=== PATIENT | male | born 1935 | race Caucasian/White ===

== ENCOUNTER 2016-12-08 20:59 | Inpatient (IN) | payer OTHER, MEDICARE ==
[~2016-12-08] VITALS: Ht 185.4 cm; Wt 71.5 kg
[~2016-12-08 20:59] MED LIST: ASPI325T PO; ATOR40TA PO; CARV12.5 PO; DONE5TAB14 PO; FERR324T4 PO; FLUT50I NASAL; FURO20 PO; GABA300C3 PO; HYDRA25 PO; IPRAAER INH; LEVO500T3 PO; LORA10 PO; LORTA5 PO; MEDR4PAK3 PO; PROT40TA PO; QUET25 PO; RISP.25 PO; SERT100 PO; [UNRECOGNIZED DRUG - CODE] PO
[2016-12-08] MEDS ORDERED: methylPREDNISolone SOD SUCC 125 MG/2 ML VIAL IV ONE (21:15)
[2016-12-08] MEDS ORDERED: SODIUM CHLORIDE 0.9% FLUSH 10 ML FLUSH IVF PRN (21:15)
[2016-12-08] MEDS ORDERED: cefTRIAXone INJ 1,000 MG in SODIUM CHLORIDE 0.9% INJ 100 ML IV ONE (21:15)
[2016-12-08] MEDS ORDERED: AZITHROMYCIN 250 MG TAB PO ONE (21:15)
[2016-12-08 21:23] VITALS: BP 142/60; PULSE 60; RESP 20; TEMP 99.6; O2SAT 97
[2016-12-08 21:27] VITALS: BP 114/57; PULSE 70; RESP 20; TEMP 99.6; O2SAT 97
[2016-12-08] MEDS: RESP: ALBUTEROL 2.5 MG/IPRATROPIUM 0.5 MG NEB (SCH) INH (21:27)
[2016-12-08 21:43] LABS: BLOOD GAS CARBOXYHEMOGLOBIN 1.7 % (0-4); BLOOD GAS HCO3 33 mmol/L (22-26); BLOOD GAS METHEMOGLOBIN 0.4 % (0-2); BLOOD GAS O2 HGB SATURATION 96 % (90-100); BLOOD GAS OXYGEN CONTENT 14.1 Vol % (12.0-20.0); BLOOD GAS PCO2 61 mmHg (38-42); BLOOD GAS PO2 105 mmHG (61-120); BLOOD GAS TOTAL HGB 10.3 G/DL (12.0-16.0); TEMP CORR TO 98.6
[2016-12-08 21:44] LABS: CRITICAL VALUE YES; DRAW SITE LT RADIAL; LITER FLOW 4 L/M; NUMBER OF ARTERIAL PUNCTURES 1; OXYGEN DEVICE NASAL CANNULA; STAT YES; ULNAR PULSE PRESENT
[2016-12-08] MEDS ORDERED: GABA300C5 PO (21:50)
[2016-12-08] MEDS ORDERED: PROT40TA PO (21:50)
[2016-12-08] MEDS ORDERED: HYDR10TA23 PO (21:50)
[2016-12-08] MEDS ORDERED: NORC5TAB PO (21:50)
[2016-12-08] MEDS ORDERED: CARV25TA PO (21:50)
[2016-12-08] MEDS ORDERED: LORA10TA PO (21:50)
[2016-12-08] MEDS ORDERED: COUM4TAB PO (21:50)
[2016-12-08] MEDS ORDERED: ASPI325T PO (21:50)
[2016-12-08] MEDS ORDERED: SERT-129 PO (21:50)
[2016-12-08] MEDS ORDERED: LIPI10TA PO (21:50)
[2016-12-08] MEDS ORDERED: OXYB5TAB10 PO (21:50)
[2016-12-08] MEDS ORDERED: FURO40TA PO (21:50)
[2016-12-08] MEDS ORDERED: FERR325T PO (21:50)
[2016-12-08] MEDS ORDERED: METH5TAB PO (21:50)
[2016-12-08 21:59] VITALS: BP 127/61; PULSE 60; RESP 20; TEMP 99.6; O2SAT 95
--- NOTE | 2016-12-08 22:04 | PD ---
HPI Chief Complaint: Respiratory Distress Time Seen by Provider: 21:12 Travel History International Travel<30 days: No Contact w/Intl Traveler<30days: No Traveled to known affect area: No History of Present Illness HPI 81-year-old male arrives by EMS from [facility]. He was short of breath there. He's known to have COPD. Paramedics note he was not on oxygen at the time and his O2 sat was 85%. 4 L nasal cannula was applied and the O2 sat increased to 97%. Evidently the patient was "declining" her the nurse on scene. He was observed to have a productive cough or rhonchi bilaterally. In the ER the patient moans now and then and coughs. He states he has no pain and no fever. Patient has history of dementia limiting history in this scenario. PFSH Past Medical History Depression: Yes Heart Rhythm Problems: Yes (a fib) Cancer: Yes (PROSTATE) Cardiac Catheterization: Yes Cardiovascular Problems: Yes (PACEMAKER, valves replaced , CABG) High Cholesterol: Yes Chest Pain: No Congestive Heart Failure: No COPD: Yes Coronary Artery Disease: No Dementia: Yes Diabetes: No Diminished Hearing: No Endocrine: No Gastrointestinal Disorders: No Glaucoma: No Genitourinary: Yes (IMPLANT TO L ARM TO DECREASE TESTOSTERONE LEVELS S/P PROSTATE CA) Headaches: No Hepatitis: No Hiatal Hernia: No Hypertension: Yes Musculoskeletal: No Neurologic: Yes (NEUROPATHY) Psychiatric: Yes Reproductive: No Respiratory: Yes (COPD) Integumentary: No Immunizations Current: Yes Seizures: No Thyroid Disease: No Tetanus Vaccination: < 5 Years Influenza Vaccination: Yes Past Surgical History Body Medical Devices: PACEMAKER Cardiac Surgery: Yes (VALVE REPLACED 2005, STENTS, PACEMAKER) Coronary Artery Bypass Graft: Yes Pacemaker: Yes (left pacemaker ) Other Surgery: Yes (Pacemaker, valves replaced , CABG) Social History Alcohol Use: No Tobacco Use: No Substance Use: No Allergies-Medications (Allergen,Severity, Reaction): Coded Allergies: No Known Allergies (Unverified , 12/08/16) Reported Meds & Prescriptions Reported Meds & Active Scripts Active Reported [place] (Hydrocodone-Acetaminophen) 5-325 mg Tab 1 Tab PO Q6H PRN Coumadin (Warfarin) 4 Mg Tab 4 Mg PO DAILY Methadone (Methadone HCl) 5 Mg Tab 5 Mg PO HS Lipitor (Atorvastatin Calcium) 10 Mg Tab 10 Mg PO HS Hydralazine (Hydralazine HCl) 10 Mg Tab 10 Mg PO TID Take with a meal Gabapentin 300 Mg Cap 300 Mg PO TID Ditropan (Oxybutynin Chloride) 5 Mg Tab 5 Mg PO Q12HR Carvedilol 25 Mg Tab 25 Mg PO BID Sertraline (Sertraline HCl) 100 Mg Tab 100 Mg PO DAILY Loratadine 10 Mg Tab 10 Mg PO DAILY Furosemide 40 Mg Tab 40 Mg PO DAILY Ferrous Sulfate 325 Mg Tab 325 Mg PO DAILY Aspirin 325 Mg Tab 325 Mg PO DAILY Protonix (Pantoprazole Sodium) 40 Mg Tab 40 Mg PO DAILY Review of Systems ROS Limitations: Poor Historian Physical Exam Narrative GENERAL: 81-year-old male mild distress occasional cough groan's yes and no to some questions oblivious to others SKIN: Focused skin assessment warm/dry. HEAD: Atraumatic. Normocephalic. EYES: Pupils equal and round. No scleral icterus. No injection or drainage. ENT: No nasal bleeding or discharge. Mucous membranes pink and moist. NECK: Trachea midline. No JVD. CARDIOVASCULAR: Regular rate and rhythm. No murmur appreciated. RESPIRATORY: Occasional cough. Rhonchi bilaterally. No dyspnea. GASTROINTESTINAL: Abdomen soft, non-tender, nondistended. Hepatic and splenic margins not palpable. MUSCULOSKELETAL: No obvious deformities. No clubbing. No cyanosis. No edema. NEUROLOGICAL: Awake and alert. No obvious cranial nerve deficits. Groans yes and no occasionally. PSYCHIATRIC: Appropriate mood and affect; insight and judgment normal. Data Data Last Documented VS Vital Signs Date Time Temp Pulse Resp B/P Pulse Ox O2 Delivery O2 Flow Rate FiO2 12/08/16 22:37 60 20 109/66 97 BiPAP 6 12/08/16 22:10 50 12/08/16 21:59 99.6 VS reivewed Orders Electrocardiogram (12/08/16 21:12) Basic Metabolic Panel (Bmp) (12/08/16 21:12) Complete Blood Count With Diff (12/08/16 21:12) Chest, Single Ap (12/08/16 21:12) Arterial Blood Gas (Abg) (12/08/16 21:12) Ecg Monitoring (12/08/16 21:12) Iv Access Insert/Monitor (12/08/16 21:12) Sodium Chloride 0.9% Flush (Ns Flush) (12/08/16 21:15) Ceftriaxone Inj (Rocephin Inj) (12/08/16 21:15) Azithromycin (Zithromax) (12/08/16 21:15) Albuterol-Ipratropium Neb (Duoneb Neb) (12/08/16 21:15) Methylprednisolone So Succ Inj (Solumedr (12/08/16 21:15) Resp Bipap / Cpap Non Invas Vt (12/08/16 ) Arterial Blood Gas (Abg) (12/08/16 ) Admit Order (Ed Use Only) (12/08/16 23:06) Labs Laboratory Tests Test 12/08/16 12/08/16 12/08/16 19:35 21:25 22:55 White Blood Count 15.0 TH/MM3 Red Blood Count 3.88 MIL/MM3 Hemoglobin 10.2 GM/DL Hematocrit 31.3 % Mean Corpuscular Volume 80.8 FL Mean Corpuscular Hemoglobin 26.2 PG Mean Corpuscular Hemoglobin 32.4 % Concent Red Cell Distribution Width 16.3 % Platelet Count 140 TH/MM3 Mean Platelet Volume 8.4 FL Neutrophils (%) (Auto) 82.5 % Lymphocytes (%) (Auto) 4.7 % Monocytes (%) (Auto) 12.7 % Eosinophils (%) (Auto) 0.0 % Basophils (%) (Auto) 0.1 % Neutrophils # (Auto) 12.4 TH/MM3 Lymphocytes # (Auto) 0.7 TH/MM3 Monocytes # (Auto) 1.9 TH/MM3 Eosinophils # (Auto) 0.0 TH/MM3 Basophils # (Auto) 0.0 TH/MM3 CBC Comment DIFF FINAL Differential Comment Sodium Level 141 MEQ/L Potassium Level 4.0 MEQ/L Chloride Level 101 MEQ/L Carbon Dioxide Level 34.0 MEQ/L Anion Gap 6 MEQ/L Blood Urea Nitrogen 50 MG/DL Creatinine 1.62 MG/DL Estimat Glomerular Filtration 41 ML/MIN Rate Random Glucose 128 MG/DL Calcium Level 8.6 MG/DL Blood Gas Puncture Site LT RADIAL RT RADIAL Blood Gas Patient Temperature 98.6 98.6 Blood Gas HCO3 33 mmol/L 32 mmol/L Blood Gas Base Excess 7.0 mmol/L 6.3 mmol/L Blood Gas Oxygen Saturation 96 % 95 % Arterial Blood pH 7.35 7.35 Arterial Blood Partial 61 mmHg 59 mmHg Pressure CO2 Arterial Blood Partial 105 mmHG 86 mmHG Pressure O2 Arterial Blood Oxygen Content 14.1 Vol % 13.3 Vol % Arterial Blood 1.7 % 1.7 % Carboxyhemoglobin Arterial Blood Methemoglobin 0.4 % 0.5 % Blood Gas Hemoglobin 10.3 G/DL 9.9 G/DL Oxygen Delivery Device NASAL CANNULA BIPAP Blood Gas Liter Flow 4 L/M Blood Gas Ventilator Setting IPAP=12 EPAP=6 Blood Gas Inspired Oxygen 45 % MDM Medical Decision Making Medical Screen Exam Complete: Yes Emergency Medical Condition: Yes Medical Record Reviewed: Yes Differential Diagnosis PNA, COPD, renal failure, electrolyte imbalance, anemia, polypharmacy Narrative Course CBC & BMP Diagram 12/08/16 19:35 ABG 7.35/61/33 ABG O2 105 on 4 L nasal cannula ABG 7.35/59/32 ABG O2 86 on BiPAP 45% FiO2 Last 24 hours Impressions Chest X-Ray 12/08/16 2112 Signed Impressions: Service Date/Time: Thursday, December 08, 2016 21:42 - CONCLUSION: Patchy non-consolidative infiltrates throughout the right lung. Possible small right pleural effusion. Delvis Cage MD EKG shows an electronic ventricular paced rhythm at a rate of 60 The patient has pneumonia. Blood cultures drawn and antibiotics started. An element of COPD is likely present as well and he was treated for the same. Case discussed with Dr. Zimmerman. Diagnosis Primary Impression: Pneumonia Qualified Code: J18.9 - Pneumonia of both lungs due to infectious organism, unspecified part of lung Admitting Information Admitting Physician Requests: Admit Vern Gambino MD Dec 08, 2016 22:04
[2016-12-08 22:10] VITALS: O2SAT 96
[2016-12-08 22:11] LABS: AUTOMATED NEUTROPHIL # 12.4 TH/MM3 (1.8-7.7); BASOPHIL % 0.1 % (0.0-2.0); HEMATOCRIT 31.3 % (39.0-51.0); HEMO FLAGS DIFF FINAL; LYMPH % 4.7 % (9.0-44.0); LYMPHOCYTE # 0.7 TH/MM3 (1.0-4.8); MEAN CELL VOLUME 80.8 FL (80.0-100.0); MEAN CORPUSCULAR HEMOGLOBIN 26.2 PG (27.0-34.0); MEAN CORPUSCULAR HGB CONC 32.4 % (32.0-36.0); MONO % 12.7 % (0.0-8.0); NEUT % 82.5 % (16.0-70.0); PLATELET COUNT 140 TH/MM3 (150-450); RED BLOOD COUNT 3.88 MIL/MM3 (4.50-5.90); RED CELL DISTRIBUTION WIDTH 16.3 % (11.6-17.2)
--- NOTE | 2016-12-08 22:34 | RADRPT ---
EXAM DATE/TIME: 12/08/2016 21:42 [place] COMPARISON: CHEST SINGLE AP, May 09, 2016, 18:22. INDICATIONS : Cough. Congestion. MEDICAL HISTORY : Cardiovascular disease. SURGICAL HISTORY : Pacemaker. CABG. ENCOUNTER: Initial ACUITY: 1 day PAIN SCORE: 7/10 LOCATION: Bilateral chest FINDINGS: Patchy areas of infiltrate are seen throughout the right lung. There is blunting of the costophrenic angle suggesting coexistent right pleural effusion. The heart is normal size. Moderate tortuosity descending thoracic aorta. Evidence of prior median sternotomy and valve replacement. Cardiac pacer leads intact. Left lung is clear. CONCLUSION: Patchy non-consolidative infiltrates throughout the right lung. Possible small right pleural effusio n. Delvis Cage MD on December 08, 2016 at 22:31 Board Certified Radiologist. This report was verified electronically.
[2016-12-08 22:37] VITALS: BP 109/66; PULSE 60; RESP 20; O2SAT 97
[2016-12-08 23:21] LABS: BLOOD GAS BASE EXCESS 6.3 mmol/L (-2-2); BLOOD GAS CARBOXYHEMOGLOBIN 1.7 % (0-4); BLOOD GAS HCO3 32 mmol/L (22-26); BLOOD GAS METHEMOGLOBIN 0.5 % (0-2); BLOOD GAS O2 HGB SATURATION 95 % (90-100); BLOOD GAS OXYGEN CONTENT 13.3 Vol % (12.0-20.0); BLOOD GAS PCO2 59 mmHg (38-42); BLOOD GAS PO2 86 mmHG (61-120); BLOOD GAS TOTAL HGB 9.9 G/DL (12.0-16.0); CRITICAL VALUE YES; TEMP CORR TO 98.6
[2016-12-08 23:22] LABS: DRAW SITE RT RADIAL; FIO2 45 %; NUMBER OF ARTERIAL PUNCTURES 1; OXYGEN DEVICE BIPAP; STAT YES; ULNAR PULSE PRESENT; VENT SETTINGS IPAP=12 EPAP=6
--- NOTE | 2016-12-08 23:26 | HHI.HP ---
HPI Service [facility] Primary Care Physician [facility] Admission Diagnosis PNA, AMS Diagnoses: (1) COPD (chronic obstructive pulmonary disease) Diagnosis: Principal (2) PNA (pneumonia) Diagnosis: Principal (3) Hypoxia Diagnosis: Principal (4) SANYA (acute kidney injury) Diagnosis: Principal (5) Dementia Diagnosis: Principal (6) DNR (do not resuscitate) Diagnosis: Principal Travel History International Travel<30 Days: No Contact w/Intl Traveler <30 Da: No Traveled to Known Affected Are: No History of Present Illness This is an 81-year-old DNR male with a PMH of COPD, Dementia, HTN, Prostate CA, CAD s/p CABG and A-fib who was sent to the ER from SNF secondary to SOB and hypoxia, O2 sat per EMS 85% on RA. Placed on 4L NC w/ O2 sat 97%. Pt unable to provide history. On arrival, BP 114/57, HR 70, O2 sat 97% on 4L seek, Temp 99.6. While in the ER, patient with increased work of breathing and recurrent hypoxia, placed on BiPAP w/ O2 sat 97% on 50% FIO2. ABG w/ pH 7.35, PCO2 61, PO2 105 on 4L NC, repeat ABG with pH 7.35, PCO2 59, PO2 86 on BiPAP. WBC 15. Creatinine 1.62, previously 1.17 05/12/16. CXR with patchy infiltrate throughout right lung, possible small right pleural effusion. S/p Rocephin/Zithro in ER. Review of Systems Except as stated in HPI: all other systems reviewed are Neg ROS: 14 point review of systems otherwise negative. Past Family Social History Past Medical History PMH: COPD, Dementia, HTN, Prostate CA, CAD s/p CABG and A-fib Past Surgical History PAST SURGICAL HISTORY: Pacemaker, Valve Replacement, Cardiac Stent, CABG Allergies: Coded Allergies: No Known Allergies (Unverified , 12/08/16) Family History PAST FAMILY HISTORY: Reviewed. No h/o DM or CAD Social History PAST SOCIAL HISTORY: Negative for alcohol, tobacco or drugs. Physical Exam Vital Signs Vital Signs Date Time Temp Pulse Resp B/P Pulse Ox O2 Delivery O2 Flow Rate FiO2 12/08/16 22:37 60 20 109/66 97 BiPAP 6 12/08/16 22:10 96 50 12/08/16 21:59 99.6 60 20 127/61 95 Nasal Cannula 3 12/08/16 21:27 99.6 70 20 114/57 97 Nasal Cannula 4 12/08/16 21:23 99.6 60 20 142/60 97 Physical Exam PE: GENERAL: Elderly white male in no acute distress. Currently on BiPAP, intermittent moaning. HEENT: PERRLA, EOMI. No scleral icterus or conjunctival pallor. No lid lag or facial droop. CARDIOVASCULAR: Regular rate and rhythm. No obvious murmurs to auscultation. No chest tenderness to palpation. RESPIRATORY: Coarse breath sounds bilaterally, occasional wheezing. GASTROINTESTINAL: Abdomen soft, non-tender, nondistended. BS normal. MUSCULOSKELETAL: Extremities without clubbing, cyanosis, or edema. No obvious deformities. NEUROLOGICAL: Awake, alert, not following commands. No focal neurologic deficits. Moving both upper and lower extremities spontaneously. Laboratory Laboratory Tests Test 12/08/16 12/08/16 12/08/16 19:35 21:25 22:55 White Blood Count 15.0 Red Blood Count 3.88 Hemoglobin 10.2 Hematocrit 31.3 Mean Corpuscular Volume 80.8 Mean Corpuscular Hemoglobin 26.2 Mean Corpuscular Hemoglobin 32.4 Concent Red Cell Distribution Width 16.3 Platelet Count 140 Mean Platelet Volume 8.4 Neutrophils (%) (Auto) 82.5 Lymphocytes (%) (Auto) 4.7 Monocytes (%) (Auto) 12.7 Eosinophils (%) (Auto) 0.0 Basophils (%) (Auto) 0.1 Neutrophils # (Auto) 12.4 Lymphocytes # (Auto) 0.7 Monocytes # (Auto) 1.9 Eosinophils # (Auto) 0.0 Basophils # (Auto) 0.0 CBC Comment DIFF FINAL Differential Comment Sodium Level 141 Potassium Level 4.0 Chloride Level 101 Carbon Dioxide Level 34.0 Anion Gap 6 Blood Urea Nitrogen 50 Creatinine 1.62 Estimat Glomerular Filtration 41 Rate Random Glucose 128 Calcium Level 8.6 Blood Gas Puncture Site LT RADIAL RT RADIAL Blood Gas Patient Temperature 98.6 98.6 Blood Gas HCO3 33 32 Blood Gas Base Excess 7.0 6.3 Blood Gas Oxygen Saturation 96 95 Arterial Blood pH 7.35 7.35 Arterial Blood Partial 61 59 Pressure CO2 Arterial Blood Partial 105 86 Pressure O2 Arterial Blood Oxygen Content 14.1 13.3 Arterial Blood 1.7 1.7 Carboxyhemoglobin Arterial Blood Methemoglobin 0.4 0.5 Blood Gas Hemoglobin 10.3 9.9 Oxygen Delivery Device NASAL CANNULA BIPAP Blood Gas Liter Flow 4 Blood Gas Ventilator Setting IPAP=12 EPAP=6 Blood Gas Inspired Oxygen 45 Result Diagram: 12/08/16193412/08/161934 Assessment and Plan Problem List: (1) COPD (chronic obstructive pulmonary disease) ICD Code: J44.9 Status: Acute (2) PNA (pneumonia) ICD Code: J18.9 Status: Acute (3) Hypoxia ICD Code: R09.02 Status: Acute (4) SANYA (acute kidney injury) ICD Code: N17.9 Status: Acute (5) Dementia ICD Code: F03.90 Status: Acute (6) DNR (do not resuscitate) ICD Code: Z66 Status: Acute Assessment and Plan A/P: 1. COPD: Chronic Respiratory Failure w/ Acute Exacerbation, initially on 4L NC w/ O2 sat 97% however increased work of breathing and persistent hypoxia, currently on BIPAP. Wean as tolerated. Solu-Medrol, DuoNeb, Symbicort. 2. PNA: CXR w/ patchy infiltrates through right lung, possible small right pleural effusion, images reviewed by me. S/p Rocephin/Zithro in ER, will continue w/ broad spectrum antibiotics as pt from SNF, start IV Vanc/Cefepime. DuoNeb prn. 3. Hypoxia: O2 sat 85% per EMS, currently 97% on BIPAP, will wean as tolerated. 4. SANYA: Creatinine 1.62, previously 1.17 on 05/12/16, check U/a, IVF for hydration, repeat labs in am. 5. Dementia: awake/alert, however not answering questions or following commands, appears to be baseline. 6. DNR: Code Status confirmed, paperwork in chart. 7. DVT Prophylaxis: SCD/Teds. 8. Social work for d/c planning as needed. 9. Case discussed w/ ER physician at length. Physician Certification 2 Midnight Certification Type: Admission for Inpatient Services Order for Inpatient Services The services are ordered in accordance with Medicare regulations or non- Medicare payer requirements, as applicable. In the case of services not specified as inpatient-only, they are appropriately provided as inpatient services in accordance with the 2-midnight benchmark. Estimated LOS (days): 2 days is the estimated time the patient will need to remain in the hospital, assuming treatment plan goals are met and no additional complications. Post-Hospital Plan: Not yet determined Trish Zimmerman MD Dec 08, 2016 23:26
[2016-12-08] MEDS ORDERED: BISACODYL 10 MG SUPP RECTAL PRN (23:30)
[2016-12-08] MEDS ORDERED: ONDANSETRON HCL 4 MG/2 ML VIAL IVP PRN (23:30)
[2016-12-08] MEDS ORDERED: ACETAMINOPHEN 325 MG TAB PO PRN (23:30)
[2016-12-08] MEDS ORDERED: RESP: ALBUTEROL 2.5 MG/IPRATROPIUM 0.5 MG NEB (PRN) NEB (23:30)
[2016-12-08] MEDS ORDERED: MORPHINE SULFATE 4 MG/ML INJ IV PRN (23:30)
[2016-12-08] MEDS ORDERED: SODIUM CHLORIDE 0.9% FLUSH 10 ML FLUSH IV FLUSH PRN (23:30)
[2016-12-09] VITALS (29 sets, daily range): BP systolic 110–168; BP diastolic 59–107; PULSE 60–82; RESP 16–22; TEMP 98.3–99; O2SAT 93–97
[2016-12-09] MEDS: methylPREDNISolone SOD SUCC 40 MG/1 ML VIAL IV PUSH SCH ×3 (03:27→16:25)
[2016-12-09 07:09] LABS: ALT (GPT) 18 U/L (12-78); ANION GAP 6 MEQ/L (5-15); AST (GOT) 18 U/L (15-37); BICARBONATE 31.6 MEQ/L (21.0-32.0); BLOOD UREA NITROGEN 49 MG/DL (7-18); CHLORIDE 104 MEQ/L (98-107); GLOMERULAR FILTRATION RATE 47 ML/MIN (>89); SODIUM (NA) 142 MEQ/L (136-145)
[2016-12-09 07:11] LABS: ALKALINE PHOSPHATASE 74 U/L (45-117); TOTAL BILIRUBIN ADULT 0.4 MG/DL (0.2-1.0)
[2016-12-09 07:13] LABS: AUTOMATED NEUTROPHIL # 11.5 TH/MM3 (1.8-7.7); BASOPHIL % 0.1 % (0.0-2.0); HEMATOCRIT 31.6 % (39.0-51.0); HEMO FLAGS DIFF FINAL; LYMPH % 3.4 % (9.0-44.0); LYMPHOCYTE # 0.4 TH/MM3 (1.0-4.8); MEAN CELL VOLUME 81.4 FL (80.0-100.0); MEAN CORPUSCULAR HEMOGLOBIN 26.8 PG (27.0-34.0); MONO % 1.9 % (0.0-8.0); NEUT % 94.6 % (16.0-70.0); PLATELET COUNT 139 TH/MM3 (150-450); RED BLOOD COUNT 3.89 MIL/MM3 (4.50-5.90); RED CELL DISTRIBUTION WIDTH 16.1 % (11.6-17.2); WHITE BLOOD COUNT 12.2 TH/MM3 (4.0-11.0)
[2016-12-09] MEDS: RESP: ALBUTEROL 2.5 MG/IPRATROPIUM 0.5 MG NEB (SCH) NEB ×4 (07:45→20:54)
[2016-12-09] MEDS: SODIUM CHLORIDE 0.9% FLUSH 10 ML FLUSH IV FLUSH SCH ×2 (09:05→20:02)
[2016-12-09] MEDS: CEFEPIME INJ 1,000 MG in SODIUM CHLORIDE 0.9% INJ 100 ML IV SCH ×2 (09:08→20:07)
[2016-12-09] MEDS: BUDESONIDE-FORMOTEROL 160/4.5 MCG INHALER INH SCH ×2 (10:24→20:01)
--- NOTE | 2016-12-09 13:24 | HHI.PR ---
Subjective Remarks Follow-up for pneumonia and COPD Patient thinks that his breathing is better, still confused, no fever or chills. On 2 L of oxygen. Objective Vitals Vital Signs Date Time Temp Pulse Resp B/P Pulse Ox O2 Delivery O2 Flow Rate FiO2 12/09/16 13:00 77 12/09/16 12:00 77 12/09/16 11:00 66 12/09/16 11:00 98.3 70 17 155/89 97 12/09/16 11:00 97 Nasal Cannula 2.00 12/09/16 10:00 64 12/09/16 09:00 70 12/09/16 08:00 66 12/09/16 07:47 97 Nasal Cannula 2.00 12/09/16 07:00 97 Nasal Cannula 2.00 12/09/16 07:00 64 12/09/16 07:00 98.3 73 18 130/73 97 12/09/16 06:00 70 12/09/16 05:00 66 12/09/16 04:00 70 12/09/16 03:32 97 Nasal Cannula 2.00 12/09/16 03:29 69 16 136/78 97 12/09/16 03:00 74 12/09/16 02:31 97 Nasal Cannula 2.00 12/09/16 02:13 61 12/09/16 01:49 99.0 62 20 130/80 95 12/09/16 01:30 96 4.00 12/09/16 01:17 97 45 12/09/16 00:26 60 20 110/59 97 BiPAP 6 12/08/16 22:37 60 20 109/66 97 BiPAP 6 12/08/16 22:10 96 50 12/08/16 21:59 99.6 60 20 127/61 95 Nasal Cannula 3 12/08/16 21:27 99.6 70 20 114/57 97 Nasal Cannula 4 12/08/16 21:23 99.6 60 20 142/60 97 I/O 12/08/16 12/08/16 12/08/16 12/09/16 12/09/16 12/09/16 07:00 15:00 23:00 07:00 15:00 23:00 Intake Total 50 ml Output Total 350 ml Balance -300 ml Intake Oral 50 ml Output Urine Total 350 ml Result Diagram: 12/09/16 0549 12/09/16 0549 Objective Remarks GENERAL: Elderly white male in no acute distress. On 2 L nasal cannula. HEENT: PERRLA, EOMI. No scleral icterus or conjunctival pallor. CARDIOVASCULAR: Regular rate and rhythm. No obvious murmurs to auscultation. No chest tenderness to palpation. RESPIRATORY: Occasional wheezing and rhonchi on the right. GASTROINTESTINAL: Abdomen soft, non-tender, nondistended. BS normal. MUSCULOSKELETAL: Extremities without clubbing, cyanosis, or edema. No obvious deformities. NEUROLOGICAL: Awake, alert, oriented to self and place but not to time. Moves extremities spontaneously. A/P Problem List: (1) COPD (chronic obstructive pulmonary disease) ICD Code: J44.9 Status: Acute (2) PNA (pneumonia) ICD Code: J18.9 Status: Acute (3) Hypoxia ICD Code: R09.02 Status: Acute (4) SANYA (acute kidney injury) ICD Code: N17.9 Status: Acute (5) Dementia ICD Code: F03.90 Status: Acute (6) DNR (do not resuscitate) ICD Code: Z66 Status: Acute Assessment and Plan This is an 81-year-old male with history of COPD, dementia, hypertension, coronary artery disease admitted for hypoxia from SNF. Acute hypoxic respiratory failure secondary to COPD exacerbation and pneumonia- previously on BiPAP, currently on 2 L of nasal cannula, continue oxygen support , Solu-Medrol, DuoNeb's, Symbicort. CXR w/ patchy infiltrates through right lung, possible small right pleural effusion, continue Vanc/Cefepime. Leukocytosis improved. Lasix on hold. Coronary artery disease-restart Coreg, hold hydralazine for now, restart statin SANYA: Creatinine 1.62, previously 1.17 on 05/12/16, urinalysis pending, continue IVF. Decreased rate, recheck BMP tomorrow. Dementia: awake/alert, however not answering questions or following commands, appears to be baseline. DO NOT RESUSCITATE DVT Prophylaxis: SCD/Teds. On Coumadin, restart. Discharge Planning Discharge back to SNF in 1-2 days. Walter Edge MD Dec 09, 2016 13:24
[2016-12-09] MEDS: SODIUM CHLOR 0.9% 1000 ML INJ 1,000 ML IV SCH (13:51)
[2016-12-09] MEDS: ASPIRIN 325 MG TAB PO SCH (13:51)
[2016-12-09] MEDS: FERROUS SULFATE 325 MG (65 MG ELEMENTAL IRON) TAB PO SCH (13:51)
[2016-12-09] MEDS: LORATADINE 10 MG TAB PO SCH (13:51)
[2016-12-09] MEDS ORDERED: CARVEDILOL 12.5 MG TAB PO ONE (16:00)
[2016-12-09] MEDS ORDERED: SERTRALINE HCL 100 MG TAB PO ONE (16:00)
[2016-12-09] MEDS: LORazepam 2 MG/ML VIAL IV PRN (16:25)
[2016-12-09 16:40] LABS: INTERNATIONAL NORMALIZED RATIO 3.2 RATIO; PROTHROMBIN TIME - PATIENT 37.4 SEC (9.8-11.6)
[2016-12-09] MEDS: GABAPENTIN 300 MG CAP PO SCH (18:45)
[2016-12-09] MEDS ORDERED: HALOPERIDOL LACTATE 5 MG/ML AMP IM ONE (19:45)
[2016-12-09] MEDS: ATORVASTATIN 10 MG TAB PO SCH (20:02)
[2016-12-09] MEDS: OXYBUTYNIN CHLORIDE 5 MG TAB PO SCH (20:04)
[2016-12-09] MEDS: CARVEDILOL 12.5 MG TAB PO SCH (20:04)
[2016-12-09] MEDS: METHADONE HCL 10 MG TAB PO SCH (20:05)
--- NOTE | 2016-12-09 21:05 | EKG ---
Date Performed: 12/08/2016 Time Performed: 21:48:35 PTAGE: 81 years EKG: ELECTRONIC VENTRICULAR PACEMAKER ABNORMAL RHYTHM ECG NO PREVIOUS TRACING DOCTOR: Cristina Jarrell Interpretating Date/Time 12/09/2016 21:03:26
[2016-12-10] VITALS (25 sets, daily range): BP systolic 131–182; BP diastolic 89–106; PULSE 62–88; RESP 18–22; TEMP 97.7–98.6; O2SAT 92–97
[2016-12-10] MEDS: SODIUM CHLOR 0.9% 1000 ML INJ 1,000 ML IV SCH (00:44)
[2016-12-10] MEDS: methylPREDNISolone SOD SUCC 40 MG/1 ML VIAL IV PUSH SCH ×2 (00:44→08:19)
[2016-12-10 01:10] LABS: BLOOD, URINE MOD (NEG); GLUCOSE,URINE NEG (NEG); HYALINE CAST, URINE 1 /lpf (RARE); KETONE, URINE NEG (NEG); MUCUS URINE FEW /lpf (OCC); NITRITE,URINE NEG (NEG); URINE COLOR YELLOW (YELLW/STRAW)
[2016-12-10 01:12] LABS: COMMENT (UR) CULT NOT INDICATED; CULTURE IF INDICATED CULT NOT INDICATED
[2016-12-10 06:41] LABS: INTERNATIONAL NORMALIZED RATIO 2.5 RATIO; PROTHROMBIN TIME - PATIENT 28.7 SEC (9.8-11.6)
[2016-12-10 06:45] LABS: POTASSIUM 3.5 MEQ/L (3.5-5.1)
[2016-12-10] MEDS ORDERED: ENALAPRILAT 1.25 MG/ML VIAL IV PRN (07:45)
[2016-12-10] MEDS ORDERED: cloNIDine HCL 0.1 MG TAB PO PRN (07:45)
[2016-12-10] MEDS: RESP: ALBUTEROL 2.5 MG/IPRATROPIUM 0.5 MG NEB (SCH) NEB ×3 (07:51→19:33)
[2016-12-10] MEDS: LORazepam 2 MG/ML VIAL IV PRN ×2 (08:17→17:01)
[2016-12-10] MEDS: ACETAMINOPHEN/HYDROcodone 325 MG/5 MG TAB PO PRN (08:17)
[2016-12-10] MEDS: PANTOPRAZOLE SOD 40 MG DELAYED RELEASE TAB PO SCH (08:18)
[2016-12-10] MEDS: CARVEDILOL 12.5 MG TAB PO SCH ×2 (08:18→23:07)
[2016-12-10] MEDS: ASPIRIN 325 MG TAB PO SCH (08:18)
[2016-12-10] MEDS: FERROUS SULFATE 325 MG (65 MG ELEMENTAL IRON) TAB PO SCH (08:18)
[2016-12-10] MEDS: GABAPENTIN 300 MG CAP PO SCH ×3 (08:18→17:00)
[2016-12-10] MEDS: SERTRALINE HCL 100 MG TAB PO SCH (08:18)
[2016-12-10] MEDS: LORATADINE 10 MG TAB PO SCH (08:18)
[2016-12-10] MEDS: OXYBUTYNIN CHLORIDE 5 MG TAB PO SCH ×2 (08:18→23:07)
[2016-12-10] MEDS: CEFEPIME INJ 1,000 MG in SODIUM CHLORIDE 0.9% INJ 100 ML IV SCH ×2 (08:19→21:00)
[2016-12-10] MEDS: SODIUM CHLORIDE 0.9% FLUSH 10 ML FLUSH IV FLUSH SCH ×2 (08:20→21:00)
[2016-12-10] MEDS: BUDESONIDE-FORMOTEROL 160/4.5 MCG INHALER INH SCH ×2 (09:00→21:00)
[2016-12-10] MEDS ORDERED: WARFARIN SOD 4 MG TAB PO SCH (09:00)
[2016-12-10] MEDS: hydrALAZINE HCL 10 MG TAB PO SCH ×3 (09:18→17:00)
--- NOTE | 2016-12-10 10:05 | HHI.PR ---
Subjective Remarks Follow-up pneumonia. Events noted required restraints and Haldol last night. Today he is calm but confused. Restraints discontinued. Discussed with RN Objective Vitals Vital Signs Date Time Temp Pulse Resp B/P Pulse Ox O2 Delivery O2 Flow Rate FiO2 12/10/16 09:19 18 12/10/16 09:00 82 12/10/16 08:00 93 Nasal Cannula 2.00 12/10/16 08:00 79 12/10/16 08:00 97.7 82 20 182/106 93 12/10/16 07:52 96 Nasal Cannula 2.00 12/10/16 06:00 88 12/10/16 05:00 84 12/10/16 04:00 Nasal Cannula 2.00 12/10/16 04:00 81 12/10/16 04:00 98.6 81 22 151/92 96 12/10/16 03:00 79 12/10/16 02:00 72 12/10/16 01:00 75 12/10/16 00:00 Nasal Cannula 2.00 12/10/16 00:00 98.1 77 18 149/89 97 12/10/16 00:00 77 12/09/16 23:00 75 12/09/16 22:00 Nasal Cannula 2.00 12/09/16 22:00 75 12/09/16 22:00 75 20 144/95 96 12/09/16 21:00 79 12/09/16 20:54 95 Nasal Cannula 2.00 12/09/16 20:00 77 12/09/16 20:00 Nasal Cannula 2.00 12/09/16 20:00 98.4 77 22 148/92 95 12/09/16 18:00 82 12/09/16 17:00 76 12/09/16 16:00 74 12/09/16 16:00 97 Nasal Cannula 2.00 12/09/16 15:00 98.8 75 17 168/107 93 12/09/16 15:00 94 Nasal Cannula 2.00 12/09/16 15:00 82 12/09/16 14:00 73 12/09/16 13:00 77 12/09/16 12:00 77 12/09/16 11:00 66 12/09/16 11:00 98.3 70 17 155/89 97 12/09/16 11:00 97 Nasal Cannula 2.00 I/O 12/09/16 12/09/16 12/09/16 12/10/16 12/10/16 12/10/16 07:00 15:00 23:00 07:00 15:00 23:00 Intake Total 50 ml 700 ml 1320 ml Output Total 350 ml 700 ml Balance -300 ml 700 ml 620 ml Intake Oral 50 ml 700 ml 480 ml IV Total 840 ml Output Urine Total 350 ml 700 ml # Voids 5 # Bowel Movements 0 1 Result Diagram: 12/09/16 0549 12/10/16 0540 Imaging Last Impressions Chest X-Ray 12/08/162111 Signed Impressions: Service Date/Time: Thursday, December 08, 2016 21:42 - CONCLUSION: Patchy non-consolidative infiltrates throughout the right lung. Possible small right pleural effusion. Delvis Cage MD Objective Remarks GENERAL: Elderly white male in no acute distress. On 2 L nasal cannula. HEENT: PERRLA, EOMI. No scleral icterus or conjunctival pallor. CARDIOVASCULAR: Regular rate and rhythm. No obvious murmurs to auscultation. No chest tenderness to palpation. RESPIRATORY: Slightly decreased on the right. GASTROINTESTINAL: Abdomen soft, non-tender, nondistended. BS normal. MUSCULOSKELETAL: Extremities without clubbing, cyanosis, or edema. No obvious deformities. NEUROLOGICAL: Awake but confused. Moves extremities spontaneously. Procedures none A/P Problem List: (1) COPD (chronic obstructive pulmonary disease) ICD Code: J44.9 Status: Acute (2) PNA (pneumonia) ICD Code: J18.9 Status: Acute (3) Hypoxia ICD Code: R09.02 Status: Acute (4) SANYA (acute kidney injury) ICD Code: N17.9 Status: Acute (5) Dementia ICD Code: F03.90 Status: Chronic (6) DNR (do not resuscitate) ICD Code: Z66 Status: Chronic Assessment and Plan This is an 81-year-old male with history of COPD, dementia, hypertension, coronary artery disease admitted for hypoxia from SNF. Acute hypoxic respiratory failure secondary to COPD exacerbation and pneumonia- previously on BiPAP, currently on 2 L of nasal cannula, continue oxygen support , Solu-Medrol, DuoNeb's, Symbicort. CXR w/ patchy infiltrates through right lung, possible small right pleural effusion, continue Vanc/Cefepime. Leukocytosis improved. Lasix on hold. Switch to by mouth prednisone Coronary artery stable continue Coreg and statin SANYA: Creatinine 1.62, previously 1.17 on 05/12/16, urinalysis without cast. Improved discontinue IVF. Microscopic hematuria. Outpatient follow-up Dementia: appears to be baseline. Discontinue restraints. Ativan and Geodon as needed Hypertension. Restart hydralazine DO NOT RESUSCITATE DVT Prophylaxis: SCD/Teds. On Coumadin, restart. Discharge Planning Not ready for discharge Hilario Ray MD Dec 10, 2016 10:05
[2016-12-10] MEDS ORDERED: DOLO10TA PO (10:06)
[2016-12-10] MEDS ORDERED: HYDR-3516 PO (10:06)
[2016-12-10] MEDS: predniSONE 20 MG TAB PO SCH (10:15)
[2016-12-10] MEDS ORDERED: COUM3TAB PO (14:21)
[2016-12-10] MEDS ORDERED: PRED20 PO (14:21)
--- NOTE | 2016-12-10 14:22 | HHI.DCPOC ---
Discharge Care Plan Diagnosis: (1) Pneumonia Your Health Problems Are: Difficulty with ADL Exercise Tolerance Goals to Promote Your Health * To prevent worsening of your condition and complications * To maintain your health at the optimal level Directions to Meet Your Goals Take your medications as prescribed Follow your dietary instruction Follow activity as directed Keep your appointments as scheduled Take your immunizations and boosters as scheduled If your symptoms worsen call your PCP, if no PCP go to Urgent Care Center or Emergency Room Smoking is Dangerous to Your Health. Avoid second hand smoke Call the 24-hour hour crisis hotline for domestic abuse at Hilario Ray MD Dec 10, 2016 14:22
[2016-12-10] MEDS ORDERED: WARFARIN SOD 3 MG TAB PO SCH (16:00)
[2016-12-10] MEDS: ATORVASTATIN 10 MG TAB PO SCH (23:08)
[2016-12-10] MEDS: METHADONE HCL 10 MG TAB PO SCH (23:08)
[2016-12-11] VITALS (18 sets, daily range): BP systolic 140–168; BP diastolic 87–121; PULSE 66–85; RESP 18; TEMP 97.2–98.3; O2SAT 93–94
[2016-12-11 06:28] LABS: INTERNATIONAL NORMALIZED RATIO 5.2 RATIO; PROTHROMBIN TIME - PATIENT 61.7 SEC (9.8-11.6)
[2016-12-11] MEDS: RESP: ALBUTEROL 2.5 MG/IPRATROPIUM 0.5 MG NEB (SCH) NEB ×2 (07:46→14:00)
[2016-12-11] MEDS: FERROUS SULFATE 325 MG (65 MG ELEMENTAL IRON) TAB PO SCH (08:10)
[2016-12-11] MEDS: PANTOPRAZOLE SOD 40 MG DELAYED RELEASE TAB PO SCH (08:10)
[2016-12-11] MEDS: CARVEDILOL 12.5 MG TAB PO SCH (08:10)
[2016-12-11] MEDS: SERTRALINE HCL 100 MG TAB PO SCH (08:10)
[2016-12-11] MEDS: OXYBUTYNIN CHLORIDE 5 MG TAB PO SCH (08:10)
[2016-12-11] MEDS: LORATADINE 10 MG TAB PO SCH (08:10)
[2016-12-11] MEDS: predniSONE 20 MG TAB PO SCH (08:10)
[2016-12-11] MEDS: hydrALAZINE HCL 10 MG TAB PO SCH ×2 (08:11→13:00)
[2016-12-11] MEDS: ASPIRIN 325 MG TAB PO SCH (08:11)
[2016-12-11] MEDS: GABAPENTIN 300 MG CAP PO SCH ×2 (08:11→13:00)
[2016-12-11] MEDS: CEFEPIME INJ 1,000 MG in SODIUM CHLORIDE 0.9% INJ 100 ML IV SCH (08:11)
[2016-12-11] MEDS: SODIUM CHLORIDE 0.9% FLUSH 10 ML FLUSH IV FLUSH SCH (08:12)
[2016-12-11] MEDS: BUDESONIDE-FORMOTEROL 160/4.5 MCG INHALER INH SCH (09:00)
--- NOTE | 2016-12-11 09:51 | HHI.PR ---
Subjective Remarks Follow-up pneumonia. States he is all right oriented to person and place. Did not require restraints since yesterday morning. Also did not use BiPAP overnight. Discussed with RN Objective Vitals Vital Signs Date Time Temp Pulse Resp B/P Pulse Ox O2 Delivery O2 Flow Rate FiO2 12/11/16 07:48 94 Nasal Cannula 2.00 12/11/16 06:00 78 12/11/16 05:00 76 12/11/16 04:05 Nasal Cannula 2.00 12/11/16 04:00 66 12/11/16 04:00 98.3 85 18 148/104 94 12/11/16 03:00 82 12/11/16 02:00 76 12/11/16 01:00 76 12/11/16 00:05 Nasal Cannula 2.00 12/11/16 00:00 78 12/11/16 00:00 98.2 79 18 157/107 93 12/10/16 23:00 76 12/10/16 22:00 76 12/10/16 21:00 74 12/10/16 20:00 74 12/10/16 20:00 98.3 84 18 131/95 94 12/10/16 19:50 Nasal Cannula 2.00 12/10/16 19:33 95 Nasal Cannula 2.00 12/10/16 19:00 72 12/10/16 18:01 78 12/10/16 17:11 62 12/10/16 16:01 66 12/10/16 15:11 92 Nasal Cannula 2.00 12/10/16 15:11 98.2 79 20 145/92 92 12/10/16 15:11 78 12/10/16 14:40 77 12/10/16 13:23 83 12/10/16 12:00 68 12/10/16 11:13 76 12/10/16 11:13 98.0 82 20 162/95 94 12/10/16 11:13 94 Nasal Cannula 2.00 12/10/16 10:03 80 I/O 12/10/16 12/10/16 12/10/16 12/11/16 12/11/16 12/11/16 07:00 15:00 23:00 07:00 15:00 23:00 Intake Total 1320 ml 510 ml 120 ml Output Total 700 ml 800 ml 1100 ml Balance 620 ml -290 ml -980 ml Intake Oral 480 ml 360 ml 120 ml IV Total 840 ml 150 ml Output Urine Total 700 ml 800 ml 1100 ml # Bowel Movements 1 0 Result Diagram: 12/09/16 0549 12/10/16 0540 Imaging Last Impressions Chest X-Ray 12/08/162111 Signed Impressions: Service Date/Time: Thursday, December 08, 2016 21:42 - CONCLUSION: Patchy non-consolidative infiltrates throughout the right lung. Possible small right pleural effusion. Delvis Cage MD Objective Remarks GENERAL: Elderly white male in no acute distress. On 2 L nasal cannula. HEENT: PERRLA, EOMI. No scleral icterus or conjunctival pallor. CARDIOVASCULAR: Regular rate and rhythm. No obvious murmurs to auscultation. No chest tenderness to palpation. RESPIRATORY: Slightly decreased on the right. GASTROINTESTINAL: Abdomen soft, non-tender, nondistended. BS normal. MUSCULOSKELETAL: Extremities without clubbing, cyanosis, or edema. No obvious deformities. NEUROLOGICAL: Awake but confused. Moves extremities spontaneously. Procedures none A/P Problem List: (1) COPD (chronic obstructive pulmonary disease) ICD Code: J44.9 Status: Acute (2) PNA (pneumonia) ICD Code: J18.9 Status: Acute (3) Hypoxia ICD Code: R09.02 Status: Acute (4) SANYA (acute kidney injury) ICD Code: N17.9 Status: Acute (5) Dementia ICD Code: F03.90 Status: Chronic (6) DNR (do not resuscitate) ICD Code: Z66 Status: Chronic Assessment and Plan This is an 81-year-old male with history of COPD, dementia, hypertension, coronary artery disease admitted for hypoxia from SNF. Acute hypoxic respiratory failure secondary to COPD exacerbation and pneumonia- previously on BiPAP, currently on 2 L of nasal cannula, continue oxygen support , Solu-Medrol, DuoNeb's, Symbicort. CXR w/ patchy infiltrates through right lung, possible small right pleural effusion, continue Cefepime. Leukocytosis improved. Lasix on hold. Switch to by mouth prednisone Coronary artery stable continue Coreg and statin SANYA: Creatinine 1.62, previously 1.17 on 05/12/16, urinalysis without cast. Improved discontinue IVF. Microscopic hematuria. Outpatient follow-up Dementia: appears to be baseline. Discontinue restraints. Ativan and Geodon as needed Hypertension. Uncontrolled increase hydralazine DO NOT RESUSCITATE Coagulopathy. No gross bleeding. Hold Coumadin for now. Repeat PT/INR in the morning DVT Prophylaxis: SCD/Teds. Coagulopathic Discharge Planning Stable for discharge to [facility] Hilario Ray MD Dec 11, 2016 09:51
[2016-12-11] MEDS ORDERED: LEVA750T PO (09:55)
--- NOTE | 2016-12-11 09:56 | HHI.DS ---
Discharge Summary Admission Date Dec 08, 2016 at 23:08 Discharge Date: Dec 11, 2016 Admitting Diagnosis PNA, AMS (1) COPD (chronic obstructive pulmonary disease) ICD Code: J44.9 Diagnosis: Principal (2) PNA (pneumonia) ICD Code: J18.9 Diagnosis: Principal (3) Hypoxia ICD Code: R09.02 Diagnosis: Principal (4) SANYA (acute kidney injury) ICD Code: N17.9 Diagnosis: Principal (5) Dementia ICD Code: F03.90 Diagnosis: Secondary (6) DNR (do not resuscitate) ICD Code: Z66 Diagnosis: Secondary Procedures none Brief History - From Admission This is an 81-year-old DNR male with a PMH of COPD, Dementia, HTN, Prostate CA, CAD s/p CABG and A-fib who was sent to the ER from SNF secondary to SOB and hypoxia, O2 sat per EMS 85% on RA. Placed on 4L NC w/ O2 sat 97%. Pt unable to provide history. On arrival, BP 114/57, HR 70, O2 sat 97% on 4L seek, Temp 99.6. While in the ER, patient with increased work of breathing and recurrent hypoxia, placed on BiPAP w/ O2 sat 97% on 50% FIO2. ABG w/ pH 7.35, PCO2 61, PO2 105 on 4L NC, repeat ABG with pH 7.35, PCO2 59, PO2 86 on BiPAP. WBC 15. Creatinine 1.62, previously 1.17 05/12/16. CXR with patchy infiltrate throughout right lung, possible small right pleural effusion. S/p Rocephin/Zithro in ER. CBC/BMP: 12/09/16 0549 12/10/16 0540 Significant Findings Laboratory Tests Test 12/08/16 12/08/16 12/08/16 12/09/16 19:35 21:25 22:55 05:49 White Blood Count 15.0 TH/MM3 12.2 TH/MM3 (4.0-11.0) (4.0-11.0) Red Blood Count 3.88 MIL/MM3 3.89 MIL/MM3 (4.50-5.90) (4.50-5.90) Hemoglobin 10.2 GM/DL 10.4 GM/DL (13.0-17.0) (13.0-17.0) Hematocrit 31.3 % 31.6 % (39.0-51.0) (39.0-51.0) Mean Corpuscular Hemoglobin 26.2 PG 26.8 PG (27.0-34.0) (27.0-34.0) Platelet Count 140 TH/MM3 139 TH/MM3 (150-450) (150-450) Neutrophils (%) (Auto) 82.5 % 94.6 % (16.0-70.0) (16.0-70.0) Lymphocytes (%) (Auto) 4.7 % 3.4 % (9.0-44.0) (9.0-44.0) Monocytes (%) (Auto) 12.7 % (0.0-8.0) Neutrophils # (Auto) 12.4 TH/MM3 11.5 TH/MM3 (1.8-7.7) (1.8-7.7) Lymphocytes # (Auto) 0.7 TH/MM3 0.4 TH/MM3 (1.0-4.8) (1.0-4.8) Monocytes # (Auto) 1.9 TH/MM3 (0-0.9) Carbon Dioxide Level 34.0 MEQ/L (21.0-32.0) Blood Urea Nitrogen 50 MG/DL (7-18) 49 MG/DL (7-18) Creatinine 1.62 MG/DL 1.45 MG/DL (0.60-1.30) (0.60-1.30) Estimat Glomerular Filtration 41 ML/MIN (>89) 47 ML/MIN (>89) Rate Random Glucose 128 MG/DL 150 MG/DL (74-106) (74-106) Blood Gas HCO3 33 mmol/L 32 mmol/L (22-26) (22-26) Blood Gas Base Excess 7.0 mmol/L 6.3 mmol/L (-2-2) (-2-2) Arterial Blood pH 7.35 7.35 (7.380-7.420) (7.380-7.420) Arterial Blood Partial 61 mmHg (38-42) 59 mmHg (38-42) Pressure CO2 Blood Gas Hemoglobin 10.3 G/DL 9.9 G/DL (12.0-16.0) (12.0-16.0) Albumin 2.9 GM/DL (3.4-5.0) Test 12/09/16 12/10/16 12/10/16 12/11/16 15:47 00:46 05:40 05:45 Prothrombin Time 37.4 SEC 28.7 SEC 61.7 SEC (9.8-11.6) (9.8-11.6) (9.8-11.6) Urine Occult Blood MOD (NEG) Urine RBC 17 /hpf (0-3) Urine Mucus FEW /lpf (OCC) Blood Urea Nitrogen 47 MG/DL (7-18) Estimat Glomerular Filtration 59 ML/MIN (>89) Rate Random Glucose 165 MG/DL (74-106) Imaging Last Impressions Chest X-Ray 12/08/162111 Signed Impressions: Service Date/Time: Thursday, December 08, 2016 21:42 - CONCLUSION: Patchy non-consolidative infiltrates throughout the right lung. Possible small right pleural effusion. Delvis Cage MD PE at Discharge GENERAL: Elderly white male in no acute distress. On 2 L nasal cannula. HEENT: PERRLA, EOMI. No scleral icterus or conjunctival pallor. CARDIOVASCULAR: Regular rate and rhythm. No obvious murmurs to auscultation. No chest tenderness to palpation. RESPIRATORY: Slightly decreased on the right. GASTROINTESTINAL: Abdomen soft, non-tender, nondistended. BS normal. MUSCULOSKELETAL: Extremities without clubbing, cyanosis, or edema. No obvious deformities. NEUROLOGICAL: Awake but confused. Moves extremities spontaneously. Hospital Course This is an 81-year-old male with history of COPD, dementia, hypertension, coronary artery disease admitted for hypoxia from SNF. Acute hypoxic respiratory failure secondary to COPD exacerbation and pneumonia- previously on BiPAP, currently on 2 L of nasal cannula, continue oxygen support , Solu-Medrol, DuoNeb's, Symbicort. CXR w/ patchy infiltrates through right lung, possible small right pleural effusion, continue Cefepime. Leukocytosis improved. Lasix on hold. Switch to by mouth prednisone Coronary artery stable continue Coreg and statin SANYA: Creatinine 1.62, previously 1.17 on 05/12/16, urinalysis without cast. Improved discontinue IVF. Microscopic hematuria. Outpatient follow-up Dementia: appears to be baseline. Discontinue restraints. Ativan and Geodon as needed Hypertension. Uncontrolled increase hydralazine DO NOT RESUSCITATE Coagulopathy. No gross bleeding. Hold Coumadin for now. Repeat PT/INR in the morning DVT Prophylaxis: SCD/Teds. Coagulopathic Left message with his son Elder Pt Condition on Discharge: Stable Discharge Disposition: Discharge to SNF Discharge Time: > 30 minutes Discharge Instructions DIET: Follow Instructions for: Heart Healthy Diet Activities you can perform: Regular-No Restrictions Activities to Avoid: Driving Follow up Referrals: PCP Follow-up - 1 Week New Orders: PROTHROMBIN TIME (PT) - Next Day PT/INR X-RAY CHEST PA & LAT - 6 Weeks New Medications: Levofloxacin (Levaquin) 750 Mg Tab 750 MG PO DAILY Infection #7 Ref 0 TAB Hydrocodone-Acetaminophen (Hydrocodone-Acetaminophen) 5-325 mg Tab 1 TAB PO Q6HR PRN PAIN SCALE 3 TO 10 #12 TAB Methadone (Dolophine) 10 Mg Tab 5 MG PO HS Pain Management #3 TAB Prednisone (Prednisone) 20 Mg Tab 40 MG PO DAILY Control Inflammation #4 TAB Continued Medications: Aspirin (Aspirin) 325 Mg Tab 325 MG PO DAILY #30 Ref 0 TAB Atorvastatin (Lipitor) 10 Mg Tab 10 MG PO HS Cholesterol Management #30 Ref 0 TAB Carvedilol (Carvedilol) 25 Mg Tab 25 MG PO BID #60 Ref 0 TAB Ferrous Sulfate (Ferrous Sulfate) 325 Mg Tab 325 MG PO DAILY Nutritional Supplement #30 Ref 0 TAB Gabapentin (Gabapentin) 300 Mg Cap 300 MG PO TID #90 Ref 0 CAP Hydralazine (Hydralazine) 10 Mg Tab 10 MG PO TID Take with a meal Blood Pressure Management Ref 0 TAB Loratadine (Loratadine) 10 Mg Tab 10 MG PO DAILY Allergy Management Ref 0 TAB Oxybutynin (Ditropan) 5 Mg Tab 5 MG PO Q12HR Urinary Symptom Managemen #60 Ref 0 TAB Pantoprazole (Protonix) 40 Mg Tab 40 MG PO DAILY Reflux #30 Ref 0 TAB Sertraline (Sertraline) 100 Mg Tab 100 MG PO DAILY #30 Ref 0 TAB Discontinued Medications: Methadone (Methadone) 5 Mg Tab 5 MG PO HS TAB Warfarin (Coumadin) 4 Mg Tab 4 MG PO DAILY Prevent Blood Clot #30 Ref 0 TAB Hilario Ray MD Dec 11, 2016 09:56
[2016-12-11] MEDS ORDERED: LEVOFLOXACIN 750 MG TAB PO SCH (10:00)
[2016-12-11] MEDS: ACETAMINOPHEN/HYDROcodone 325 MG/5 MG TAB PO PRN (15:55)
== END 2016-12-11 18:15 | DRG 190 ==
LOC: NEPC 20:59 → NEDA 23:08 → HCIS 12-09 01:30
PROVIDERS: ADMIT Internal Medicine; ATTEND Internal Medicine
PROC: 5A09357 Assistance with Respiratory Ventilation, Less than 24 Consecutive Hours, Continuous Positive Airway Pressure (ICD-10-PCS; principal; 2016-12-08)
DX: J44.0 Chronic obstructive pulmonary disease with (acute) lower respiratory infection (principal); J18.9 Pneumonia, unspecified organism; J96.01 Acute respiratory failure with hypoxia; N17.9 Acute kidney failure, unspecified; D68.9 Coagulation defect, unspecified; F03.90 Unspecified dementia, unspecified severity, without behavioral disturbance, psychotic disturbance, mood disturbance, and anxiety; I48.91 Unspecified atrial fibrillation; R31.29 Other microscopic hematuria; J44.1 Chronic obstructive pulmonary disease with (acute) exacerbation; I25.10 Atherosclerotic heart disease of native coronary artery without angina pectoris; Z95.1 Presence of aortocoronary bypass graft; Z95.5 Presence of coronary angioplasty implant and graft; Z95.2 Presence of prosthetic heart valve; Z66 Do not resuscitate; Z79.82 Long term (current) use of aspirin; Z79.01 Long term (current) use of anticoagulants; I10 Essential (primary) hypertension; E78.00 Pure hypercholesterolemia, unspecified; Z78.1 Physical restraint status; Z85.46 Personal history of malignant neoplasm of prostate
CPT/HCPCS: 36600; 71010; 80048; 80053; 81001; 82805; 85025; 85610; 93005; 94002; 94640; 94664; 96365; 96375; J0692; J0696; J1630; J2060; J2920; J2930; J7030; J7512

== ENCOUNTER 2017-06-08 07:56 | Inpatient (IN) | payer OTHER, MEDICARE ==
[~2017-06-08] VITALS: Ht 185.4 cm; Wt 76.4 kg
[~2017-06-08 07:56] MED LIST changes: -ATOR40TA PO; -CARV12.5 PO; +CARV25TA PO; +DOLO10TA PO; -DONE5TAB14 PO; -FERR324T4 PO; +FERR325T PO; -FLUT50I NASAL; -FURO20 PO; +FURO40TA PO; -GABA300C3 PO; +GABA300C5 PO; +HYDR-3516 PO; +HYDR10TA23 PO; -HYDRA25 PO; -IPRAAER INH; +LEVA750T PO; -LEVO500T3 PO; +LIPI10TA PO; -LORA10 PO; +LORA10TA PO; -LORTA5 PO; -MEDR4PAK3 PO; +NORC5TAB PO; +OXYB5TAB10 PO; +PRED20 PO; -QUET25 PO; -RISP.25 PO; +SERT-129 PO; -SERT100 PO; -[UNRECOGNIZED DRUG - CODE] PO
[2017-06-08 08:10] VITALS: BP 133/86; PULSE 60; RESP 15; TEMP 97.8; O2SAT 92
[2017-06-08] MEDS ORDERED: AMIT10TA6 PO (08:18)
[2017-06-08] MEDS ORDERED: HYDR-3801 PO (08:18)
[2017-06-08] MEDS ORDERED: DULO1CAP PO (08:18)
--- NOTE | 2017-06-08 08:24 | PD ---
Physical Exam Date Seen by Provider: Jun 08, 2017 Narrative This is a demented, elderly patient who suffered a trip and fall this morning. Data Data Last Documented VS Vital Signs Date Time Temp Pulse Resp B/P (MAP) Pulse Ox O2 Delivery O2 Flow Rate FiO2 06/08/17 08:10 97.8 60 15 133/86 (102) 92 MDM Supervised Visit with YULIANA: Yes Narrative Course I, Dr. Andres, have reviewed the advance practice practitioner's documentation and am in agreement, met with the patient face to face, made the diagnosis, and the medical decision making was done by me. *My assessment and Findings: Elderly, demented patient who had a trip and fall this morning. He has a scalp laceration. He is complaining with hip pain but there is no shortening or malrotation. He allows logrolling of the hips with no apparent pain. Condition: Stable Radha Andres MD Jun 08, 2017 08:24
[2017-06-08] MEDS ORDERED: SODIUM CHLORIDE 0.9% FLUSH 10 ML FLUSH IVF PRN (08:30)
[2017-06-08 08:50] VITALS: BP 129/80; PULSE 60; RESP 15; O2SAT 96
[2017-06-08 09:03] LABS: AUTOMATED NEUTROPHIL # 4.2 TH/MM3 (1.8-7.7); BASOPHIL % 0.4 % (0.0-2.0); EOSINOPHIL # 0.4 TH/MM3 (0-0.4); EOSINOPHIL % 6.6 % (0.0-4.0); HEMATOCRIT 31.6 % (39.0-51.0); HEMO FLAGS DIFF FINAL; LYMPH % 15.6 % (9.0-44.0); LYMPHOCYTE # 0.9 TH/MM3 (1.0-4.8); MEAN CELL VOLUME 82.8 FL (80.0-100.0); MEAN CORPUSCULAR HEMOGLOBIN 27.3 PG (27.0-34.0); MONO % 7.8 % (0.0-8.0); NEUT % 69.6 % (16.0-70.0); PLATELET COUNT 144 TH/MM3 (150-450); RED BLOOD COUNT 3.81 MIL/MM3 (4.50-5.90); RED CELL DISTRIBUTION WIDTH 15.5 % (11.6-17.2); WHITE BLOOD COUNT 6.1 TH/MM3 (4.0-11.0)
[2017-06-08 09:13] LABS: APTT (PATIENT) 29.6 SEC (24.3-30.1); INTERNATIONAL NORMALIZED RATIO 1.1 RATIO; PROTHROMBIN TIME - PATIENT 12.1 SEC (9.8-11.6)
--- NOTE | 2017-06-08 09:17 | RADRPT ---
EXAM DATE/TIME: 06/08/2017 09:07 [facility] COMPARISON: CT BRAIN W/O CONTRAST, December 07, 2015, 10:10. INDICATIONS : Trauma; fall, left scalp laceration. RADIATION DOSE: 36.53 CTDIvol (mGy) MEDICAL HISTORY : Dementia. Cardiovascular disease SURGICAL HISTORY : None. ENCOUNTER: Initial ACUITY: 1 day PAIN SCALE: 7/10 LOCATION: Left parietal TECHNIQUE: Multiple contiguous axial images were obtained of the head. Using automated exposure control and adj ustment of the mA and/or kV according to patient size, radiation dose was kept as low as reasonably a chievable to obtain optimal diagnostic quality images. DICOM format image data is available electro nically for review and comparison. FINDINGS: CEREBRUM: The ventricles are normal for age. No evidence of midline shift, mass lesion, hemorrhage or acute in farction. No extra-axial fluid collections are seen. Stable diffuse white matter atrophic changes. POSTERIOR FOSSA: The cerebellum and brainstem are intact. The 4th ventricle is midline. The cerebellopontine angle i s unremarkable. EXTRACRANIAL: The visualized portion of the orbits is intact. SKULL: The calvaria is intact. No evidence of skull fracture. There is mild soft tissue prominence overlyin g the left frontal bone which may represent an area of contusion. CONCLUSION: Stable diffuse white matter atrophic changes without evidence of acute abnormality. Focal soft tissue prominence overlying the left frontal bone which may represent an area of contusion. No evidence of fracture.. Tamar Rubin MD on June 08, 2017 at 9:14 Board Certified Radiologist. This report was verified electronically.
[2017-06-08 09:19] LABS: ALT (GPT) 11 U/L (12-78)
[2017-06-08 09:21] LABS: ALKALINE PHOSPHATASE 74 U/L (45-117); TOTAL BILIRUBIN ADULT 0.4 MG/DL (0.2-1.0)
[2017-06-08 09:22] LABS: ANION GAP 6 MEQ/L (5-15); AST (GOT) 17 U/L (15-37); BICARBONATE 28.3 MEQ/L (21.0-32.0); BLOOD UREA NITROGEN 21 MG/DL (7-18); CHLORIDE 107 MEQ/L (98-107); GLOMERULAR FILTRATION RATE 64 ML/MIN (>89); POTASSIUM 4.3 MEQ/L (3.5-5.1); SODIUM (NA) 141 MEQ/L (136-145)
--- NOTE | 2017-06-08 09:31 | RADRPT ---
EXAM DATE/TIME: 06/08/2017 09:07 [facility] COMPARISON: No previous studies available for comparison. INDICATIONS : Trauma; fall, head trauma. RADIATION DOSE: 14.94 CTDIvol (mGy) MEDICAL HISTORY : Cardiovascular disease. Dementia. SURGICAL HISTORY : None. ENCOUNTER: Initial ACUITY: 1 day PAIN SCALE: 4/10 LOCATION: neck TECHNIQUE: Volumetric scanning of the cervical spine was performed. Multiplanar reconstructions in the sagittal, coronal and oblique axial planes were performed. Using automated exposure control and adjustment o f the mA and/or kV according to patient size, radiation dose was kept as low as reasonably achievable to obtain optimal diagnostic quality images. DICOM format image data is available electronically f or review and comparison. FINDINGS: VERTEBRAE: Normal vertebral body height. No evidence of fracture. ALIGNMENT: No evidence of subluxation. C2-C3: The bony spinal canal is normal in size. No evidence of disc bulge or herniation. The neural forami na are bilaterally patent. C3-C4: Disc desiccation and disc space narrowing with uncovertebral joint hypertrophy. Severe left-sided di roforaminal narrowing. C4-C5: Disc desiccation and disc space narrowing with a lateral uncovertebral joint hypertrophy and facet de generative changes. Severe bilateral neural foraminal narrowing and moderate central canal narrowing. C5-C6: Severe disc desiccation and disc space narrowing and uncovertebral joint hypertrophy with moderate t o severe bilateral neuroforaminal narrowing. C6-C7: Degenerative disc changes with uncovertebral joint hypertrophy and mild bilateral neuroforaminal narr owing. C7-T1: The bony spinal canal is normal in size. No evidence of disc bulge or herniation. The neural forami na are bilaterally patent. CONCLUSION: Multilevel degenerative disc changes and uncovertebral joint hypertrophy contributing to multilevel n eural foraminal narrowing. No evidence of fracture, dislocation or soft tissue abnormality.. Tamar Rubin MD on June 08, 2017 at 9:23 Board Certified Radiologist. This report was verified electronically.
--- NOTE | 2017-06-08 09:40 | PD ---
HPI Chief Complaint: Fall Time Seen by Provider: 08:19 Travel History International Travel<30 days: No Contact w/Intl Traveler<30days: No Traveled to known affect area: No History of Present Illness HPI 81-year-old white male presents to the emergency department via EMS for a trip and fall at [facility]. He has a history of Alzheimer's dementia, hypertension, COPD, has a pacemaker, on aspirin daily. However, patient denied having any medical history. Patient says that he was walking with his in the facility tripped over a broken portion of the floor went to turn and fell. He hit his head but denies LOC. He complains of left upper leg and hip pain with movement. He denies dizziness, blurred vision, chest pain, shortness of breath, abdominal pain, numbness tingling in extremities. PFSH Past Medical History Alzheimer's Disease: Yes Arthritis: Yes Depression: Yes Heart Rhythm Problems: Yes (AFIB) Cancer: Yes (PROSTATE) Cardiac Catheterization: Yes Cardiovascular Problems: Yes (PACEMAKER, valves replaced , CABG, Aortic aneurysms ) High Cholesterol: Yes COPD: Yes Dementia: Yes Diminished Hearing: No Genitourinary: Yes (IMPLANT TO L ARM TO DECREASE TESTOSTERONE LEVELS S/P PROSTATE CA) Hypertension: Yes Kidney Stones: Yes Psychiatric: Yes Respiratory: Yes (COPD) Immunizations Current: Yes Radiation Therapy: Yes (Seed implants ) Past Surgical History Body Medical Devices: PACEMAKER Cardiac Surgery: Yes (VALVE REPLACED 2005, STENTS, PACEMAKER) Coronary Artery Bypass Graft: Yes Genitourinary Surgery: Yes (Radioactive Tx on prostate ) Pacemaker: Yes (left pacemaker ) Other Surgery: Yes (Pacemaker, valves replaced , CABG) Social History Alcohol Use: No Tobacco Use: No Substance Use: Yes (History of oxycodone abuse, last used 2013) Allergies-Medications (Allergen,Severity, Reaction): Coded Allergies: No Known Allergies (Unverified , 06/08/17) Reported Meds & Prescriptions Reported Meds & Active Scripts Active Dolophine (Methadone HCl) 10 Mg Tab 5 Mg PO HS Reported Amitriptyline (Amitriptyline HCl) 10 Mg Tab 10 Mg PO HS Hydralazine (Hydralazine HCl) 100 Mg Tab 100 Mg PO BID Take with meals Duloxetine DR (Duloxetine HCl) 20 Mg Capdr 20 Mg PO DAILY [place] (Hydrocodone-Acetaminophen) 5-325 mg Tab 1 Tab PO Q6H PRN Gabapentin 300 Mg Cap 300 Mg PO TID Ditropan (Oxybutynin Chloride) 5 Mg Tab 5 Mg PO Q12HR Carvedilol 25 Mg Tab 25 Mg PO BID Sertraline (Sertraline HCl) 100 Mg Tab 100 Mg PO DAILY Aspirin 325 Mg Tab 325 Mg PO DAILY Protonix (Pantoprazole Sodium) 40 Mg Tab 40 Mg PO DAILY Review of Systems Except as stated in HPI: all other systems reviewed are Neg Physical Exam Narrative 81-year-old white male well-developed well-nourished in no acute distress. Patient in c-collar upon arrival with bandages on scalp. GENERAL: Well-nourished, well-developed patient. SKIN: Focused skin assessment warm/dry. Left forearm with skin tears. Scalp: 3cm laceration with oozing of blood HEAD: Normocephalic. EYES: No scleral icterus. No injection or drainage. NECK: Supple, trachea midline. No JVD or lymphadenopathy. CARDIOVASCULAR: Regular rate and rhythm without murmurs, gallops, or rubs. RESPIRATORY: Breath sounds equal bilaterally. No accessory muscle use. GASTROINTESTINAL: Abdomen soft, non-tender, nondistended. MUSCULOSKELETAL: No cyanosis, or edema. TTP to left trochanteric region, no crepitus noted. Pt able to lift leg but with pain. Pelvis stable with movement without crepitus. BACK: Nontender without obvious deformity. No CVA tenderness. Data Data Last Documented VS Vital Signs Date Time Temp Pulse Resp B/P (MAP) Pulse Ox O2 Delivery O2 Flow Rate FiO2 06/08/17 12:30 76 16 140/90 (107) 92 Nasal Cannula 2.00 06/08/17 08:10 97.8 Orders Orders Electrocardiogram (06/08/17 08:20) Complete Blood Count With Diff (06/08/17 08:20) Comprehensive Metabolic Panel (06/08/17 08:20) Urinalysis - C+S If Indicated (06/08/17 08:20) Ct Brain W/O Iv Contrast(Rout) (06/08/17 08:20) Blood Glucose (06/08/17 08:20) Ecg Monitoring (06/08/17 08:20) Iv Access Insert/Monitor (06/08/17 08:20) Oximetry (06/08/17 08:20) Sodium Chloride 0.9% Flush (Ns Flush) (06/08/17 08:30) Act Partial Throm Time (Ptt) (06/08/17 08:39) Prothrombin Time / Inr (Pt) (06/08/17 08:39) Drug Screen, Random Urine (06/08/17 08:39) Alcohol (Ethanol) (06/08/17 08:44) Ct Cerv Spine W/O Contrast (06/08/17 ) Hip, Uni(Ap&Lat) W Ap Pelvis (06/08/17 08:52) Hydromorphone Pf Inj (Dilaudid Pf Inj) (06/08/17 09:45) Hydromorphone Pf Inj (Dilaudid Pf Inj) (06/08/17 10:30) Femur (Ap & Lat/2vws) (06/08/17 ) Ct Hip W/O Contrast (06/08/17 ) Cta Thor Abd Aorta W Iv C W3d (06/08/17 ) Admit Order (Ed Use Only) (06/08/17 ) Labs Laboratory Tests Test 06/08/17 08:50 White Blood Count 6.1 TH/MM3 Red Blood Count 3.81 MIL/MM3 Hemoglobin 10.4 GM/DL Hematocrit 31.6 % Mean Corpuscular Volume 82.8 FL Mean Corpuscular Hemoglobin 27.3 PG Mean Corpuscular Hemoglobin Concent 33.0 % Red Cell Distribution Width 15.5 % Platelet Count 144 TH/MM3 Mean Platelet Volume 7.3 FL Neutrophils (%) (Auto) 69.6 % Lymphocytes (%) (Auto) 15.6 % Monocytes (%) (Auto) 7.8 % Eosinophils (%) (Auto) 6.6 % Basophils (%) (Auto) 0.4 % Neutrophils # (Auto) 4.2 TH/MM3 Lymphocytes # (Auto) 0.9 TH/MM3 Monocytes # (Auto) 0.5 TH/MM3 Eosinophils # (Auto) 0.4 TH/MM3 Basophils # (Auto) 0.0 TH/MM3 CBC Comment DIFF FINAL Differential Comment Prothrombin Time 12.1 SEC Prothromb Time International Ratio 1.1 RATIO Activated Partial Thromboplast Time 29.6 SEC Blood Urea Nitrogen 21 MG/DL Creatinine 1.11 MG/DL Random Glucose 86 MG/DL Total Protein 6.6 GM/DL Albumin 3.1 GM/DL Calcium Level 8.6 MG/DL Alkaline Phosphatase 74 U/L Aspartate Amino Transf (AST/SGOT) 17 U/L Alanine Aminotransferase (ALT/SGPT) 11 U/L Total Bilirubin 0.4 MG/DL Sodium Level 141 MEQ/L Potassium Level 4.3 MEQ/L Chloride Level 107 MEQ/L Carbon Dioxide Level 28.3 MEQ/L Anion Gap 6 MEQ/L Estimat Glomerular Filtration Rate 64 ML/MIN Ethyl Alcohol Level LESS THAN 3 MG/DL MDM Medical Decision Making Medical Screen Exam Complete: Yes Emergency Medical Condition: Yes Differential Diagnosis L hip fracture vs L femur fracture vs L trochanteric bursitis Narrative Course 81-year-old white male presents to the emergency department via EMS for a trip and fall at [facility]. He has a history of Alzheimer's dementia, hypertension, COPD, has a pacemaker, on aspirin daily. However, patient denied having any medical history. Patient says that he was walking with his in the facility tripped over a broken portion of the floor went to turn around and fell. He hit his head but denies LOC. He complains of left upper leg and hip pain with movement. He denies dizziness, blurred vision, chest pain, shortness of breath, abdominal pain, numbness tingling in extremities. Apparently patient is a poor historian likely secondary to his Alzheimer's dementia diagnosis but was able to tell me how he fell and hurt himself. Reviewing patient's medical records from the hospital and medication list from the SNF revealed multiple medications that may cause unsteadiness of his feet. Also demonstrated anemia which may be chronic. Pt still had TTP to left trochanteric bursa region despite xrays demonstrating no fracture or acute process. CT Pelvis showed a comminuted nondisplaced intertrochanteric fracture of the left femur. Neuro and vascular remained intact. Note that pt has been NPO since last night. Incidentally, an enlargement of his distal aortic aneurysm was noted 5.9x4.6 cm was found so a CTA with runoff was ordered to evaluate this. Labs- stable. Mild anemia Laceration repair- scalp laceration repair requiring 10 edie and dermabond. I consulted Dr. Mccormack and he will have surgery tomorrow. He will be admitted to medicine. Pt was given hydralazine 10mg IV for elevated blood pressure (180/105) here in the Emergency Department. We will monitor his BP until admitted. Procedures Procedure Narrative LACERATION LOCATION: superior aspect of scalp LENGTH: 3 cm NUMBER OF STITCHES/EDIE: 10 REPAIR: The area of the laceration was prepped with Betadine and and draped with clean technique. The laceration was infiltrated with 4 cc lidocaine 1%. The wound was copiously irrigated and explored without evidence of foreign body , tendon injury or neurovascular injury. The wound was closed using 10 edie next single. This was a [-] layer repair. A sterile dressing was applied. The patient was advised to keep the dressing clean and dry. Patient tolerated the procedure well. Diagnosis Primary Impression: Scalp laceration Qualified Codes: S01.01XA - Laceration without foreign body of scalp, initial encounter Additional Impressions: Fall Qualified Codes: W19.XXXA - Unspecified fall, initial encounter Fracture, intertrochanteric, left femur Qualified Codes: S72.145A - Nondisplaced intertrochanteric fracture of left femur, initial encounter for closed fracture AAA (abdominal aortic aneurysm) Qualified Codes: I71.4 - Abdominal aortic aneurysm, without rupture Admitting Information Admitting Physician Requests: Admit Condition: Stable Kimberly Chamberlain Jun 08, 2017 09:40
[2017-06-08] MEDS ORDERED: HYDROmorphone HCL PF 1 MG/ML VIAL IV PUSH ONE ×2 (09:45→10:30)
--- NOTE | 2017-06-08 09:54 | RADRPT ---
EXAM DATE/TIME: 06/08/2017 09:21 [facility] COMPARISON: No previous studies available for comparison. INDICATIONS : Left hip pain after fall. MEDICAL HISTORY : Carcinoma, prostatic. Chronic obstructive pulmonary disease. Hypertension. A-fib., Dementia. SURGICAL HISTORY : Pacemaker. ENCOUNTER: Initial ACUITY: 1 day PAIN SCORE: 10/10 LOCATION: Left hip. FINDINGS: Examination of the left hip was performed with AP Pelvis. The primary and secondary trabecular patte rn of the femoral neck is intact. The hip joint is of normal width without significant sclerosis or bony hypertrophy. The acetabulum is grossly intact. Prosthetic seeds are present. CONCLUSION: Normal evaluation of the left hip. Tamar Rubin MD on June 08, 2017 at 9:52 Board Certified Radiologist. This report was verified electronically.
[2017-06-08 12:30] VITALS: BP 140/90; PULSE 76; RESP 16; O2SAT 92
--- NOTE | 2017-06-08 12:45 | RADRPT ---
EXAM DATE/TIME: 06/08/2017 12:28 [facility] COMPARISON: No previous studies available for comparison. INDICATIONS : Pain from fall. MEDICAL HISTORY : Carcinoma, prostatic. Chronic obstructive pulmonary disease. Hypertensio n. A-fib. Dementia. SURGICAL HISTORY : Pacemaker. ENCOUNTER: Initial ACUITY: 1 day PAIN SCORE: 10/10 LOCATION: Left hip. FINDINGS: Two view examination of the left femur demonstrates no evidence of fracture or dislocation. Bony min eralization is normal. The soft tissue structures are intact. CONCLUSION: No evidence of fracture. Tamar Rubin MD on June 08, 2017 at 12:42 Board Certified Radiologist. This report was verified electronically.
--- NOTE | 2017-06-08 13:21 | RADRPT ---
EXAM DATE/TIME: 06/08/2017 12:55 [facility] COMPARISON: CT ABDOMEN & PELVIS W/O CONTRAST, December 07, 2015, 10:17. HIP LEFT (AP&LAT 2/3VWS) W AP PELVIS, Maye 2016, 9:21. FEMUR LEFT (AP & LAT/2VWS), June 08, 2017, 12:28. INDICATIONS : Fall on to tile floor today. RADIATION DOSE: 9.53 CTDIvol (mGy) MEDICAL HISTORY : Alzheimer's Carcinoma, prostate. Hypertension. SURGICAL HISTORY : CABG ENCOUNTER: Initial ACUITY: 1 day PAIN SCALE: 9/10 LOCATION: Left hip TECHNIQUE: Volumetric scanning of the hip was performed. Using automated exposure control and adjustment of the mA and/or kV according to patient size, radiation dose was kept as low as reasonably achievable to o btain optimal diagnostic quality images. DICOM format image data is available electronically for rev iew and comparison. FINDINGS: BONES: There is a comminuted nondisplaced fracture involving the left intertrochanteric region with apparent extension to the anterior medial cortex of the optimal femur. The remainder of the osseous structure s appear intact. JOINTS: No evidence of joint narrowing or effusion. SOFT TISSUES: There is extensive atherosclerosis and interval enlargement of an abdominal aortic aneurysm seen just above the level of the common iliac artery bifurcation with the aneurysm measuring 5.9 cm anterior p osterior by 4.6 cm transversely. This is a significant increase in size as compared to the prior exam of November 2015 which measured 2.5 x 3.1 cm. Recommend further evaluation when clinically able with co ntrast enhanced CTA to further evaluate the extent of this aneurysm and the need for surgical interve ntion. CONCLUSION: Comminuted nondisplaced intertrochanteric fracture of the left femur. Interval enlargement of a dista l abdominal aortic aneurysm which has significantly enlarged as compared to the prior November 2015 exam with current maximum measurement of 6 cm anterior to posterior. Recommend further evaluation with CT A of the abdominal aortic aneurysm when clinically able to evaluate for full extent and need for surg ical intervention. These findings and recommendations were discussed with the referring ER physician at 1:21 PM on June 08, 2017. Tamar Rubin MD on June 08, 2017 at 13:10 Board Certified Radiologist. This report was verified electronically.
--- NOTE | 2017-06-08 13:54 | EKG ---
Date Performed: 06/08/2017 Time Performed: 08:41:16 PTAGE: 81 years EKG: ELECTRONIC VENTRICULAR PACEMAKER ABNORMAL RHYTHM ECG PREVIOUS TRACING : 12/08/2016 21.48 No significant change from previous tracing noted. DOCTOR: Armando Pisano Interpretating Date/Time 06/08/2017 13:54:02
[2017-06-08] MEDS ORDERED: IOHEXOL 350 MG/ML 10 ML VIAL (for RAD DIAG) IVCONTRAST ONE (15:29)
--- NOTE | 2017-06-08 15:50 | RADRPT ---
EXAM DATE/TIME: 06/08/2017 15:25 [facility] COMPARISON: CHEST SINGLE AP, December 08, 2016, 21:42. INDICATIONS : Pain from fall, shortness of breath. MEDICAL HISTORY : Cardiovascular disease. SURGICAL HISTORY : CABG. Pacemaker. ENCOUNTER: Initial ACUITY: 1 day PAIN SCORE: 0/10 LOCATION: Bilateral chest FINDINGS: Stable dual-lead pacemaker in place. A median sternotomy wire is in place with postsurgical features of prior cardiac valve replacement. Lungs are hyper aerated with mild interstitial prominence. Slight elevation of the right hemidiaphragm. Cardiac silhouette is enlarged. No significant pneumothorax or displaced rib fractures. CONCLUSION: 1. Cardiomegaly with mild positive fluid balance. 2. No significant pneumothorax, effusion, or displaced rib fractures. Juan Antonio Sarabia MD on June 08, 2017 at 15:47 Board Certified Radiologist. This report was verified electronically.
[2017-06-08] MEDS ORDERED: ACETAMINOPHEN/HYDROcodone 325 MG/5 MG TAB PO PRN (16:00)
[2017-06-08] MEDS ORDERED: ONDANSETRON HCL 4 MG/2 ML VIAL IV PUSH PRN (16:00)
[2017-06-08 16:14] VITALS: BP 188/100; PULSE 80; RESP 15; O2SAT 92
[2017-06-08] MEDS: SODIUM CHLOR 0.9% 1000 ML INJ 1,000 ML IV SCH (16:20)
--- NOTE | 2017-06-08 16:30 | RADRPT ---
EXAM DATE/TIME: 06/08/2017 14:39 [facility] COMPARISON: CT PULMONARY ANGIOGRAM, October 08, 2015, 16:06. CT ABDOMEN & PELVIS W/O CONTRAST, December 07, 2015, 1 0:17. INDICATIONS : Umbilical abdomen pain. IV CONTRAST: 98 cc Omnipaque 350 (iohexol) IV RADIATION DOSE: 16.47 CTDIvol (mGy) MEDICAL HISTORY : Cardiovascular disease. Carcinoma, prostate. Hypertension. SURGICAL HISTORY : CABG ENCOUNTER: Initial ACUITY: 1 day PAIN SCALE: 6/10 LOCATION: umbilical abdomen TECHNIQUE: Volumetric scanning was performed using a multi-row detector CT scanner. The data was post processed with a variety of visualization algorithms including full volume maximum intensity projection, multi -planar sliding thin slab reformation, curved planar reformation, and surface rendering techniques. Using automated exposure control and adjustment of the mA and/or kV according to patient size, radiat ion dose was kept as low as reasonably achievable to obtain optimal diagnostic quality images. DICOM format image data is available electronically for review and comparison. FINDINGS: LUNGS: Focal airspace consolidation containing coarse calcifications in the posterior right lung base. Calci fied granuloma in the right middle lobe. A smaller calcified granuloma in the left upper lobe periphe rally. Mild pleural thickening with calcified pleural plaque in the right lung base. Overall findings are slightly improved since prior exam. MEDIASTINUM: Mildly prominent mediastinal nodes with the largest measuring up to 1.3 cm in the anterior carinal re gion. AICD the leads in place. Four-chamber cardiac enlargement without significant pericardial effus ion. Aortic valve replacement. Coronary artery calcifications. ABDOMEN: The liver and spleen are free of focal defects. The gallbladder and pancreas demonstrate no abnormali ty. The adrenal glands are normal. There is a stable cyst in the posterior mid left kidney. There is a second hyperdense cystic lesion in the inferior pole of the left kidney which corresponds to a cyst on prior exam. This appears smaller in size. Findings are consistent with interval cyst hemorrhage. The kidneys otherwise demonstrate symmetrical enhancement without evidence for hydronephrosis. There are small punctate calyceal calcifications in the mid left kidney. No free fluid or abdominal masses are identified. Moderate amount of stool in the rectum. Bowel otherwise appears unremarkable without evidence for obstruction. PELVIS: No evidence of free fluid or pelvic mass. No abnormally enlarged inguinal or retroperitoneal lymph no enriqueta are present. Radiation prostate seeds in place. The bladder is unremarkable. THORACIC AORTA: Ascending thoracic aorta is aneurysmal measuring approximately 5.9 x 7.0 cm including an apparent lar ge ulcerated plaque at the junction of the thoracic arch. This ulceration is new since prior exam. Th ere is no significant new aortic fluid collections or stranding in comparison to prior exam. Thoracic arch is mildly aneurysmal measuring up to 3.6 cm. There is 3 vessel arch anatomy. Sparse vessels are patent. The descending thoracic arch is heavily calcified and mildly ectatic measuring up to 3.6 cm. No significant periaortic stranding or fluid collection. ABDOMINAL AORTA: There is a bilobed suprarenal fusiform aortic aneurysm. The suprarenal sac measures 5.3 x 4.6 cm slig htly increased in size from 5.1 cm on prior exam. The infrarenal sac measures approximately 7.1 x 6.3 cm again enlarged from prior exam measuring 5.5 cm. There is moderate amount of mural thrombus in th e infrarenal sac. There is a single left renal artery which appears at least moderately stenosed at t he origin. There are apparent 3 right-sided renal arteries. There is mild stenosis of the celiac orig in. SMA is patent. KASSANDRA is patent. PELVIC VESSELS: Common iliac arteries are mildly aneurysmal measuring 1.6 cm on the right and 1.7 cm on the left. Mil dly calcified external iliac arteries with mild stenosis in the left external iliac origin. CONCLUSION: 1. Enlarging ascending thoracic earache aneurysm now measuring 5.9 x 7.0 cm including an apparent lar ge ulcerated plaque at the junction of the thoracic arch which is new since prior exam. No evidence f or rupture or leak at this time. 2. Enlarging bilobed suprarenal fusiform aortic aneurysm with suprarenal sac measuring 5.3 x 4.6 cm a nd infrarenal sac measuring 7.1 x 6.3 cm. No evidence for rupture or leak at this time. 3. Multiple ancillary findings, as above. Juan Antonio Sarabia MD on June 08, 2017 at 16:10 Board Certified Radiologist. This report was verified electronically.
[2017-06-08] MEDS: GABAPENTIN 300 MG CAP PO SCH (18:00)
--- NOTE | 2017-06-08 18:27 | PD.ORT.PN ---
Subjective Subjective Remarks Left hip pain Objective Vitals Vital Signs Date Time Temp Pulse Resp B/P (MAP) Pulse Ox O2 Delivery O2 Flow Rate FiO2 06/08/17 16:14 80 15 188/100 (129) 92 Nasal Cannula 2.00 06/08/17 12:30 76 16 140/90 (107) 92 Nasal Cannula 2.00 06/08/17 10:45 14 06/08/17 08:50 60 15 129/80 (96) 06/08/17 08:50 60 15 129/80 (96) 96 Nasal Cannula 2.00 06/08/17 08:21 60 96 Nasal Cannula 2.00 06/08/17 08:10 97.8 60 15 133/86 (102) 92 Result Diagram: 06/08/17 0850 06/08/17 0850 Other Results Laboratory Tests Test 06/08/17 08:50 Prothromb Time International Ratio 1.1 RATIO Prothrombin Time 12.1 SEC (9.8-11.6) Imaging Last 24 hours Impressions Hip and Pelvis X-Ray 06/08/17 0852 Signed Impressions: Service Date/Time: Thursday, June 08, 2017 09:21 - CONCLUSION: Normal evaluation of the left hip. Tamar Rubin MD Head CT 06/08/17 0820 Signed Impressions: Service Date/Time: Thursday, June 08, 2017 09:07 - CONCLUSION: Stable diffuse white matter atrophic changes without evidence of acute abnormality. Focal soft tissue prominence overlying the left frontal bone which may represent an area of contusion. No evidence of fracture.. Tamar Rubin MD Cervical Spine CT 06/08/17 0000 Signed Impressions: Service Date/Time: Thursday, June 08, 2017 09:07 - CONCLUSION: Multilevel degenerative disc changes and uncovertebral joint hypertrophy contributing to multilevel neural foraminal narrowing. No evidence of fracture, dislocation or soft tissue abnormality.. Tamar Rubin MD Assessment & Plan Problem List: (1) Fracture, intertrochanteric, left femur ICD Codes: S72.142A - Displaced intertrochanteric fracture of left femur, initial encounter for closed fracture Status: Acute Qualifiers: Qualified Codes: S72.145A - Nondisplaced intertrochanteric fracture of left femur, initial encounter for closed fracture Assessment and Plan The patient is normally ambulatory The recommendation is ORIF with Troch nail Saturday at 8 am I will attempt to contact family members Full consult dictated Leobardo Mccormack MD Jun 08, 2017 18:27
[2017-06-08] MEDS ORDERED: hydrALAZINE HCL 20 MG/ML VIAL IV PUSH ONE (18:30)
[2017-06-08 20:03] VITALS: BP 167/85; PULSE 87; RESP 20; O2SAT 96
--- NOTE | 2017-06-08 20:07 | MB ---
cc: MELVIN LOPEZ DATE OF CONSULTATION 06/08/17 REASON FOR CONSULTATION Requested to evaluate left hip fracture. HISTORY OF PRESENT ILLNESS Avelino Gooden is an 81-year-old male who carries a diagnosis of dementia and resides at [facility] who fell earlier today and sustained an injury to his left hip. He was brought to [facility] where x-rays revealed a nondisplaced left hip intertrochanteric fracture. In the workup he was noted to have slightly enlarged aortic aneurysm which is a known aneurysm and he had further workup angiogram to evaluate this. No significant progression of the angiogram. PAST MEDICAL HISTORY 1. Alzheimer's disease 2. Hypertension, 3. COPD, 4. Aortic aneurysm 5. Status post pacemaker placement MEDICATIONS Regular include 1. Amitriptyline. 2. Hydralazine 3. Duloxetine 4. Hydrocodone 5. Gabapentin 6. Oxybutinin 7. Carvedilol 8. Sertraline. 9. Aspirin. 10. Protonix. PHYSICAL EXAMINATION The patient is alert and corporative, states he understands when he is told that he has a hip fracture. He has tenderness and swelling about the left hip. No skin breakdown. His knee is soft. His ankle is nontender. His distal pulse is 2+. His distal neuro is intact. His right lower extremity is benign. His upper extremities are benign. IMAGING STUDIES X-rays reviewed, left hip which demonstrated a nondisplaced left hip intertrochanteric fracture. MEDICAL DECISION MAKING His condition was discussed with the patient and with medical providers and the options of treatment were discussed. The recommendation is surgical intervention open reduction internal fixation as he otherwise is ambulatory. This is for pain control and to stabilize the fracture so that it will not displace. I will attempt to contact family members to discuss proceeding with surgical intervention in the form of open reduction internal fixation with low risk of infection, nerve damage, blood vessel and failure of internal fixation and need for revision surgery and unforeseen possible complications. MD MARVIN Zavala/ /6:12 PM /7:49 PM
[2017-06-08] MEDS ORDERED: POVIDONE IODINE 5% (ANTISEPSIS KIT) 4 APPLICATIONS EACH NARE PRN (20:30)
[2017-06-08] MEDS ORDERED: CHLORHEXIDINE GLUCONATE 2 % 1 PACK (2 CLOTHS) TOPICAL PRN (20:30)
[2017-06-08] MEDS ORDERED: SODIUM CHLORID 0.9% 500 ML IV PRN (20:30)
[2017-06-08] MEDS ORDERED: LACTATED RINGER'S 1000 ML IV PRN (20:30)
[2017-06-08] MEDS ORDERED: METOPROLOL TARTRATE 25 MG TAB PO PRN (20:30)
[2017-06-08] MEDS ORDERED: INSULIN HUMAN REGULAR 1,000 UNITS/10 ML VIAL SQ PRN (20:30)
[2017-06-08 20:45] VITALS: BP 152/79; PULSE 86; RESP 18; TEMP 98; O2SAT 94
[2017-06-08 21:31] LABS: BLOOD, URINE MOD (NEG); COMMENT (UR) CULT NOT INDICATED; CULTURE IF INDICATED CULT NOT INDICATED; GLUCOSE,URINE NEG (NEG); KETONE, URINE 40 mg/dL (NEG); MUCUS URINE FEW /lpf (OCC); NITRITE,URINE NEG (NEG); PH, URINE 6.5 (5.0-8.5); SQUAMOUS EPITHELIAL CELL URINE <1 /hpf (0-5); URINE COLOR LIGHT-YELLOW (YELLW/STRAW)
[2017-06-08] MEDS: CARVEDILOL 12.5 MG TAB PO SCH (21:56)
[2017-06-08] MEDS: hydrALAZINE HCL 100 MG TAB PO SCH (21:56)
[2017-06-08] MEDS: METHADONE HCL 10 MG TAB PO SCH (21:56)
[2017-06-08] MEDS: AMITRIPTYLINE HCL 10 MG TAB PO SCH (21:56)
[2017-06-08] MEDS: OXYBUTYNIN CHLORIDE 5 MG TAB PO SCH (21:57)
[2017-06-09 00:16] VITALS: BP 109/62; PULSE 62; RESP 18; TEMP 96; O2SAT 94
[2017-06-09] MEDS: MORPHINE SULFATE 4 MG/ML INJ IV PUSH PRN ×5 (00:38→19:57)
[2017-06-09] MEDS ORDERED: ACETAMINOPHEN/HYDROcodone 325 MG/5 MG TAB PO PRN (00:45)
[2017-06-09] MEDS: SODIUM CHLOR 0.9% 1000 ML INJ 1,000 ML IV SCH ×2 (03:55→15:50)
[2017-06-09 04:05] VITALS: BP 154/81; PULSE 67; RESP 18; TEMP 96.5; O2SAT 94
[2017-06-09 05:23] LABS: HEMATOCRIT 31.4 % (39.0-51.0); MEAN CELL VOLUME 83.6 FL (80.0-100.0); MEAN CORPUSCULAR HEMOGLOBIN 27.3 PG (27.0-34.0); MEAN CORPUSCULAR HGB CONC 32.6 % (32.0-36.0); PLATELET COUNT 133 TH/MM3 (150-450); RED BLOOD COUNT 3.75 MIL/MM3 (4.50-5.90); RED CELL DISTRIBUTION WIDTH 15.4 % (11.6-17.2); REVIEW FLAG FINAL; WHITE BLOOD COUNT 16.5 TH/MM3 (4.0-11.0)
[2017-06-09 06:02] LABS: BICARBONATE 25.5 MEQ/L (21.0-32.0); POTASSIUM 3.7 MEQ/L (3.5-5.1)
[2017-06-09] MEDS ORDERED: GENTAMICIN SULFATE 80 MG/2 ML VIAL ONE (06:16)
[2017-06-09 08:00] VITALS: BP 112/68; PULSE 67; RESP 17; TEMP 98.3; O2SAT 91
[2017-06-09] MEDS ORDERED: ceFAZolin 2 GM PREMIX 50 ML ONE (08:27)
[2017-06-09] MEDS ORDERED: VANCOMYCIN HCL 1000 MG VIAL ONE (08:27)
[2017-06-09] MEDS: CARVEDILOL 12.5 MG TAB PO SCH ×2 (09:00→19:58)
[2017-06-09] MEDS: hydrALAZINE HCL 100 MG TAB PO SCH ×2 (09:00→21:00)
[2017-06-09] MEDS: DULoxetine HCl DR 20 MG CAP PO SCH (09:00)
[2017-06-09] MEDS: PANTOPRAZOLE SOD 40 MG DELAYED RELEASE TAB PO SCH (09:00)
[2017-06-09] MEDS: OXYBUTYNIN CHLORIDE 5 MG TAB PO SCH ×2 (09:00→19:59)
[2017-06-09] MEDS: GABAPENTIN 300 MG CAP PO SCH ×3 (09:00→18:33)
[2017-06-09] MEDS: SERTRALINE HCL 100 MG TAB PO SCH (09:00)
[2017-06-09] MEDS ORDERED: BUPIVACAINE/EPINEPHRINE 0.5% 50 ML VIAL ONE (09:12)
[2017-06-09] MEDS ORDERED: Post-op Orders (for Pharmacy) MISC XX ONE (10:00)
[2017-06-09] MEDS ORDERED: MAGNESIUM HYDROXIDE SUSP 30 ML CUP PO PRN (10:00)
[2017-06-09] MEDS ORDERED: LACTULOSE SYRUP 20 GM/30 ML CUP PO PRN (10:00)
[2017-06-09] MEDS ORDERED: ACETAMINOPHEN 325 MG TAB PO PRN (10:00)
[2017-06-09] MEDS ORDERED: SODIUM CHLORIDE 0.9% FLUSH 10 ML FLUSH IV FLUSH PRN (10:00)
[2017-06-09] MEDS ORDERED: diphenhydrAMINE HCL 25 MG CAP PO PRN (10:00)
[2017-06-09] MEDS ORDERED: BISACODYL 10 MG SUPP RECTAL PRN (10:00)
[2017-06-09] MEDS ORDERED: SENNOSIDES 8.6 MG TAB PO PRN (10:00)
--- NOTE | 2017-06-09 10:00 | RADRPT ---
EXAM DATE/TIME: 06/09/2017 09:14 [facility] COMPARISON: CT HIP LEFT W/O CONTRAST, June 08, 2017, 12:55. INDICATIONS : Post left hip hardware placement MEDICAL HISTORY : Carcinoma, prostatic. Chronic obstructive pulmonary disease. Hypertension. SURGICAL HISTORY : Pacemaker. ENCOUNTER: Subsequent ACUITY: 2 days PAIN SCORE: Non-responsive. LOCATION: Left Hip FINDINGS: Fluoroscopic imaging of the postoperative left hip demonstrates placement of the intramedullary sheba a nd brought through the left femoral neck. The osseous structures demonstrate good anatomic alignment. Prostatic seeds are again noted. CONCLUSION: Status post ORIF of a left intratrochanteric fracture with good anatomic alignment. Tamar Rubin MD on June 09, 2017 at 9:57 Board Certified Radiologist. This report was verified electronically.
--- NOTE | 2017-06-09 10:12 | PD.OP ---
Operative Report Preoperative Diagnosis: (1) Fracture, intertrochanteric, left femur Postoperative Diagnosis: (1) Fracture, intertrochanteric, left femur Procedure: Left Hip Open Reduction and Internal Fixation with Synthes Trochanteric Nestor Anesthesia: General Surgeon: Leobardo Mccormack MD Pole Incisor Operator(s): Wes VANG Operation and Findings: see dictation Leobardo Mccormack MD Jun 09, 2017 10:12
--- NOTE | 2017-06-09 10:57 | MP ---
cc: MELVIN LOPEZ M.D. DATE OF SURGERY: 06/09/2017 PREOPERATIVE DIAGNOSIS: Left hip intertrochanteric fracture. POSTOPERATIVE DIAGNOSIS Left hip intertrochanteric fracture. PROCEDURE Left hip open reduction, internal fixation using Synthes 11 millimeter trochanteric nail. ANESTHESIA: General. SURGEON Melvin Lopez MD KARATE INSTRUCTOR SURGEON CIERA Benites. ESTIMATED BLOOD LOSS: Less than 50 cc. COMPLICATIONS: None known. INDICATIONS: Avelino Gooden is an 81-year-old male who sustained a fall and fractured his left hip, difficult to see on plain x-rays but more clear on CT scan. The options of treatment were thoroughly discussed with the patient and the patient's family. Full discussion ultimately came to the conclusion that he is ambulatory and appears to be villanueva to fixate the bone if medically acceptable and workup included angiographic evaluation of his aneurysms which appear to be unchanged and, therefore, it seemed reasonable to proceed with surgery with the understanding that there is a theoretical risk of progression of the aneurysm. Risks and benefits thoroughly discussed and detail informed consent was obtained. The hair assistant Wes Rodriguez is an advanced registered nurse practitioner. His skill set was medically necessary for the performance of the operation. DESCRIPTION OF PROCEDURE: The patient was brought to the operating room. He is placed under general anesthetic. The left hip was prepped and draped in usual sterile fashion. IV antibiotics were given. Time out was completed. The hip was evaluated fluoroscopically in the AP and lateral plane. We proceeded with superior incision, guide pin to the tip of the trochanter using specially guide, sheba pinned down, good position in AP and lateral plane. The golf course assistant helped with manipulation of the complex instrumentation, proceeded to over ream, selected our sheba, directed in position. Irrigation Laborer help holding rotation into position. Outrigger device used. New incision, new incision, retraction, placement of guide pin, lateral cortex, good position. Confirmed good position in the lateral plane and then over-reamed, and placement of 115 millimeter flange now, rotationally locked and then allowed for compression and then proceeded with Outrigger device for placement, distal locking screws. Screws applied. Final x-rays AP and lateral showed the final result, irrigated out with copious amounts of irrigation. Proceeded to inject Marcaine with epinephrine throughout. Closed in layers with absorbable sutures. Subcuticular on the skin. Steri-Strips applied. Sterile dressing applied. The patient was awoke and returned to the Recovery Room in stable condition. MD MARVIN Zavala/PATRICIO /10:13 AM /10:29 AM
[2017-06-09] MEDS ORDERED: DO NOT ADM ANY ANTICOAGULANT DRUGS PRN (11:00)
[2017-06-09] MEDS ORDERED: LACTATED RINGER'S 1000 ML INJ 2,000 ML IV ONE (12:00)
[2017-06-09] MEDS ORDERED: PROPOFOL 200 MG/20 ML AMP IV ONE (12:00)
[2017-06-09] MEDS ORDERED: PHENYLEPH/NS 1000 MCG/10 ML SYR IV ONE (12:00)
[2017-06-09] MEDS ORDERED: ePHEDrine/NS 25 MG/5 ML SYR IV ONE (12:00)
[2017-06-09] MEDS ORDERED: ceFAZolin INJ 1,000 MG VIAL IV ONE (12:00)
[2017-06-09] MEDS ORDERED: LIDOCAINE HCL 1% PF 5 ML AMPULE OTHER ONE (12:00)
--- NOTE | 2017-06-09 12:01 | PD.CONS ---
History of Present Illness Service CT Surgery Consult Requested By [facility] Reason for Consult Thoracic aortic aneurysm Primary Care Physician Bill Simon M.D. Diagnoses: (1) Thoracic aortic aneurysm (2) AAA (abdominal aortic aneurysm) without rupture History of Present Illness 81 y/o male with h/o Alzheimer's dementia residing in a SNF fell and broke his hip. He presented and underwent imaging studies which disclosed an enlarging AAA as well as a TAA. I was asked to see him for the TAA. This is a known condition and the patient has had an extensive evaluation at [facility]. He has been managed conservatively and declared not a surgical candidate. Review of Systems ROS Limitations: Clinical Condition, Altered Mental Status Constitutional: COMPLAINS OF: Fatigue, DENIES: Diaphoretic episodes, Fever, Weight gain, Weight loss, Chills, Dizziness, Change in appetite, Night Sweats Endocrine: DENIES: Heat/cold intolerance, Polydipsia, Polyuria, Polyphagia Eyes: DENIES: Blurred vision, Diplopia, Eye inflammation, Eye pain, Vision loss , Photosensitivity, Double Vision Ears, nose, mouth, throat: DENIES: Tinnitus, Hearing loss, Vertigo, Nasal discharge, Oral lesions, Throat pain, Hoarseness, Ear Pain, Running Nose, Epistaxis, Sinus Pain, Toothache, Odynophagia Respiratory: COMPLAINS OF: Cough, DENIES: Apneas, Snoring, Wheezing, Hemoptysis , Sputum production, Shortness of breath Cardiovascular: DENIES: Chest pain, Palpitations, Syncope, Dyspnea on Exertion , PND, Lower Extremity Edema, Orthopnea, Claudication Gastrointestinal: DENIES: Abdominal pain, Black stools, Bloody stools, Constipation, Diarrhea, Nausea, Vomiting, Difficulty Swallowing, Anorexia Musculoskeletal: COMPLAINS OF: Joint pain, Muscle aches, Stiffness Integumentary: DENIES: Abnormal pigmentation, Nail changes, Pruritus, Rash Hematologic/lymphatic: DENIES: Bruising, Lymphadenopathy Immunologic/allergic: DENIES: Eczema, Urticaria Neurologic: COMPLAINS OF: Abnormal gait, Tremor, Poor Balance, DENIES: Headache , Localized weakness, Paresthesias, Seizures, Speech Problems Psychiatric: DENIES: Anxiety, Confusion, Mood changes, Depression, Hallucinations, Agitation, Suicidal Ideation, Homicidal Ideation, Delusions Past Family Social History Allergies: Coded Allergies: No Known Allergies (Unverified , 06/08/17) Active Ordered Medications Current Medications Medications (Trade) Dose Ordered Sig/Renetta Route Start Time Stop Time Status Last Admin (NS Flush) 2 ml UNSCH PRN IVF 06/08/17 08:30 (Elavil) 10 mg HS PO 06/08/17 21:00 06/08/17 21:56 (Coreg) 25 mg BID PO 06/08/17 21:00 06/08/17 21:56 (Cymbalta Dr) 20 mg DAILY PO 06/09/17 09:00 (Neurontin) 300 mg TID PO 06/08/17 18:00 (Apresoline) 100 mg BID PO 06/08/17 21:00 06/08/17 21:56 (Dolophine) 5 mg HS PO 06/08/17 21:00 06/08/17 21:56 (Ditropan) 5 mg Q12HR PO 06/08/17 21:00 06/08/17 21:57 (Protonix) 40 mg DAILY PO 06/09/17 09:00 (Zoloft) 100 mg DAILY PO 06/09/17 09:00 Sodium Chloride 1,000 ml @ 84 mls/hr [id number] IV 06/08/17 16:00 06/08/17 16:20 (Morphine Inj) 4 mg Q3H PRN IV PUSH 06/08/17 16:00 06/09/17 06:39 (Zofran Inj) 4 mg Q6HR PRN IV PUSH 06/08/17 16:00 Lactated Ringer's 1,000 ml @ 30 mls/hr Q24H PRN IV 06/08/17 20:30 06/11/17 20:29 Sodium Chloride 500 ml @ 30 mls/hr [id number] PRN IV 06/08/17 20:30 06/11/17 20:29 (Lopressor) 25 mg MUNICIPAL CLERK PRN PO 06/08/17 20:30 06/11/17 20:29 (Betadine 5% Antisepsis Kit) 1 applic MUNICIPAL CLERK PRN EACH NARE 06/08/17 20:30 06/11/17 20:29 (Chlorhexidine 2% Cloth) 3 pack MUNICIPAL CLERK PRN TOPICAL 06/08/17 20:30 06/11/17 20:29 (NovoLIN R INJ) See Protocol Table ... MUNICIPAL CLERK PRN SQ 06/08/17 20:30 06/11/17 20:29 ([place] 5-325 Mg) 1 tab Q6H PRN PO 06/09/17 00:45 (NS Flush) 2 ml UNSCH PRN IV FLUSH 06/09/17 10:00 UNV (Post-op Orders (for Pharmacy)) STAT ONCE XX 06/09/17 10:00 06/09/17 10:01 UNV (Lovenox Inj) 40 mg Q24H SQ 06/09/17 10:00 UNV Cefazolin Sodium 1000 mg/Sodium Chloride 100 ml @ 200 mls/hr Q8H IV 06/09/17 10:00 06/10/17 07:59 UNV ([place] 5-325 Mg) 1 tab Q4H PRN PO 06/09/17 10:00 UNV (Tylenol) 650 mg Q6H PRN PO 06/09/17 10:00 UNV (Theragran M Tab) 1 tab DAILY PO 06/10/17 09:00 UNV (Benadryl) 25 mg Q6H PRN PO 06/09/17 10:00 UNV (Natividad-Colace) 1 tab BID PO 06/09/17 21:00 UNV (Milk Of Magnesia Liq) 30 ml Q12H PRN PO 06/09/17 10:00 UNV (Senokot) 17.2 mg Q12H PRN PO 06/09/17 10:00 UNV (Dulcolax Supp) 10 mg DAILY PRN RECTAL 06/09/17 10:00 UNV (Lactulose Liq) 30 ml DAILY PRN PO 06/09/17 10:00 UNV Miscellaneous Information ALL NURSING DEPARTME... UNSCH PRN .XX 06/09/17 11:00 06/10/17 10:59 Family History unremarkable Social History Patient resides in a SNF. His family is at his bedside. Remote tobacco abuse Denies ETOH Physical Exam Vital Signs Vital Signs Date Time Temp Pulse Resp B/P (MAP) Pulse Ox O2 Delivery O2 Flow Rate FiO2 06/09/17 10:45 97.7 82 15 135/58 (83) 97 Nasal Cannula 3 06/09/17 10:30 74 15 112/59 (76) 97 Nasal Cannula 3 06/09/17 10:15 72 17 128/64 (85) 95 Nasal Cannula 3 06/09/17 10:00 71 14 138/71 (93) 93 Nasal Cannula 3 06/09/17 09:52 97.7 74 14 131/74 (93) 92 Nasal Cannula 3 06/09/17 08:00 98.3 67 17 112/68 (83) 91 06/09/17 04:05 96.5 67 18 154/81 (105) 94 06/09/17 00:16 96.0 62 18 109/62 (78) 94 06/08/17 20:45 98.0 86 18 152/79 (103) 94 06/08/17 20:03 87 20 167/85 (112) 96 Nasal Cannula 2.00 06/08/17 16:14 80 15 188/100 (129) 92 Nasal Cannula 2.00 06/08/17 12:30 76 16 140/90 (107) 92 Nasal Cannula 2.00 Physical Exam GENERAL: This is a well-nourished, well-developed patient, in no apparent distress. SKIN: No rashes, ecchymoses or lesions. Cool and dry. HEAD: Atraumatic. Normocephalic. No temporal or scalp tenderness. EYES: Pupils equal round and reactive. Extraocular motions intact. No scleral icterus. No injection or drainage. ENT: Nose without bleeding, purulent drainage or septal hematoma. Throat without erythema, tonsillar hypertrophy or exudate. Uvula midline. Airway patent. NECK: Trachea midline. No JVD or lymphadenopathy. Supple, nontender, no meningeal signs. CARDIOVASCULAR: Regular rate and rhythm without murmurs, gallops, or rubs. RESPIRATORY: Clear to auscultation. Breath sounds equal bilaterally. No wheezes , rales, or rhonchi. GASTROINTESTINAL: Abdomen soft, non-tender, nondistended. No hepato-splenomegaly , or palpable masses. No guarding. MUSCULOSKELETAL: Extremities without clubbing, cyanosis, or edema. . NEUROLOGICAL: Awake and alert. Cranial nerves II through XII intact. Motor and sensory grossly within normal limits. Laboratory Laboratory Tests Test 06/08/17 20:50 06/09/17 04:05 Urine Color LIGHT-YELLOW Urine Turbidity CLEAR Urine pH 6.5 Urine Specific [place] 1.029 Urine Protein TRACE Urine Glucose (UA) NEG Urine Ketones 40 Urine Occult Blood MOD Urine Nitrite NEG Urine Bilirubin NEG Urine Urobilinogen LESS THAN 2.0 Urine Leukocyte Esterase NEG Urine RBC 46 Urine WBC 1 Urine Squamous Epithelial Cells <1 Urine Mucus FEW Microscopic Urinalysis Comment CULT NOT INDICATED Urine Opiates Screen NEG Urine Barbiturates Screen NEG Urine Amphetamines Screen NEG Urine Benzodiazepines Screen NEG Urine Cocaine Screen NEG Urine Cannabinoids Screen NEG White Blood Count 16.5 Red Blood Count 3.75 Hemoglobin 10.2 Hematocrit 31.4 Mean Corpuscular Volume 83.6 Mean Corpuscular Hemoglobin 27.3 Mean Corpuscular Hemoglobin Concent 32.6 Red Cell Distribution Width 15.4 Platelet Count 133 Mean Platelet Volume 7.8 Blood Urea Nitrogen 21 Creatinine 1.14 Random Glucose 117 Calcium Level 8.2 Sodium Level 143 Potassium Level 3.7 Chloride Level 108 Carbon Dioxide Level 25.5 Anion Gap 10 Estimat Glomerular Filtration Rate 62 Result Diagram: 06/09/1740406/09/17404 Imaging Last Impressions Hip and Pelvis X-Ray 06/08/17 0852 Signed Impressions: Service Date/Time: Thursday, June 08, 2017 09:21 - CONCLUSION: Normal evaluation of the left hip. Tamar Rubin MD Head CT 06/08/17 0820 Signed Impressions: Service Date/Time: Thursday, June 08, 2017 09:07 - CONCLUSION: Stable diffuse white matter atrophic changes without evidence of acute abnormality. Focal soft tissue prominence overlying the left frontal bone which may represent an area of contusion. No evidence of fracture.. Tamar Rubin MD Lower Extremity CT 06/08/17 0000 Signed Impressions: Service Date/Time: Thursday, June 08, 2017 12:55 - CONCLUSION: Comminuted nondisplaced intertrochanteric fracture of the left femur. Interval enlargement of a distal abdominal aortic aneurysm which has significantly enlarged as compared to the prior November 2015 exam with current maximum measurement of 6 cm anterior to posterior. Recommend further evaluation with CTA of the abdominal aortic aneurysm when clinically able to evaluate for full extent and need for surgical intervention. These findings and recommendations were discussed with the referring ER physician at 1:21 PM on June 08, 2017. Tamar Rubin MD Femur X-Ray 06/08/17 0000 Signed Impressions: Service Date/Time: Thursday, June 08, 2017 12:28 - CONCLUSION: No evidence of fracture. Tamar Rubin MD Chest X-Ray 06/08/17 0000 Signed Impressions: Service Date/Time: Thursday, June 08, 2017 15:25 - CONCLUSION: 1. Cardiomegaly with mild positive fluid balance. 2. No significant pneumothorax, effusion, or displaced rib fractures. Juan Antonio Sarabia MD Cervical Spine CT 06/08/17 0000 Signed Impressions: Service Date/Time: Thursday, June 08, 2017 09:07 - CONCLUSION: Multilevel degenerative disc changes and uncovertebral joint hypertrophy contributing to multilevel neural foraminal narrowing. No evidence of fracture, dislocation or soft tissue abnormality.. Tamar Rubin MD Aorta CTA 06/08/17 0000 Signed Impressions: Service Date/Time: Thursday, June 08, 2017 14:39 - CONCLUSION: 1. Enlarging ascending thoracic earache aneurysm now measuring 5.9 x 7.0 cm including an apparent large ulcerated plaque at the junction of the thoracic arch which is new since prior exam. No evidence for rupture or leak at this time. 2. Enlarging bilobed suprarenal fusiform aortic aneurysm with suprarenal sac measuring 5.3 x 4.6 cm and infrarenal sac measuring 7.1 x 6.3 cm. No evidence for rupture or leak at this time. 3. Multiple ancillary findings, as above. Juan Antonio Sarabia MD Course Patient is s/p ORIF for his hip fracture. He is stable currently with family at bedside. Assessment and Plan Problem List: (1) AAA (abdominal aortic aneurysm) ICD Codes: I71.4 - Abdominal aortic aneurysm, without rupture Status: Acute (2) Thoracic aortic aneurysm ICD Codes: I71.2 - Thoracic aortic aneurysm, without rupture Assessment and Plan Unfortunate 81 y/o male s/p fall and hip fracture as well as scalp laceration. He has known thoracic and aortic aneurysms. He has been declared not a candidate for surgical intervention. His blood pressure should be managed aggressively, but if he has a leak or rupture from either the AAA or TAA, he would NOT be an operative candidate. Recommend palliative care consultation if needed. The family does not desire any surgical intervention for these conditions as well. Problem Qualifiers (1) Thoracic aortic aneurysm: Qualified Codes: I71.2 - Thoracic aortic aneurysm, without rupture (2) AAA (abdominal aortic aneurysm): Qualified Codes: I71.4 - Abdominal aortic aneurysm, without rupture Ivette Vernon MD Jun 09, 2017 12:01
[2017-06-09] MEDS: ACETAMINOPHEN/HYDROcodone 325 MG/5 MG TAB PO PRN ×2 (12:36→23:33)
--- NOTE | 2017-06-09 14:08 | HHI.PR ---
Subjective Subjective Remarks Resting in the bed Pleasantly confused Talking randomly to simple conversation but occasionally gets agitated and screams out Denies any chest pain Status post orthopedic surgery and intervention to left hip, ORIF, nailing Review of Systems Constitutional Constitutional Remarks , Able to assess ROS due to dementia and confusion Vitals/Results Intake & Output 06/09/17 06/09/17 06/10/17 15:00 23:00 07:00 Intake Total 1325 ml Output Total 270 ml Balance 1055 ml IV Total 1325 ml Output Urine Total 150 ml Estimated Blood Loss 120 ml Vital Signs Vital Signs Date Time Temp Pulse Resp B/P (MAP) Pulse Ox O2 Delivery O2 Flow Rate FiO2 06/09/17 10:45 97.7 82 15 135/58 (83) 97 Nasal Cannula 3 06/09/17 10:30 74 15 112/59 (76) 97 Nasal Cannula 3 06/09/17 10:15 72 17 128/64 (85) 95 Nasal Cannula 3 06/09/17 10:00 71 14 138/71 (93) 93 Nasal Cannula 3 06/09/17 09:52 97.7 74 14 131/74 (93) 92 Nasal Cannula 3 06/09/17 08:00 98.3 67 17 112/68 (83) 91 06/09/17 04:05 96.5 67 18 154/81 (105) 94 06/09/17 00:16 96.0 62 18 109/62 (78) 94 06/08/17 20:45 98.0 86 18 152/79 (103) 94 06/08/17 20:03 87 20 167/85 (112) 96 Nasal Cannula 2.00 06/08/17 16:14 80 15 188/100 (129) 92 Nasal Cannula 2.00 CBC/BMP: 06/09/17 0405 06/09/17 0405 Lab Results Laboratory Tests Test 06/08/17 20:50 06/09/17 04:05 Urine Color LIGHT-YELLOW Urine Turbidity CLEAR Urine pH 6.5 Urine Specific [place] 1.029 Urine Protein TRACE mg/dL Urine Glucose (UA) NEG mg/dL Urine Ketones 40 mg/dL Urine Occult Blood MOD Urine Nitrite NEG Urine Bilirubin NEG Urine Urobilinogen LESS THAN 2.0 MG/DL Urine Leukocyte Esterase NEG Urine RBC 46 /hpf Urine WBC 1 /hpf Urine Squamous Epithelial Cells <1 /hpf Urine Mucus FEW /lpf Microscopic Urinalysis Comment CULT NOT INDICATED Urine Opiates Screen NEG Urine Barbiturates Screen NEG Urine Amphetamines Screen NEG Urine Benzodiazepines Screen NEG Urine Cocaine Screen NEG Urine Cannabinoids Screen NEG White Blood Count 16.5 TH/MM3 Red Blood Count 3.75 MIL/MM3 Hemoglobin 10.2 GM/DL Hematocrit 31.4 % Mean Corpuscular Volume 83.6 FL Mean Corpuscular Hemoglobin 27.3 PG Mean Corpuscular Hemoglobin Concent 32.6 % Red Cell Distribution Width 15.4 % Platelet Count 133 TH/MM3 Mean Platelet Volume 7.8 FL Blood Urea Nitrogen 21 MG/DL Creatinine 1.14 MG/DL Random Glucose 117 MG/DL Calcium Level 8.2 MG/DL Sodium Level 143 MEQ/L Potassium Level 3.7 MEQ/L Chloride Level 108 MEQ/L Carbon Dioxide Level 25.5 MEQ/L Anion Gap 10 MEQ/L Estimat Glomerular Filtration Rate 62 ML/MIN Physical Exam General General Appearance: Pale, Anxious Appearance Remarks Borderline frail Eyes Eye Exam: Pupils Reactive Ears & Nose Ears & Nose Exam: Nasal Mucosa [place] Throat Throat Exam: Oral Mucosa [place] & Moist (pale) Neck Neck Exam: Neck Supple, Trachea Midline Pulmonary Resp Exam: Diminished Breath Sounds Cardiology CV Exam: Regular (heart rate controlled) Gastrointestinal/Abdomen GI Exam: Soft, Non-Tender, Bowel Sounds Present (soft) Musculoskeletal MS Remarks Left hip nailing, ORIF today, dressing clean dry and intact Integumentary Skin Exam: Warm, Dry Extremeties Extremities Exam: Trace Edema (lower extremity left) Neurologic Neuro Remarks Dementia, talkative but not always on the same conversation Psychiatric Psych Exam: Appropriate Responses (anxiety, occasional hollering out) Assessment/Plan Assessment/Plan Fall, accidental at the SNF, with a laceration to the scalp and left hip fracture, afebrile, blood pressure 135/58, blood sugar 117, drug screen negative Scalp laceration Sutured top of his scalp, no active bleeding noted, open to air Fracture, intertrochanteric, left femur Vital signs stable afebrile Labs reviewed mild leukocytosis 16.5, BUN 21 Status post ORIF with nail, dressing clean dry and intact, post op care and pain management per orthopedic team, rehabilitation per protocol AAA (abdominal aortic aneurysm) and thoracic abdominal aneurysm, loud systolic murmur noted, patient denies any chest pain but states he does have occasional shortness of breath Has been evaluated by thoracic surgery, planned for no surgery, palliative care consult done for tomorrow. Patient has pain, and will need to assist patient best wishes for him since he is aneurysm is inoperative and due to his advanced dementia. Dementia Alzheimers Medical management, supportive care, pain management for his comfort status post left hip surgical procedure, resume his home meds SANYA, deydration IV hydration, encourage by mouth hydration, incentive spirometry at bedside encouraged to use and turned cough and deep breathe, monitor for any worsening of BUN, currently 21, currently Hx CKD, this may be his baseline Leukocytosis, probable stress-related, and status post surgical procedure, continue to monitor labs Discussed with patient and nurse in room discussed with Dr. panchal, seen on his behalf Discharge planning within the next couple of days once released by orthopedics, should return to [facility] Jun 09, 2017 14:07
[2017-06-09 15:44] VITALS: O2SAT 96
[2017-06-09 16:00] VITALS: BP 94/57; PULSE 69; RESP 17; TEMP 96.4; O2SAT 94
[2017-06-09] MEDS: AMITRIPTYLINE HCL 10 MG TAB PO SCH (19:59)
[2017-06-09] MEDS: DOCUSATE SODIUM 50 MG/SENNA 8.6 MG TAB PO SCH (19:59)
[2017-06-09] MEDS: METHADONE HCL 10 MG TAB PO SCH (20:04)
[2017-06-09 20:11] VITALS: BP 117/67; PULSE 65; RESP 18; TEMP 97.3; O2SAT 97
[2017-06-10] VITALS (12 sets, daily range): BP systolic 81–109; BP diastolic 48–65; PULSE 62–83; RESP 16–19; TEMP 97–100.2; O2SAT 93–98
[2017-06-10] MEDS: SODIUM CHLOR 0.9% 1000 ML INJ 1,000 ML IV SCH ×2 (05:30→23:01)
[2017-06-10 07:04] LABS: HEMATOCRIT 21.2 % (39.0-51.0); MEAN CELL VOLUME 82.9 FL (80.0-100.0); MEAN CORPUSCULAR HEMOGLOBIN 27.4 PG (27.0-34.0); MEAN CORPUSCULAR HGB CONC 33.1 % (32.0-36.0); PLATELET COUNT 94 TH/MM3 (150-450); RED BLOOD COUNT 2.56 MIL/MM3 (4.50-5.90); RED CELL DISTRIBUTION WIDTH 15.3 % (11.6-17.2); WHITE BLOOD COUNT 11.8 TH/MM3 (4.0-11.0)
[2017-06-10 07:07] LABS: REVIEW FLAG FINAL
[2017-06-10] MEDS: hydrALAZINE HCL 100 MG TAB PO SCH ×2 (09:00→22:55)
[2017-06-10] MEDS: CARVEDILOL 12.5 MG TAB PO SCH ×2 (09:00→22:56)
[2017-06-10] MEDS: ENOXAPARIN SODIUM 40 MG/0.4 ML SYRINGE SQ SCH (09:05)
[2017-06-10] MEDS: MULTIVITAMINS/MINERALS THERAPEUTIC TAB PO SCH (09:05)
[2017-06-10] MEDS: SERTRALINE HCL 100 MG TAB PO SCH (09:06)
[2017-06-10] MEDS: DOCUSATE SODIUM 50 MG/SENNA 8.6 MG TAB PO SCH ×2 (09:06→22:55)
[2017-06-10] MEDS: PANTOPRAZOLE SOD 40 MG DELAYED RELEASE TAB PO SCH (09:06)
[2017-06-10] MEDS: DULoxetine HCl DR 20 MG CAP PO SCH (09:06)
[2017-06-10] MEDS: OXYBUTYNIN CHLORIDE 5 MG TAB PO SCH ×2 (09:06→22:54)
[2017-06-10] MEDS: GABAPENTIN 300 MG CAP PO SCH ×3 (09:06→17:25)
--- NOTE | 2017-06-10 10:05 | MH ---
cc: SHAMIR MENDOZA DATE OF ADMISSION 06/08/2017 PRIMARY CARE PHYSICIAN Bill Simon MD CHIEF COMPLAINT The patient was brought to the hospital after he apparently tripped and fell in the nursing facility. HISTORY OF PRESENT ILLNESS This is a very forgetful 81-year-old male with prior history of Alzheimer's disease, hypertension, coronary artery disease, prior pacemaker, atrial fibrillation, COPD who also was diagnosed with a large thoracic aortic aneurysm. He apparently was evaluated at [facility] approximately a year and a half ago and was not felt to be a candidate for any surgical intervention. He lives in a nursing facility. He apparently tripped and fell this morning falling forward hitting his head and the left side of his hip. There is no history of loss of consciousness. There was no preceding chest pain, palpitations and no history of witnessed seizures. Upon arrival, the patient was noted to be awake and responsive. He has a large laceration over his scalp that required stapling. It was approximately 3 inch long gash. Imaging studies revealed evidence of left hip fracture. recommendation was given by ER physician for the patient to be admitted to the hospital. PAST MEDICAL HISTORY 1. Hypertension. 2. Hyperlipidemia. 3. Coronary artery disease. 4. History of atrial fibrillation 5. History of COPD 6. History of prostate cancer 7. Large abdominal aortic aneurysmal 8. Thoracic aortic aneurysm. 9. Alzheimer's disease. PAST SURGICAL HISTORY 1. Permanent pacemaker implantation 2. Coronary artery bypass grafting 3. Radiation seed implantation. 4. Apparently also has cardiac stent and previous prosthetic aortic valve surgery. SOCIAL HISTORY He has about a pack per day smoking for 45-50 years. He now smokes few cigarettes per day. He denies drinking or drug abuse. He lives in a nursing facility. ALLERGIES NO KNOWN DRUG ALLERGIES MEDICATIONS Home medications 1. Methadone 10 mg at bedtime. 2. Elavil 10 mg at bedtime 3. Hydralazine 10 mg twice daily 3. Cymbalta 20 mg daily. 4. Orrtanna 5 one q6 hour p.r.n. 5. Neurontin 300 mg p.o. t.i.d. 6. Ditropan 5 mg p.o. q. 12-hour. 7. Carvedilol 25 mg b.i.d. 8. Sertraline 100 mg daily. 9. Aspirin 325 mg daily. 10. Protonix 40 mg daily. FAMILY HISTORY Both parents are . Mother in her 60s. She had stroke and of stroke related complications. Dad at 80. REVIEW OF SYSTEMS Somewhat limited as patient is forgetful and poor historian. His head is sore. He degrees loss of vision or double vision. Denies sore throat. Denies dysphagia. He is hungry, denies nausea or vomiting. He has occasional cough without any sputum production. Denies chest pain, dyspnea at rest, orthopnea, paroxysmal nocturnal dyspnea. His left hip is bothering him. He wants in get out of bed. He cannot recall exactly how he fell. He thinks he may have lost his balance or so. There is no history of witnessed seizures. The patient denies melena or bright red blood per rectum. A 13 point review of systems is limited and unremarkable. PHYSICAL EXAMINATION GENERAL: Elderly frail male lying in bed. He is awake and responsive. He is oriented to himself. forgetful, pleasant, follows simple commands. VITAL SIGNS: Blood pressure 133/86, pulse of 60, respiration 15, temperature 97.8, 02 sat 92%. HEENT: Head - the patient has a vertical approximately 3 inch saturation in the top mid of his scalp which is stapled with a scant amount of blood around the staple. No active bleeding. Eyes - extraocular muscles intact, pupils round and reactive. No icterus or significant pallor. ENT - No throat congestion. No oral ulcers. No drainage from ear. NECK: Supple. No JVD. No lymphadenopathy. No bruits. CARDIOVASCULAR: S1, S2 audible. Irregularly irregular rhythm. Soft murmur, no gallop. RESPIRATORY: Some good bilateral air entry. Occasional faint expiratory rhonchi. No crackles. ABDOMEN: Soft, nontender. Positive bowel sounds. No hepatosplenomegaly. EXTREMITIES: Tenderness over the left hip. He guards it and feels pain with movement of left lower extremity. Left foot is warm. Homans' sign is negative. NEUROLOGY: Awake and responsive. He is forgetful. He is oriented to himself, no obvious facial asymmetry. Tongue is midline. He is moving bilateral and right lower extremity. Gait not tested as he in a wheelchair and not able to stand. LABORATORY DATA White count 6.1, hemoglobin 10.4, hematocrit 31.6, platelet count of 144, MCV is 82.8. Sodium 141, potassium 4.3, chloride 107, bicarb 28.3, BUN of 21, creatinine 1.11, glucose 86, calcium 8.6. Total protein 6.6, albumin 3.1, AST 74, AST 17, ALT 11, total bili was 0.4. PT 12.1, INR 1.1. PTT 29.6. IMAGING STUDIES X-ray of the femur was unremarkable. CT scan of the left lower extremity reveals comminuted fracture involving the left intertrochanteric area, fracture is nondisplaced. The study also revealed distal abdominal aortic aneurysm measuring approximately 6 cm anterior to posterior. Chest x-ray was done showed evidence of cardiomegaly, pacemaker lead in place, main sternotomy wire in place, postsurgical features of prior cardiac valve replacement was seen. The lungs are hyperaerated with interstitial prominence, slight elevation of right hemidiaphragm. CT head was performed which showed evidence of cerebral atrophy, no acute bleed, no subdural hematoma. No fracture. There is focal soft tissue swelling over the left frontal bone. X-ray of the left hip unremarkable. CTA of the aorta showed enlarging ascending thoracic arch aneurysm measuring 5.9 x 7 cm including apparent large ulcerative plaque at the junction of the thoracic arch. The patient with large bilobe suprarenal infusiform aortic aneurysm with suppressed renal sac measuring 5.3 x 4.6 cm and an infrarenal renal sac measuring 7.1 x 6.3 cm. There is no evidence of rupture or leak. There was single left renal artery with moderate stenosis and three right Renal arteries noted. Mild stenosis of the celiac origin was seen. SMA and KASSANDRA were found to be patent. IMAGING STUDIES Electrocardiogram was performed which shows paced rhythm. ASSESSMENT 1. Status post accidental fall with left femur intertrochanteric comminuted fracture. 2. Hypertension. 3. Hyperlipidemia 4. History of possible coronary artery with history of bioprosthetic aortic valve replacement 5. History of chronic atrial fibrillation. 6. History of permanent pacemaker implantation 7. History of thoracic aortic aneurysm 8. History of a large bilobe abdominal aortic aneurysm enlarging without any without any evidence of leak. 9. History of dementia. 10. Chronic obstructive pulmonary disease 11. History of prostate cancer status post radiation seed implantation. PLAN The patient will be admitted to the hospital. He will be admitted to the medical-surgical floor with telemetry. We will control his blood pressure. We will put him on a heart healthy diet, n.p.o. after midnight in anticipation of possible surgery. 1. Will give IV fluid. 2. Will control his blood pressure. 3. Will give IV analgesics for pain control, and antiemetics prn . 4. Will give aerosol treatment. 5. I have called and spoken with the patient's son to discuss finding with him in detail. The patient apparently had been to [facility] and was not felt to be a candidate for any additional surgical intervention at that time for his multiple aortic aneurysms. We discussed further treatment options surgical repair of the fracture versus conservative management and palliative care. The patient's son wants to discuss with the rest of the family members before making any decision. 6. Control blood pressure. 7. Continue analgesics for pain control. 8. Will continue beta-zoraida. 9. Give him IV morphine p.r.n. along with IV Zofran. 10. Give him aerosol treatment. 11. Resume home medication. 12. Give Pepcid for GI protection. 13. Use Lovenox for DVT prophylaxis. I have discussed the findings with the patient's family and patient. The patient meets inpatient criteria. Expected length of stay is about four days, possible discharge back to [facility] when stable. Orthopedic consult with is requested . MD ALEXANDRA Berman/ /5:02 PM /9:41 AM MIMI
--- NOTE | 2017-06-10 12:37 | PD.CONS ---
Consult Service Palliative Care . Consult Requested By Manju . Primary Care Physician Bill Simon M.D. . Reason for Consultation a. To assist with evaluation and management of symptoms including: pain; dyspnea; constipation; agitation b. To assist medical decision maker(s) with: better understanding of current medical conditions; weighing benefits/burdens of medical treatment options; making medical treatment decisions. . HPI History of Present Illness Patient has dementia and is a poor historian. History obtained primarily from family and from medical record. 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 He was brought to the [facility] Emergency Department from [facility] via EMS. It was reported that he had tripped, and fell forward hitting his head and the left side of his hip. There was no reported loss of consciousness and no known preceding symptoms. No seizure activity was witnessed. Vital signs in the emergency department are as follows --> temperature 97.8; pulse 76; respiratory rate 16; blood pressure 140/90; pulse oximetry 92% on O2 at 2 L/m via nasal cannula. Physical exam by the emergency supervisor denture department noted the following --> there was a 3 cm scalp laceration which was oozing blood at the time. There were skin tears on the left forearm. There was pain with movement of the left lower extremity. Initial diagnostic testing revealed the following: * CBC showed WBC 6.1; hemoglobin 10.4; platelet count 144; MCV 82.8 * Coagulation profile showed PT 12.1; INR 1.1; PTT 29.6 * Chemistry panel showed BUN 21; creatinine 1.11; glucose 86; calcium 8.6; sodium 141; potassium 4.3; chloride 107; CO2 28.3; anion gap 6; GFR 64 * Liver function studies show total bilirubin 0.4; a ST 17; ALT 11; total protein 6.6; albumin 3.1 * Ethyl alcohol level was less than 3 * CT of the pelvis showed a comminuted nondisplaced intertrochanteric fracture of the left femur * Imaging also revealed enlargement of the patient's distal aortic aneurysm now at 5.9 x 4.6 cm The patient had a scalp laceration stapled in the emergency department. The patient's blood pressure went up to 180/105 and received intravenous hydralazine. Orthopedics was consulted. As the patient had still been ambulatory, a recommendation for surgery was made. The patient underwent open reduction and internal fixation of his left sided intertrochanteric femur fracture on 06/09/17. Cardiothoracic surgery saw the patient in consultation following his hip surgery. The patient had previously been declared not to be a surgical candidate for his abdominal or thoracic aortic aneurysms. This was confirmed during this consultation. It was recommended that his blood pressure should be managed aggressively. A palliative care consult was also recommended. The patient has already been out of bed and has ambulated to the bathroom since his procedure. At the time of my visit he denies pain. Again, he is a very poor historian because of his dementia. There've been no significant behavioral issues so far in the hospital. Function/Cognitive Trajectory The patient has suffered from dementia for many years. Because of his dementia he has been in a facility for approximately 4 years. He has had behavioral problems associated with his dementia and as a result he has been in several different facilities and has required a prolonged psychiatric hospitalization under the [place] Act. Family reports that the behavioral issues have improved substantially. However, he will still often become quite agitated and even combative when hospitalized or otherwise taken out of his more familiar environment. Prior to his fall, according to family, the patient was ambulating short distances with a walker. He was able to feed himself and toilet himself. He would need assistance with showering and dressing. He has had about 3 falls over the last few years though this one has been the worst. When the son brought the patient down from [place] in around 2011, the patient's weight was 142 pounds. His weight went up to the 170s and is now down again into the 160's. Family feels his weight has remained stable. Patient has chronic pain. Per family, this has primarily been in his feet, and doctors have attributed this to arthritis. He has been on chronic opiates for years for this pain. Family states that he will always complain of pain when asked and always request more pain medication. . Review of Systems ROS Limitations: Clinical Condition (patient has Alzheimer's disease with dementia and is unable to provide his own review of systems. Review of systems is taken as best as possible from available family and from the medical record.) Constitutional: COMPLAINS OF: Fatigue, Weight loss, Pain, DENIES: Fever, Weight gain, Dizziness, Change in appetite, Night Sweats Endocrine: DENIES: Polyuria, Polyphagia Eyes: COMPLAINS OF: Vision loss (normally wears glasses and his glasses have been lost) Ears, nose, mouth, throat: COMPLAINS OF: Nasal discharge (family reports chronic sinus issues.), Running Nose, DENIES: Tinnitus, Hearing loss, Throat pain, Hoarseness, Ear Pain, Epistaxis Respiratory: COMPLAINS OF: Sputum production, Shortness of breath, DENIES: Apneas, Cough, Snoring, Hemoptysis Cardiovascular: COMPLAINS OF: Palpitations, Dyspnea on Exertion, Lower Extremity Edema, DENIES: Chest pain, Syncope, Orthopnea, Claudication Gastrointestinal: COMPLAINS OF: Constipation, DENIES: Abdominal pain, Black stools, Bloody stools, Diarrhea, Nausea, Vomiting, Difficulty Swallowing, Anorexia, Dyspepsia or heartburn Genitourinary: DENIES: Urinary frequency, Urinary incontinence, Hematuria, Dysuria Musculoskeletal: COMPLAINS OF: Joint pain, Stiffness, DENIES: Back pain, Neck pain Integumentary: DENIES: Pruritus Hematologic/Lymphatics: COMPLAINS OF: Bruising, History of transfusions, DENIES : Lymphadenopathy, Prolonged bleed w/ proced Immunologic/Allergic: DENIES: Urticaria Neurologic: COMPLAINS OF: Abnormal gait (uses a walker), Tremor, Poor Balance, DENIES: Localized weakness, Seizures Psychiatric: COMPLAINS OF: Confusion, Mood changes, Depression, Agitation, DENIES: Anxiety, Suicidal Ideation Other ROS: * Wears dentures Past Family Social History Coded Allergies: No Known Allergies (Unverified , 06/08/17) Past Medical History * Alzheimer's disease with behavioral challenges * COPD * Coronary artery disease status post bypass surgery * 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 Past Surgical History * Permanent pacemaker implantation 2005 * Coronary artery bypass surgery * Coronary artery stents * Radiation seed implantation for prostate cancer * Bovine prosthetic valve placement 2005 . Reported Medications Prehospitalization medications included the following: Dolophine (Methadone HCl) 10 Mg Tab 5 Mg PO HS Amitriptyline (Amitriptyline HCl) 10 Mg Tab 10 Mg PO HS Hydralazine (Hydralazine HCl) 100 Mg Tab 100 Mg PO BID Duloxetine DR (Duloxetine HCl) 20 Mg Capdr 20 Mg PO DAILY [place] (Hydrocodone-Acetaminophen) 5-325 mg Tab 1 Tab PO Q6H PRN Gabapentin 300 Mg Cap 300 Mg PO TID Ditropan (Oxybutynin Chloride) 5 Mg Tab 5 Mg PO Q12HR Carvedilol 25 Mg Tab 25 Mg PO BID Sertraline (Sertraline HCl) 100 Mg Tab 100 Mg PO DAILY Aspirin 325 Mg Tab 325 Mg PO DAILY Protonix (Pantoprazole Sodium) 40 Mg Tab 40 Mg PO DAILY . Current Medications Medications (Trade) Dose Ordered Sig/Renetta Route Start Time Stop Time Status Last Admin (NS Flush) 2 ml UNSCH PRN IVF 06/08/17 08:30 (Elavil) 10 mg HS PO 06/08/17 21:00 06/09/17 19:59 (Coreg) 25 mg BID PO 06/08/17 21:00 06/09/17 19:58 (Cymbalta Dr) 20 mg DAILY PO 06/09/17 09:00 06/10/17 09:06 (Neurontin) 300 mg TID PO 06/08/17 18:00 06/10/17 09:06 (Apresoline) 100 mg BID PO 06/08/17 21:00 06/08/17 21:56 (Dolophine) 5 mg HS PO 06/08/17 21:00 06/09/17 20:04 (Ditropan) 5 mg Q12HR PO 06/08/17 21:00 06/10/17 09:06 (Protonix) 40 mg DAILY PO 06/09/17 09:00 06/10/17 09:06 (Zoloft) 100 mg DAILY PO 06/09/17 09:00 06/10/17 09:06 Sodium Chloride 1,000 ml @ 84 mls/hr [id number] IV 06/08/17 16:00 06/10/17 05:30 (Morphine Inj) 4 mg Q3H PRN IV PUSH 06/08/17 16:00 06/09/17 19:57 (Zofran Inj) 4 mg Q6HR PRN IV PUSH 06/08/17 16:00 Lactated Ringer's 1,000 ml @ 30 mls/hr Q24H PRN IV 06/08/17 20:30 06/11/17 20:29 Sodium Chloride 500 ml @ 30 mls/hr [id number] PRN IV 06/08/17 20:30 06/11/17 20:29 (Lopressor) 25 mg MIGRATION SPECIALIST PRN PO 06/08/17 20:30 06/11/17 20:29 (Betadine 5% Antisepsis Kit) 1 applic MIGRATION SPECIALIST PRN EACH NARE 06/08/17 20:30 06/11/17 20:29 (Chlorhexidine 2% Cloth) 3 pack MIGRATION SPECIALIST PRN TOPICAL 06/08/17 20:30 06/11/17 20:29 (NovoLIN R INJ) See Protocol Table ... MIGRATION SPECIALIST PRN SQ 06/08/17 20:30 06/11/17 20:29 (NS Flush) 2 ml UNSCH PRN IV FLUSH 06/09/17 10:00 06/10/17 09:05 (Lovenox Inj) 40 mg Q24H SQ 06/10/17 09:00 06/10/17 09:05 Cefazolin Sodium 1000 mg/Sodium Chloride 100 ml @ 200 mls/hr Q8H IV 06/09/17 17:00 06/10/17 16:59 06/10/17 09:07 ([place] 5-325 Mg) 1 tab Q4H PRN PO 06/09/17 10:00 06/09/17 23:33 (Tylenol) 650 mg Q6H PRN PO 06/09/17 10:00 (Theragran M Tab) 1 tab DAILY PO 06/10/17 09:00 06/10/17 09:05 (Benadryl) 25 mg Q6H PRN PO 06/09/17 10:00 06/09/17 14:26 (Natividad-Colace) 1 tab BID PO 06/09/17 21:00 06/10/17 09:06 (Milk Of Magnesia Liq) 30 ml Q12H PRN PO 06/09/17 10:00 (Senokot) 17.2 mg Q12H PRN PO 06/09/17 10:00 (Dulcolax Supp) 10 mg DAILY PRN RECTAL 06/09/17 10:00 (Lactulose Liq) 30 ml DAILY PRN PO 06/09/17 10:00 Family History The patient's father of a traumatic brain injury. The patient's mother of a stroke when in her 60s. There is a daughter with liver cancer.. . Substance Use Tobacco: Patient smoked approximately 1.5 packs per day of cigarettes for 45-50 years. He continues to smoke an occasional cigarette in his facility when he can get his hands on them. Alcohol: No current use and no known history of abuse. Prescription med abuse: Patient has chronic pain and has been a chronic prescription opiate user. No known history of abuse. Illicits: No known history of illicits. . Psychosocial History Patient is originally from [place], [place]. He has been living in [place] since about 2011. The patient completed grade school. He is a [place] having served in the [place] [employer]. 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 The patient was twice. His second of 36 years approximately 6 -7 years ago. The patient has 3 children from his first marriage -- Avelino ( who goes by Elder); Nika; and Etelvina. They all live locally. There is a son by the second named Luis Miguel. The patient has been living in a facility due to his Alzheimer's disease for approximately 4 years. Family reports that he has a "girlfriend" at the facility. Her name is Flores Atwood , and the patient is very close to her. . Spiritual/Cultural Factors Worship and spirituality have been quite important to the patient. He would attend christianity weekly. He identifies himself as [employer]. Family would like him to have a director of community center visits. Living Will: Copy in medical record Health Care Surrogate: Copy in medical record Durable Power of Labor Economics Professor: Copy in medical record Date completed: The patient has a living will and a DURABLE POWER OF SECOND CUTTER for healthcare that are both dated 03/09/2013. . Health Care Surrogate(s): The patient's designated healthcare power of sports attorney's are the patient's son - - Avelino Gooden (goes by "Elder") and the patient's daughter in law ( Litzy Gooden). The document indicates that decision-making can be done by both or by either. . Documented care wishes: The patient has a living will which indicates he would not want life prolonging measures if he had a terminal illness, end-stage condition, or persistent vegetative state. It also states she would not want life prolonging measures if it were felt he could not be returned to a meaningful existence. Advance directives indicate that should the health care Collier of Atty. disagree with what is stated in the living will, that the living will should be honored. . Today's verbally stated goals: Patient is unable to verbally state his own goals because of his dementia. . Family/friends goals: Family is quite clear that in spite of his dementia, the patient was living a life that gave him meaning and purpose in his facility prior to this fall. He has a "girlfriend" there. They feel strongly he would want to fight to try and preserve that life. On the other hand, they know he would not want resuscitative efforts should he have a cardiac or respiratory arrest. . Ethical and Legal Issues Patient is incapacitated to make his own health care decisions. Because he has progressive dementia, he will not regain capacity to make such decisions. . Physical Exam Vital Signs Date Time Temp Pulse Resp B/P (MAP) Pulse Ox O2 Delivery O2 Flow Rate FiO2 06/10/17 08:30 96 Nasal Cannula 3.00 06/10/17 08:00 97.7 62 18 81/48 (59) 98 06/10/17 04:10 97.9 63 18 95/52 (66) 96 06/10/17 00:08 97.0 67 18 90/50 (63) 96 06/09/17 21:04 18 06/09/17 20:11 97.3 65 18 117/67 (84) 97 06/09/17 20:02 18 06/09/17 16:00 96.4 69 17 94/57 (69) 94 06/09/17 15:44 96 Nasal Cannula 3.00 . Exam CONSTITUTIONAL/GENERAL: Patient is sleepy (post physical therapy) but is arousable. He reaches out his hand to shake mine when I introduce myself. He is confused, but verbal. Non-agitate. No distress. . TUBES/LINES/DRAINS: Peripheral IV; robins catheter SKIN: No jaundice, rashes. Stapled scalp wound. New left hip surgical repair wound. Left arm skin tear. Scattered ecchymoses. Skin temperature appropriate. Not diaphoretic. HEAD:Normocephalic. Stapled scalp laceration. EYES: Pupils equal and round and reactive. Extraocular motions intact. No scleral icterus. No injection or drainage. Fundi not examined. ENT: Hearing grossly normal. Nose without bleeding or purulent drainage. Throat without visible erythema, exudates, masses, or lesions. NECK: Trachea midline. Supple, nontender. No palpable thyroid enlargement or nodularity. CARDIOVASCULAR: Regular rate and rhythm without murmurs, gallops, or rubs. Some low blood pressures today. No JVD. Peripheral pulses symmetric. RESPIRATORY/CHEST: Symmetric, unlabored respirations. Intermittent expiratory wheeze. Breath sounds equal bilaterally; diminished at based. GASTROINTESTINAL: Abdomen soft, non-tender, nondistended. No hepato-splenomegaly , or palpable masses. No guarding. Bowel sounds present. GENITOURINARY: Without palpable bladder distension. Robins catheter in place. MUSCULOSKELETAL: Extremities without clubbing, cyanosis, or edema. No joint tenderness or effusion noted. No calf tenderness. No mottling or clubbing. LYMPHATICS: No palpable cervical or supraclavicular adenopathy. NEUROLOGICAL: Easily aroused. Follows simple commands, but disoriented/ confused. Moves all extremities. PSYCHIATRIC: No obvious anxiety/depression. Other than confusion, no apparent hallucinations or other psychotic thought process. . Diagnostic Tests Laboratory Laboratory Tests Test 06/08/17 08:50 06/08/17 20:50 06/09/17 04:05 06/10/17 06:00 White Blood Count 6.1 TH/MM3 (4.0-11.0) 16.5 TH/MM3 (4.0-11.0) 11.8 TH/MM3 (4.0-11.0) Red Blood Count 3.81 MIL/MM3 (4.50-5.90) 3.75 MIL/MM3 (4.50-5.90) 2.56 MIL/MM3 (4.50-5.90) Hemoglobin 10.4 GM/DL (13.0-17.0) 10.2 GM/DL (13.0-17.0) 7.0 GM/DL (13.0-17.0) Hematocrit 31.6 % (39.0-51.0) 31.4 % (39.0-51.0) 21.2 % (39.0-51.0) Mean Corpuscular Volume 82.8 FL (80.0-100.0) 83.6 FL (80.0-100.0) 82.9 FL (80.0-100.0) Mean Corpuscular Hemoglobin 27.3 PG (27.0-34.0) 27.3 PG (27.0-34.0) 27.4 PG (27.0-34.0) Mean Corpuscular Hemoglobin Concent 33.0 % (32.0-36.0) 32.6 % (32.0-36.0) 33.1 % (32.0-36.0) Red Cell Distribution Width 15.5 % (11.6-17.2) 15.4 % (11.6-17.2) 15.3 % (11.6-17.2) Platelet Count 144 TH/MM3 (150-450) 133 TH/MM3 (150-450) 94 TH/MM3 (150-450) Mean Platelet Volume 7.3 FL (7.0-11.0) 7.8 FL (7.0-11.0) 8.2 FL (7.0-11.0) Neutrophils (%) (Auto) 69.6 % (16.0-70.0) Lymphocytes (%) (Auto) 15.6 % (9.0-44.0) Monocytes (%) (Auto) 7.8 % (0.0-8.0) Eosinophils (%) (Auto) 6.6 % (0.0-4.0) Basophils (%) (Auto) 0.4 % (0.0-2.0) Neutrophils # (Auto) 4.2 TH/MM3 (1.8-7.7) Lymphocytes # (Auto) 0.9 TH/MM3 (1.0-4.8) Monocytes # (Auto) 0.5 TH/MM3 (0-0.9) Eosinophils # (Auto) 0.4 TH/MM3 (0-0.4) Basophils # (Auto) 0.0 TH/MM3 (0-0.2) CBC Comment DIFF FINAL Differential Comment Prothrombin Time 12.1 SEC (9.8-11.6) Prothromb Time International Ratio 1.1 RATIO Activated Partial Thromboplast Time 29.6 SEC (24.3-30.1) Blood Urea Nitrogen 21 MG/DL (7-18) 21 MG/DL (7-18) Creatinine 1.11 MG/DL (0.60-1.30) 1.14 MG/DL (0.60-1.30) Random Glucose 86 MG/DL (74-106) 117 MG/DL (74-106) Total Protein 6.6 GM/DL (6.4-8.2) Albumin 3.1 GM/DL (3.4-5.0) Calcium Level 8.6 MG/DL (8.5-10.1) 8.2 MG/DL (8.5-10.1) Alkaline Phosphatase 74 U/L (45-117) Aspartate Amino Transf (AST/SGOT) 17 U/L (15-37) Alanine Aminotransferase (ALT/SGPT) 11 U/L (12-78) Total Bilirubin 0.4 MG/DL (0.2-1.0) Sodium Level 141 MEQ/L (136-145) 143 MEQ/L (136-145) Potassium Level 4.3 MEQ/L (3.5-5.1) 3.7 MEQ/L (3.5-5.1) Chloride Level 107 MEQ/L (98-107) 108 MEQ/L (98-107) Carbon Dioxide Level 28.3 MEQ/L (21.0-32.0) 25.5 MEQ/L (21.0-32.0) Anion Gap 6 MEQ/L (5-15) 10 MEQ/L (5-15) Estimat Glomerular Filtration Rate 64 ML/MIN (>89) 62 ML/MIN (>89) Ethyl Alcohol Level LESS THAN 3 MG/DL (0-5) Urine Color LIGHT-YELLOW (YELLW/STRAW) Urine Turbidity CLEAR (CLEAR) Urine pH 6.5 (5.0-8.5) Urine Specific [place] 1.029 (1.002-1.035) Urine Protein TRACE mg/dL (NEG-TRACE) Urine Glucose (UA) NEG mg/dL (NEG) Urine Ketones 40 mg/dL (NEG) Urine Occult Blood MOD (NEG) Urine Nitrite NEG (NEG) Urine Bilirubin NEG (NEG) Urine Urobilinogen LESS THAN 2.0 MG/DL (LESS Urine Leukocyte Esterase NEG (NEG) Urine RBC 46 /hpf (0-3) Urine WBC 1 /hpf (0-5) Urine Squamous Epithelial Cells <1 /hpf (0-5) Urine Mucus FEW /lpf (OCC) Microscopic Urinalysis Comment CULT NOT INDICATED Urine Opiates Screen NEG (NEG) Urine Barbiturates Screen NEG (NEG) Urine Amphetamines Screen NEG (NEG) Urine Benzodiazepines Screen NEG (NEG) Urine Cocaine Screen NEG (NEG) Urine Cannabinoids Screen NEG (NEG) . Result Diagram: 06/10/17 0600 06/09/17 0405 Imaging Last Impressions Hip X-Ray 06/09/17 0000 Signed Impressions: Service Date/Time: Friday, June 09, 2017 09:14 - CONCLUSION: Status post ORIF of a left intratrochanteric fracture with good anatomic alignment. Tamar Rubin MD Hip and Pelvis X-Ray 06/08/17 0852 Signed Impressions: Service Date/Time: Thursday, June 08, 2017 09:21 - CONCLUSION: Normal evaluation of the left hip. Tamar Rubin MD Head CT 06/08/17 0820 Signed Impressions: Service Date/Time: Thursday, June 08, 2017 09:07 - CONCLUSION: Stable diffuse white matter atrophic changes without evidence of acute abnormality. Focal soft tissue prominence overlying the left frontal bone which may represent an area of contusion. No evidence of fracture.. Tamar Rubin MD Lower Extremity CT 06/08/17 0000 Signed Impressions: Service Date/Time: Thursday, June 08, 2017 12:55 - CONCLUSION: Comminuted nondisplaced intertrochanteric fracture of the left femur. Interval enlargement of a distal abdominal aortic aneurysm which has significantly enlarged as compared to the prior November 2015 exam with current maximum measurement of 6 cm anterior to posterior. Recommend further evaluation with CTA of the abdominal aortic aneurysm when clinically able to evaluate for full extent and need for surgical intervention. These findings and recommendations were discussed with the referring ER physician at 1:21 PM on June 08, 2017. Tamar Rubin MD Femur X-Ray 06/08/17 0000 Signed Impressions: Service Date/Time: Thursday, June 08, 2017 12:28 - CONCLUSION: No evidence of fracture. Tamar Rubin MD Chest X-Ray 06/08/17 0000 Signed Impressions: Service Date/Time: Thursday, June 08, 2017 15:25 - CONCLUSION: 1. Cardiomegaly with mild positive fluid balance. 2. No significant pneumothorax, effusion, or displaced rib fractures. Juan Antonio Sarabia MD Cervical Spine CT 06/08/17 0000 Signed Impressions: Service Date/Time: Thursday, June 08, 2017 09:07 - CONCLUSION: Multilevel degenerative disc changes and uncovertebral joint hypertrophy contributing to multilevel neural foraminal narrowing. No evidence of fracture, dislocation or soft tissue abnormality.. Tamar Rubin MD Aorta CTA 06/08/17 0000 Signed Impressions: Service Date/Time: Thursday, June 08, 2017 14:39 - CONCLUSION: 1. Enlarging ascending thoracic earache aneurysm now measuring 5.9 x 7.0 cm including an apparent large ulcerated plaque at the junction of the thoracic arch which is new since prior exam. No evidence for rupture or leak at this time. 2. Enlarging bilobed suprarenal fusiform aortic aneurysm with suprarenal sac measuring 5.3 x 4.6 cm and infrarenal sac measuring 7.1 x 6.3 cm. No evidence for rupture or leak at this time. 3. Multiple ancillary findings, as above. Juan Antonio Sarabia MD . Procedures * ORIF left hip . Patient/Family Conference Present at Family Conference: Three children -- Avelino (goes by "Elder"); Nika; Etelvina; and Elder's -- Litzy. . Family Conference Time (mins): 50 Family Conference Location: Consult Room Issues Discussed: * Palliative care role, purpose, approach * Additional medical, psychosocial, and spiritual history * Patients general health, functional status, and cognitive changes in the months leading up to the current hospitalization * Family understanding of the current medical problems * Family understanding of prognosis * Patients goals of care as best understood from advance directives and/or conversations and/or values * Current medical treatment options and benefits/burdens of those options * Likely scenarios comparing ongoing aggressive care with a transition to comfort measures only * Questions answered to the best of my ability . Assessment and Plan Disease Oriented Problem List: (1) Fracture, intertrochanteric, left femur (2) AAA (abdominal aortic aneurysm) without rupture (3) Thoracic aortic aneurysm (4) Scalp laceration (5) COPD (chronic obstructive pulmonary disease) (6) History of prostate cancer (7) CAD (coronary artery disease) Symptom Scale: (1) Pain 0-10 Scale: 0 Comment: Patient is a chronic pain patient. Family says his complaints are primarily his feet and in the past they have been told these are arthritic pains. The children state, "He is an addict. He will always tell you he is in pain and will always ask for more opiates if you ask him." The patient now has the additional acute pain of his hip fracture / surgical repair. At time of my visit he denies pain. . (2) Dyspnea 0-10 Scale: Unable to quantify Comment: Patient has known COPD. He still smokes at his facility when he can get access to cigarettes. He is not normally on 02 at the facility, but family reports he is SOB with any exertion. He was hospitalized for an acute pneumonia in December 2016. No visible dyspnea at rest today. . (3) Agitation 0-10 Scale: 0 Comment: Patient has a long history of behavioral problems associated with his dementia. He has been combative and has been discharged from facilities for these behaviors. He had a several month hospitalization in the [facility] for these problems. His behaviors have been much better controlled of late. However, he is is very prone to acute delirium when taken out of his familiar environment. He frequently ends up needing restraints and additional medication when in for an acute hospitalization. Patient is without agitation at time of my visit. . (4) Constipation 0-10 Scale: Unable to quantify Comment: Patient normally has chronic constipation. This is exacerbated by chronic opiate usage. Pertinent Non-Medical Issues Psychosocial: 4 yr resident of [facility]. 3 children live in area. Has a "girlfriend" -- Flores Atwood- at this facility. Spiritual: Worship and spirituality are important to him. Regular churchgoer. [employer]. Family requests director of community center visits. Legal: Health care POA and Living Will entered into [employer] EMR Ethical issues impacting care: None known. . Important Contacts * Avelino Gooden (Mike) (son and one of the health care power of attorneys) H : [phone] C: [phone] * Litzy Gooden (daughter in law and one of the health care power of attorneys ) * Nika (daughter) * Etelvina (daughter) . Prognosis Patient's dementia will make it challenging for him to rehab well, though he was able to ambulate on post-op day 1. He also tends to have acute delirium with combativeness during his hospitalizations which may interfere with recovery. His aortic aneurysms remain a concern -- though there is no sign of leaking or dissection at this time, he remains at risk for such. He also has COPD and significant CAD which ar probably factors in his life expectancy. In general, if he is able to rehab and become ambulatory again, he might have a year or so of life. If he fails rehab, develops another serious pneumonia; has another fall, etc. life expectancy will be much diminished. Given his level of dementia and his living will, anytime family feels that he no longer has a quality of life he would want to fight for, he would be eligibile for hospice services. . Code Status: No Code Plan == Code Status: NO CODE == Decision making: Patient has dementia. He is incapacitated to make his own health care decisions and will not be regaining capacity. Decision making falls to his health care power of attorneys -- His son Amadeo Gooden ( who goes by Elder) ; and his daughter in law Litzy Gooden. The POA document states that decisions can be made by both or either. == Goals of medical treatment: Per the POAs, the patient has a quality of life that he still values and gives him meaning and purpose. They feel he would want to continue to fight for this quality of life (short of resuscitation ). Therefore, family is hoping he can rehabilitate and ultimately return to his [facility] where he has a "girlfriend." == Symptoms: * Patient is a chronic pain patient. Family says his complaints are primarily his feet and in the past they have been told these are arthritic pains. The children state, "He is an addict. He will always tell you he is in pain and will always ask for more opiates if you ask him." The patient now has the additional acute pain of his hip fracture / surgical repair. * Agitation/delirium: Patient has a long history of behavioral problems associated with his dementia. He has been combative and has been discharged from facilities for these behaviors. He had a several month hospitalization in the [facility] unit for these problems. His behaviors have been much better controlled of late. However, he is is very prone to acute delirium when taken out of his familiar environment. He frequently ends up needing restraints and additional medication when in for an acute hospitalization. * Dyspnea: Patient has known COPD. He still smokes at his facility when he can get access to cigarettes. He is not normally on 02 at the facility, but family reports he is SOB with any exertion. * Constipation: Patient normally has chronic constipation. This is exacerbated by chronic opiate usage. == Orders and recommendations * Code status changed to NO CODE per request of the POA 's (though goals remain aggressive short of resuscitation) * Given patient's history of agitated delirium while hospitalized, would medicate early if this begins. Would use haloperidol initially at a low dose - - e.g. 0.5 mg q 8 hours ATC and 1-2 mg q 4 hours prn . * Given history of constipation, would advance the bowel protocol on 06/11/17 if not bowel movement. * Disposition: Family is hoping patient will qualify for [place] and complete rehab here before returning to his [facility]. We discussed the challenges of having successful physical therapy with elderly dementia patients. We also discussed the likelihood of acute agitation / delirium once again interfering with his recovery. * His opiate orders appear adequate at this time -- no further recommendations. * [employer] Supervisor asked to visit patient per family request. == Palliative care will continue to follow to assist with symptom management and to further clarify goals of medical treatment as the clinical course evolves. Time Spent Total Floor Time (mins): 90 (Total time included chart review, patient exam, reading of advanced directives, and above referenced meeting with power of attorneys and other family. ) Face to Face Time (mins): 10 (Face to face time with patient is 10 minutes. This does not include the time spent with family. ) >50% Counseling/Coord of Care: Yes Thank you for the opportunity to participate in the care of Mr. Gooden. Aryan Lopez MD Jun 10, 2017 12:37
--- NOTE | 2017-06-10 14:26 | HHI.PR ---
Subjective Subjective Remarks awake, oriented x 2 pleasant c/o left hip pain no fever BP stable eating ok, feeding self no acute changes overnight Review of Systems Constitutional Constitutional Remarks 12 point ros limited, negative except as noted above Vitals/Results Intake & Output 06/10/17 06/10/17 06/11/17 15:00 23:00 07:00 Intake Total 100 ml Balance 100 ml IV Total 100 ml Vital Signs Vital Signs Date Time Temp Pulse Resp B/P (MAP) Pulse Ox O2 Delivery O2 Flow Rate FiO2 06/10/17 12:00 Room Air 06/10/17 12:00 98.1 66 18 102/57 (72) 98 06/10/17 08:30 96 Nasal Cannula 3.00 06/10/17 08:00 97.7 62 18 81/48 (59) 98 06/10/17 04:10 97.9 63 18 95/52 (66) 96 06/10/17 00:08 97.0 67 18 90/50 (63) 96 06/09/17 21:04 18 06/09/17 20:11 97.3 65 18 117/67 (84) 97 06/09/17 20:02 18 06/09/17 16:00 96.4 69 17 94/57 (69) 94 06/09/17 15:44 96 Nasal Cannula 3.00 CBC/BMP: 06/10/17 0600 06/09/17 0405 Lab Results Laboratory Tests Test 06/10/17 06:00 White Blood Count 11.8 TH/MM3 Red Blood Count 2.56 MIL/MM3 Hemoglobin 7.0 GM/DL Hematocrit 21.2 % Mean Corpuscular Volume 82.9 FL Mean Corpuscular Hemoglobin 27.4 PG Mean Corpuscular Hemoglobin Concent 33.1 % Red Cell Distribution Width 15.3 % Platelet Count 94 TH/MM3 Mean Platelet Volume 8.2 FL Physical Exam General General Appearance: Well Developed, No Acute Distress, Comfortable, Pale Eyes Eye Exam: Pupils Reactive Ears & Nose Ears & Nose Exam: Nasal Mucosa [place] Throat Throat Exam: Oral Mucosa [place] & Moist Neck Neck Exam: Neck Supple, Trachea Midline Pulmonary Resp Exam: Diminished Breath Sounds Cardiology CV Exam: Regular, Good Perfusion Gastrointestinal/Abdomen GI Exam: Soft, Non-Tender, Bowel Sounds Present, Non-Distended Genitourinary Exam: Clear Urine Remarks ROBINS Musculoskeletal MS Remarks left hip dressing D/I Integumentary Skin Exam: Warm, Dry Extremeties Extremities Exam: Pedal Pulses Palpable, Trace Edema (LLE) Neurologic Neuro Exam: Alert, Awake, Speech Clear, Reception Clerk Equal Psychiatric Psych Exam: Appropriate Responses (anxiety, occasional hollering out) VTE Prophylaxis VTE Prophylaxis Device: SCDs VTE Prophylaxis Meds: Lovenox Assessment/Plan Assessment/Plan S/P fall, accidental at the SNF, with a laceration to the scalp and left hip fracture S/P ORIF left hip 06/09 -continue with post op ortho care -pain management -PT -wound care -Post op abx -Bowel regimen -HH 03/30.1, give 2 units PRBC with Lasix Scalp laceration -monitor, no active bleeding, CARL AAA (abdominal aortic aneurysm) and thoracic abdominal aneurysm -appreciate CT input, non surgical candidate. Recommends BP control. Family doesn't want surgery -palliative care following, pastoral care -control BP, actually BP 90s to 100s. Dementia -continue home meds Afib PPM HTN Hyperlipidemia -stable, continue with med management Chronic pain -cont. with pain management COPD,stable -Duonebs PRN Hx Prostate cancer/bladder, stable -continue to monitor Repeat CBC, BMP in am CM for dc planning, SNF placement Leukocytosis, probable stress-related, and status post surgical procedure -WBC trending down, no fever Continue with Lovenox for DVT prophylaxis PT eval DNR status CM for dc planning, poss dc tomorrow DC robins tomorrow Labs in am D/W RN D/W Dr. Tilley D/W pt This patient was seen by myself and Dr. Tilley, this note is written on his behalf. Antionette Jacobson Jun 10, 2017 14:26
[2017-06-10] MEDS ORDERED: FUROSEMIDE 20 MG/2 ML VIAL IV PUSH ONE (14:30)
[2017-06-10] MEDS ORDERED: RESP: ALBUTEROL 2.5 MG/IPRATROPIUM 0.5 MG NEB (PRN) NEB (14:30)
[2017-06-10] MEDS ORDERED: SODIUM CHLOR 0.9% 250 ML INJ 250 ML IV ONE (14:30)
--- NOTE | 2017-06-10 17:01 | PD.ORT.PN ---
Subjective Subjective Remarks Patient comfortable. Pain controlled. Objective Vitals Vital Signs Date Time Temp Pulse Resp B/P (MAP) Pulse Ox O2 Delivery O2 Flow Rate FiO2 06/10/17 12:00 Room Air 06/10/17 12:00 98.1 66 18 102/57 (72) 98 06/10/17 08:30 96 Nasal Cannula 3.00 06/10/17 08:00 97.7 62 18 81/48 (59) 98 06/10/17 04:10 97.9 63 18 95/52 (66) 96 06/10/17 00:08 97.0 67 18 90/50 (63) 96 06/09/17 21:04 18 06/09/17 20:11 97.3 65 18 117/67 (84) 97 06/09/17 20:02 18 I/O 06/09/17 06/09/17 06/09/17 06/10/17 06/10/17 06/10/17 07:00 15:00 23:00 07:00 15:00 23:00 Intake Total 817 ml 1805 ml 240 ml 850 ml 100 ml Output Total 450 ml 270 ml 250 ml 200 ml Balance 367 ml 1535 ml -10 ml 650 ml 100 ml Intake Oral 0 ml 480 ml 240 ml 0 ml IV Total 817 ml 1325 ml 850 ml 100 ml Output Urine Total 450 ml 150 ml 250 ml 200 ml Estimated Blood Loss 120 ml # Voids 100 # Bowel Movements 0 0 0 0 Result Diagram: 06/10/17 0600 06/09/17 0405 Imaging Last 24 hours Impressions Hip and Pelvis X-Ray 06/08/17 0852 Signed Impressions: Service Date/Time: Thursday, June 08, 2017 09:21 - CONCLUSION: Normal evaluation of the left hip. Tamar Rubin MD Head CT 06/08/17 0820 Signed Impressions: Service Date/Time: Thursday, June 08, 2017 09:07 - CONCLUSION: Stable diffuse white matter atrophic changes without evidence of acute abnormality. Focal soft tissue prominence overlying the left frontal bone which may represent an area of contusion. No evidence of fracture.. Tamar Rbuin MD Cervical Spine CT 06/08/17 0000 Signed Impressions: Service Date/Time: Thursday, June 08, 2017 09:07 - CONCLUSION: Multilevel degenerative disc changes and uncovertebral joint hypertrophy contributing to multilevel neural foraminal narrowing. No evidence of fracture, dislocation or soft tissue abnormality.. Tamar Rubin MD Procedures ORIF Left Hip Troch Nail Objective Remarks Left hip dressing C/D/I calves soft negative Dieudonne's NVI Assessment & Plan Problem List: (1) Fracture, intertrochanteric, left femur ICD Codes: S72.142A - Displaced intertrochanteric fracture of left femur, initial encounter for closed fracture Status: Acute Qualifiers: Qualified Codes: S72.145A - Nondisplaced intertrochanteric fracture of left femur, initial encounter for closed fracture Assessment and Plan POD #1 ORIF Left Hip Troch Nail Pain management DVT prophylaxis - Lovenox Physical therapy - weight bearing as tolerated D/C planning - anticipating SNF Monitor Wes Rodriguez Jun 10, 2017 17:01
[2017-06-10] MEDS: MORPHINE SULFATE 4 MG/ML INJ IV PUSH PRN (22:53)
[2017-06-10] MEDS: METHADONE HCL 10 MG TAB PO SCH (22:55)
[2017-06-10] MEDS: AMITRIPTYLINE HCL 10 MG TAB PO SCH (23:07)
[2017-06-11 04:00] VITALS: BP 103/55; PULSE 62; RESP 18; TEMP 99.1; O2SAT 93
--- NOTE | 2017-06-11 07:25 | PD.ORT.PN ---
Subjective Subjective Remarks Patient comfortable. Pain controlled. NAD. Objective Vitals Vital Signs Date Time Temp Pulse Resp B/P (MAP) Pulse Ox O2 Delivery O2 Flow Rate FiO2 06/11/17 04:00 99.1 62 18 103/55 (71) 93 06/11/17 02:29 Room Air 06/10/17 23:42 17 06/10/17 23:08 17 06/10/17 22:05 99.7 80 18 109/65 95 06/10/17 20:14 95 Nasal Cannula 3.00 06/10/17 20:00 100.2 70 18 93/59 (70) 94 06/10/17 18:55 99.0 81 19 95/55 96 06/10/17 18:41 99.2 75 17 100/58 06/10/17 16:00 99.1 79 16 107/59 97 06/10/17 16:00 98.7 83 17 95/55 (68) 95 06/10/17 15:45 98.7 67 16 95/55 93 06/10/17 12:00 Room Air 06/10/17 12:00 98.1 66 18 102/57 (72) 98 06/10/17 08:30 96 Nasal Cannula 3.00 06/10/17 08:00 97.7 62 18 81/48 (59) 98 I/O 06/10/17 06/10/17 06/10/17 06/11/17 06/11/17 06/11/17 07:00 15:00 23:00 07:00 15:00 23:00 Intake Total 850 ml 900 ml 810 ml 240 ml Output Total 200 ml 350 ml 1400 ml Balance 650 ml 550 ml 810 ml -1160 ml Intake Oral 0 ml 800 ml 240 ml IV Total 850 ml 100 ml Packed Cells 800 ml Blood Product IV Normal Saline Flush 10 ml Output Urine Total 200 ml 350 ml 1400 ml # Bowel Movements 0 2 Result Diagram: 06/10/17 0600 06/09/17 0405 Imaging Last 24 hours Impressions Hip and Pelvis X-Ray 06/08/17 0852 Signed Impressions: Service Date/Time: Thursday, June 08, 2017 09:21 - CONCLUSION: Normal evaluation of the left hip. Tamar Rubin MD Head CT 06/08/17 0820 Signed Impressions: Service Date/Time: Thursday, June 08, 2017 09:07 - CONCLUSION: Stable diffuse white matter atrophic changes without evidence of acute abnormality. Focal soft tissue prominence overlying the left frontal bone which may represent an area of contusion. No evidence of fracture.. Tamar Rubin MD Cervical Spine CT 06/08/17 0000 Signed Impressions: Service Date/Time: Thursday, June 08, 2017 09:07 - CONCLUSION: Multilevel degenerative disc changes and uncovertebral joint hypertrophy contributing to multilevel neural foraminal narrowing. No evidence of fracture, dislocation or soft tissue abnormality.. Tamar Rubin MD Procedures ORIF Left Hip Troch Nail Objective Remarks Left hip dressing C/D/I calves soft negative Dieudonne's NVI Assessment & Plan Problem List: (1) Fracture, intertrochanteric, left femur ICD Codes: S72.142A - Displaced intertrochanteric fracture of left femur, initial encounter for closed fracture Status: Acute Qualifiers: Qualified Codes: S72.145A - Nondisplaced intertrochanteric fracture of left femur, initial encounter for closed fracture Assessment and Plan POD #2 ORIF Left Hip Troch Nail Pain management DVT prophylaxis - Lovenox Physical therapy - weight bearing as tolerated Orthopedically stable for discharge. Will need medical clearance. D/C planning - anticipating SNF F/U in [address] Mccormack or [facility] in office Wes Rodriguez Jun 11, 2017 07:25
[2017-06-11 08:00] VITALS: BP 103/65; PULSE 69; RESP 19; TEMP 97.8; O2SAT 93
[2017-06-11 08:25] LABS: HEMATOCRIT 23.5 % (39.0-51.0); MEAN CELL VOLUME 81.2 FL (80.0-100.0); MEAN CORPUSCULAR HEMOGLOBIN 27.6 PG (27.0-34.0); PLATELET COUNT 88 TH/MM3 (150-450); RED BLOOD COUNT 2.89 MIL/MM3 (4.50-5.90); RED CELL DISTRIBUTION WIDTH 15.4 % (11.6-17.2); REVIEW FLAG FINAL; WHITE BLOOD COUNT 11.4 TH/MM3 (4.0-11.0)
[2017-06-11 08:29] LABS: BICARBONATE 26.4 MEQ/L (21.0-32.0); POTASSIUM 3.9 MEQ/L (3.5-5.1)
[2017-06-11] MEDS: DULoxetine HCl DR 20 MG CAP PO SCH (09:00)
[2017-06-11] MEDS: hydrALAZINE HCL 100 MG TAB PO SCH (09:00)
[2017-06-11] MEDS: OXYBUTYNIN CHLORIDE 5 MG TAB PO SCH (09:42)
[2017-06-11] MEDS: CARVEDILOL 12.5 MG TAB PO SCH (09:42)
[2017-06-11] MEDS: ENOXAPARIN SODIUM 40 MG/0.4 ML SYRINGE SQ SCH (09:42)
[2017-06-11] MEDS: PANTOPRAZOLE SOD 40 MG DELAYED RELEASE TAB PO SCH (09:42)
[2017-06-11] MEDS: MULTIVITAMINS/MINERALS THERAPEUTIC TAB PO SCH (09:42)
[2017-06-11] MEDS: DOCUSATE SODIUM 50 MG/SENNA 8.6 MG TAB PO SCH (09:42)
[2017-06-11] MEDS: GABAPENTIN 300 MG CAP PO SCH ×2 (09:42→14:04)
[2017-06-11] MEDS: SERTRALINE HCL 100 MG TAB PO SCH (09:42)
[2017-06-11 09:54] VITALS: O2SAT 95
--- NOTE | 2017-06-11 10:15 | HHI.PR ---
Subjective Subjective Remarks awake, oriented x 2 pleasant c/o left hip pain no fever BP stable Difficult to obtain ROS Review of Systems Constitutional Constitutional Remarks 12 point ros limited, negative except as noted above Vitals/Results Vital Signs Vital Signs Date Time Temp Pulse Resp B/P (MAP) Pulse Ox O2 Delivery O2 Flow Rate FiO2 06/11/17 09:54 95 Nasal Cannula 3.00 06/11/17 08:00 97.8 69 19 103/65 (78) 93 06/11/17 04:00 99.1 62 18 103/55 (71) 93 06/11/17 02:29 Room Air 06/10/17 23:42 17 06/10/17 23:08 17 06/10/17 22:05 99.7 80 18 109/65 95 06/10/17 20:14 95 Nasal Cannula 3.00 06/10/17 20:00 100.2 70 18 93/59 (70) 94 06/10/17 18:55 99.0 81 19 95/55 96 06/10/17 18:41 99.2 75 17 100/58 06/10/17 16:00 99.1 79 16 107/59 97 06/10/17 16:00 98.7 83 17 95/55 (68) 95 06/10/17 15:45 98.7 67 16 95/55 93 06/10/17 12:00 Room Air 06/10/17 12:00 98.1 66 18 102/57 (72) 98 CBC/BMP: 06/11/17 0653 06/11/17 0653 Lab Results Laboratory Tests Test 06/11/17 06:53 White Blood Count 11.4 TH/MM3 Red Blood Count 2.89 MIL/MM3 Hemoglobin 8.0 GM/DL Hematocrit 23.5 % Mean Corpuscular Volume 81.2 FL Mean Corpuscular Hemoglobin 27.6 PG Mean Corpuscular Hemoglobin Concent 34.0 % Red Cell Distribution Width 15.4 % Platelet Count 88 TH/MM3 Mean Platelet Volume 9.1 FL Hematology Comments Blood Urea Nitrogen 35 MG/DL Creatinine 1.22 MG/DL Random Glucose 117 MG/DL Calcium Level 7.7 MG/DL Sodium Level 143 MEQ/L Potassium Level 3.9 MEQ/L Chloride Level 107 MEQ/L Carbon Dioxide Level 26.4 MEQ/L Anion Gap 10 MEQ/L Estimat Glomerular Filtration Rate 57 ML/MIN Physical Exam General General Appearance: Well Developed, No Acute Distress, Comfortable, Pale Eyes Eye Exam: Pupils Reactive Ears & Nose Ears & Nose Exam: Nasal Mucosa [place] Throat Throat Exam: Oral Mucosa [place] & Moist Neck Neck Exam: Neck Supple, Trachea Midline Pulmonary Resp Exam: Diminished Breath Sounds Cardiology CV Exam: Regular, Good Perfusion Gastrointestinal/Abdomen GI Exam: Soft, Non-Tender, Bowel Sounds Present, Non-Distended Genitourinary Exam: Clear Urine Remarks [place] Musculoskeletal MS Remarks left hip dressing D/I Integumentary Skin Exam: Warm, Dry Extremeties Extremities Exam: Pedal Pulses Palpable, Trace Edema (LLE) Neurologic Neuro Exam: Awake, Speech Clear, Electric Locomotive Firer/Fireman Equal Psychiatric Psych Exam: Appropriate Responses (anxiety, occasional hollering out) VTE Prophylaxis VTE Prophylaxis Device: SCDs VTE Prophylaxis Meds: Lovenox Assessment/Plan Assessment/Plan S/P fall, accidental at the SNF, with a laceration to the scalp and left hip fracture S/P ORIF left hip 06/09 -continue with post op ortho care -pain management -PT -wound care -Post op abx -Bowel regimen -Postop anemia HH 03/30.1, 2 units PRBC 06/10. H&H 05/01.5 Scalp laceration -monitor, no active bleeding, CARL AAA (abdominal aortic aneurysm) and thoracic abdominal aneurysm -appreciate CT input, non surgical candidate. Recommends BP control. Family doesn't want surgery -palliative care following, pastoral care -control BP, actually BP 90s to 100s. -Remained stable Dementia -continue home meds Afib PPM HTN Hyperlipidemia -stable, continue with med management Chronic pain -cont. with pain management COPD,stable -Duonebs PRN Hx Prostate cancer/bladder, stable -continue to monitor Leukocytosis, probable stress-related, and status post surgical procedure -WBC trending down, no fever Continue with Lovenox for DVT prophylaxis Continue with PT DNR status CM for dc planning Clear for discharge by orthopedic DC julienne now, monitor for voiding We'll discharge patient to SNF today Follow up with orthopedic 2 weeks Diet heart healthy Activity per orthopedic recommendations Wound care per orders D/W RN D/W Dr. Tilley D/W pt This patient was seen by myself and Dr. Tilley, this note is written on his behalf. Antionette Jacobson Jun 11, 2017 10:15
[2017-06-11] MEDS ORDERED: ENOX40P SQ (10:21)
[2017-06-11] MEDS ORDERED: NORC5TAB PO (10:21)
[2017-06-11] MEDS ORDERED: ASPI325T PO (10:21)
--- NOTE | 2017-06-11 10:21 | HHI.DCPOC ---
Discharge Care Plan Diagnosis: (1) Fracture, intertrochanteric, left femur Your Health Problems Are: Difficulty with ADL Leg Swelling Goals to Promote Your Health * To prevent worsening of your condition and complications * To maintain your health at the optimal level Directions to Meet Your Goals Take your medications as prescribed Follow your dietary instruction Follow activity as directed Keep your appointments as scheduled Take your immunizations and boosters as scheduled If your symptoms worsen call your PCP, if no PCP go to Urgent Care Center or Emergency Room Smoking is Dangerous to Your Health. Avoid second hand smoke Call the 24-hour hour crisis hotline for domestic abuse at Antionette Jacobson. [facility] Jun 11, 2017 10:21
[2017-06-11 12:00] VITALS: BP 89/51; PULSE 60; RESP 19; TEMP 97.8; O2SAT 93
[2017-06-11] MEDS ORDERED: HYDR-3516 PO (13:15)
--- NOTE | 2017-06-11 15:50 | HHI.DS ---
Discharge Summary Admission Date Jun 08, 2017 at 15:09 Discharge Date: Jun 11, 2017 Admitting Diagnosis Left intertrochanteric (1) Fracture, intertrochanteric, left femur ICD Codes: S72.142A - Displaced intertrochanteric fracture of left femur, initial encounter for closed fracture Status: Acute (2) Scalp laceration ICD Codes: S01.01XA - Laceration without foreign body of scalp, initial encounter Status: Acute (3) Thoracic aortic aneurysm ICD Codes: I71.2 - Thoracic aortic aneurysm, without rupture Status: Chronic (4) AAA (abdominal aortic aneurysm) without rupture ICD Codes: I71.4 - Abdominal aortic aneurysm, without rupture Status: Chronic (5) CAD (coronary artery disease) ICD Codes: I25.10 - Coronary artery disease Status: Chronic (6) COPD (chronic obstructive pulmonary disease) ICD Codes: J44.9 - Chronic obstructive pulmonary disease, unspecified Status: Chronic (7) Dementia ICD Codes: F03.90 - Dementia Status: Chronic (8) History of prostate cancer ICD Codes: Z85.46 - Personal history of malignant neoplasm of prostate Status: Chronic (9) Agitation ICD Codes: R45.1 - Restlessness and agitation Status: Acute (10) Hyperlipidemia ICD Codes: E78.5 - Hyperlipidemia Status: Chronic (11) Hypotension ICD Codes: I95.9 - Hypotension Status: Acute (12) Hypertension ICD Codes: I10 - Hypertension Status: Chronic Procedures S/P ORIF left hip 06/09 CBC/BMP: 06/11/17 0653 06/11/17 0653 Significant Findings Laboratory Tests Test 06/08/17 20:50 06/09/17 04:05 06/10/17 06:00 06/11/17 06:53 Urine Ketones 40 mg/dL (NEG) Urine Occult Blood MOD (NEG) Urine RBC 46 /hpf (0-3) Urine Mucus FEW /lpf (OCC) White Blood Count 16.5 TH/MM3 (4.0-11.0) 11.8 TH/MM3 (4.0-11.0) 11.4 TH/MM3 (4.0-11.0) Red Blood Count 3.75 MIL/MM3 (4.50-5.90) 2.56 MIL/MM3 (4.50-5.90) 2.89 MIL/MM3 (4.50-5.90) Hemoglobin 10.2 GM/DL (13.0-17.0) 7.0 GM/DL (13.0-17.0) 8.0 GM/DL (13.0-17.0) Hematocrit 31.4 % (39.0-51.0) 21.2 % (39.0-51.0) 23.5 % (39.0-51.0) Platelet Count 133 TH/MM3 (150-450) 94 TH/MM3 (150-450) 88 TH/MM3 (150-450) Blood Urea Nitrogen 21 MG/DL (7-18) 35 MG/DL (7-18) Random Glucose 117 MG/DL (74-106) 117 MG/DL (74-106) Calcium Level 8.2 MG/DL (8.5-10.1) 7.7 MG/DL (8.5-10.1) Chloride Level 108 MEQ/L (98-107) Estimat Glomerular Filtration Rate 62 ML/MIN (>89) 57 ML/MIN (>89) Imaging Last Impressions Hip X-Ray 06/09/17 0000 Signed Impressions: Service Date/Time: Friday, June 09, 2017 09:14 - CONCLUSION: Status post ORIF of a left intratrochanteric fracture with good anatomic alignment. Tamar Rubin MD Hip and Pelvis X-Ray 06/08/17 0852 Signed Impressions: Service Date/Time: Thursday, June 08, 2017 09:21 - CONCLUSION: Normal evaluation of the left hip. Tamar Rubin MD Head CT 06/08/17 0820 Signed Impressions: Service Date/Time: Thursday, June 08, 2017 09:07 - CONCLUSION: Stable diffuse white matter atrophic changes without evidence of acute abnormality. Focal soft tissue prominence overlying the left frontal bone which may represent an area of contusion. No evidence of fracture.. Tamar Rubin MD Lower Extremity CT 06/08/17 0000 Signed Impressions: Service Date/Time: Thursday, June 08, 2017 12:55 - CONCLUSION: Comminuted nondisplaced intertrochanteric fracture of the left femur. Interval enlargement of a distal abdominal aortic aneurysm which has significantly enlarged as compared to the prior November 2015 exam with current maximum measurement of 6 cm anterior to posterior. Recommend further evaluation with CTA of the abdominal aortic aneurysm when clinically able to evaluate for full extent and need for surgical intervention. These findings and recommendations were discussed with the referring ER physician at 1:21 PM on June 08, 2017. Tamar Rubin MD Femur X-Ray 06/08/17 Signed Impressions: Service Date/Time: Thursday, June 08, 2017 12:28 - CONCLUSION: No evidence of fracture. Tamar Rubin MD Chest X-Ray 06/08/17 Signed Impressions: Service Date/Time: Thursday, June 08, 2017 15:25 - CONCLUSION: 1. Cardiomegaly with mild positive fluid balance. 2. No significant pneumothorax, effusion, or displaced rib fractures. Juan Antonio Sarabia MD Cervical Spine CT 06/08/17 Signed Impressions: Service Date/Time: Thursday, June 08, 2017 09:07 - CONCLUSION: Multilevel degenerative disc changes and uncovertebral joint hypertrophy contributing to multilevel neural foraminal narrowing. No evidence of fracture, dislocation or soft tissue abnormality.. Tamar Rubin MD Aorta CTA 06/08/17 Signed Impressions: Service Date/Time: Thursday, June 08, 2017 14:39 - CONCLUSION: 1. Enlarging ascending thoracic earache aneurysm now measuring 5.9 x 7.0 cm including an apparent large ulcerated plaque at the junction of the thoracic arch which is new since prior exam. No evidence for rupture or leak at this time. 2. Enlarging bilobed suprarenal fusiform aortic aneurysm with suprarenal sac measuring 5.3 x 4.6 cm and infrarenal sac measuring 7.1 x 6.3 cm. No evidence for rupture or leak at this time. 3. Multiple ancillary findings, as above. Juan Antonio Sarabia MD Hospital Course This is a very forgetful 81-year-old male with prior history of Alzheimer's disease, hypertension, coronary artery disease, prior pacemaker, atrial fibrillation, COPD who also was diagnosed with a large thoracic aortic aneurysm. He apparently was evaluated at [facility] approximately a year and a half ago and was not felt to be a candidate for any surgical intervention. He lives in a nursing facility. He apparently tripped and fell in the morning falling forward hitting his head and the left side of his hip. There was no history of loss of consciousness. There was no preceding chest pain, palpitations and no history of witnessed seizures. Upon arrival, the patient was noted to be awake and responsive. He had a large laceration over his scalp that required stapling. It was approximately 3 inch long gash. Imaging studies revealed evidence of left hip fracture. recommendation was given by ER physician for the patient to be admitted to the hospital. Pt. was evaluated in the ED; LABORATORY DATA White count 6.1, hemoglobin 10.4, hematocrit 31.6, platelet count of 144, MCV is 82.8. Sodium 141, potassium 4.3, chloride 107, bicarb 28.3, BUN of 21, creatinine 1.11, glucose 86, calcium 8.6. Total protein 6.6, albumin 3.1, AST 74, AST 17, ALT 11, total bili was 0.4. PT 12.1, INR 1.1. PTT 29.6. IMAGING STUDIES X-ray of the femur was unremarkable. CT scan of the left lower extremity reveals comminuted fracture involving the left intertrochanteric area, fracture is nondisplaced. The study also revealed distal abdominal aortic aneurysm measuring approximately 6 cm anterior to posterior. Chest x-ray was done showed evidence of cardiomegaly, pacemaker lead in place, main sternotomy wire in place, postsurgical features of prior cardiac valve replacement was seen. The lungs are hyperaerated with interstitial prominence, slight elevation of right hemidiaphragm. CT head was performed which showed evidence of cerebral atrophy, no acute bleed, no subdural hematoma. No fracture. There is focal soft tissue swelling over the left frontal bone. X-ray of the left unremarkable. CTA of the aorta showed enlarging ascending thoracic arch aneurysm measuring 5.9 x 7 cm including apparent large ulcerative plaque at the junction of the thoracic arch. The patient with large bilobe suprarenal infusiform aortic aneurysm with suppressed renal sac measuring 5.3 x 4.6 cm and an infrarenal renal sac measuring 7.1 x 6.3 cm. There is no evidence of rupture or leak. There was single left renal artery with moderate stenosis and three right artery noted. Mild stenosis of the celiac origin was seen. SMA and KASSANDRA were found to be patent. IMAGING STUDIES Electrocardiogram was performed which shows paced rhythm. Pt. admitted for: 1. Status post accidental fall with left femur intertrochanteric comminuted fracture. 2. Hypertension. 3. Hyperlipidemia 4. History of possible coronary artery with history of bioprosthetic aortic valve replacement 5. History of chronic atrial fibrillation. 6. History of permanent pacemaker implantation 7. History of thoracic aortic aneurysm 8. History of a large bilobe abdominal aortic aneurysm enlarging without any without any evidence of leak. 9. History of dementia. 10. Chronic obstructive pulmonary disease 11. History of prostate cancer status post radiation seed implantation. During the hospital course, the following took place: Pt. was admitted to the hospital to the medical-surgical floor with telemetry. Kept NPO after midnight in anticipation of possible surgery. IVF given. Ordered IV analgesics for pain control as well as antiemetics. Ordered aerosol treatment Ortho consulted. Attending spoke to patient's son to discuss findings with him in detail. The patient apparently had been to [facility] and was not felt to be a candidate for any additional surgical intervention at this time for his multiple aortic aneurysms. Ortho would be discussing with son approach to repair fracture. Whether attempting to surgically repair the fracture versus conservative management and palliative care. The patient's son wanted to discuss with the rest of the family members before making any decision. Continued home meds as necessary Put on Pepcid for GI protection and Lovenox for DVT prophylaxis. Ortho evaluated, recommended surgery S/P ORIF left hip 06/09 continue with post op ortho care continued pain management Ordered PT wound care Post op abx done Bowel regimen Had Postop anemia HH 03/30.1, 2 units PRBC 06/10. H&H 05/01.5 Scalp laceration -was monitored, no active bleeding, left CARL AAA (abdominal aortic aneurysm) and thoracic abdominal aneurysm -CT surgery consulted. -appreciate CT input, non surgical candidate. Recommended BP control. Family did not want surgery -palliative care followed, requested pastoral care -controlled BP, actually BP 90s to 100s. Dementia -continued home meds Afib PPM HTN Hyperlipidemia -stable, continue with med management -Dropped BP, meds adjusted Chronic pain -cont. with pain management COPD,stable -Duonebs PRN -no SOB, stable sats Hx Prostate cancer/bladder, stable -continue to monitor Urinary retention -inc. urinary retention after Fabian dc -Bladder scan showed increase postvoid residual greater than 300 -Fabian reinserted, recommended to keep in place and to do bladder training at facility Leukocytosis, probable stress-related, and status post surgical procedure -WBC trending down, no fever DNR status CM for dc planning Cleared for discharge by orthopedic CIR evaluated, not likely to tolerate aggressive rehab CM d/w family, agreeable to go to SNF then go back to [facility] Discharged to SNF in stable condition Instructed to: Follow up with orthopedic 2 weeks Diet heart healthy Activity per orthopedic recommendations Wound care per orders Pt Condition on Discharge: Stable Discharge Disposition: Discharge to SNF Discharge Instructions DIET: Follow Instructions for: Heart Healthy Diet Activities you can perform: Weight Bearing as Iveth Follow up Referrals: Orthopedics - 2 Weeks [facility] with Leobardo Mccormack MD New Medications: Enoxaparin Inj (Lovenox Inj) 40 Mg/0.4 Ml Syr 40 MG SQ Q24H for dvt prevention , #10 INJECTION Hydrocodone-Acetaminophen (Hydrocodone-Acetaminophen) 5-325 mg Tab 1 TAB PO Q6HR PRN for PAIN LESS THAN 5 ON SCALE for 10 Days, #40 TAB Changed Medications: Aspirin (Aspirin) 325 Mg Tab 325 MG PO DAILY for cad prevention for 30 Days, #30 TAB 0 Refills (Medication details modified) start after Lovenox completed Continued Medications: Amitriptyline (Amitriptyline) 10 Mg Tab 10 MG PO HS, TAB Carvedilol (Carvedilol) 25 Mg Tab 25 MG PO BID, #60 TAB [address] (Duloxetine DR) 20 Mg Capdr 20 MG PO DAILY, #30 CAP 0 Refills Gabapentin (Gabapentin) 300 Mg Cap 300 MG PO TID, #90 CAP 0 Refills Hydralazine (Hydralazine) 100 Mg Tab 100 MG PO BID for Blood Pressure Management, TAB 0 Refills Take with meals Oxybutynin (Ditropan) 5 Mg Tab 5 MG PO Q12HR for Urinary Symptom Managemen, #60 TAB 0 Refills Pantoprazole (Protonix) 40 Mg Tab 40 MG PO DAILY for Reflux, #30 TAB 0 Refills Sertraline (Sertraline) 100 Mg Tab 100 MG PO DAILY, #30 TAB 0 Refills Discontinued Medications: Methadone (Dolophine) 10 Mg Tab 5 MG PO HS for Pain Management, #3 TAB Antionette Jacobson Jun 11, 2017 15:50
[2017-06-11 16:28] VITALS: BP 98/55; PULSE 65; RESP 18; TEMP 97.1; O2SAT 99
[2017-06-11] MEDS ORDERED: CARVEDILOL 12.5 MG TAB PO SCH (21:00)
[2017-06-11] MEDS ORDERED: hydrALAZINE HCL 25 MG TAB PO SCH (21:00)
== END 2017-06-11 18:17 | DRG 481 ==
LOC: EDBD → NEPC 07:56 → NEDA 15:09 → N06A 20:14
PROVIDERS: ADMIT Specialist; ATTEND Specialist
PROC: 30253N1 (ICD-10-PCS; 2017-06-08)
PROC: 0JQ00ZZ Repair Scalp Subcutaneous Tissue and Fascia, Open Approach (ICD-10-PCS; 2017-06-09)
PROC: 0QS704Z Reposition Left Upper Femur with Internal Fixation Device, Open Approach (ICD-10-PCS; principal; 2017-06-09 07:54)
DX: S72.142A Displaced intertrochanteric fracture of left femur, initial encounter for closed fracture (principal); F02.81 Dementia in other diseases classified elsewhere, unspecified severity, with behavioral disturbance; N17.9 Acute kidney failure, unspecified; I71.2 Thoracic aortic aneurysm, without rupture; I71.6 Thoracoabdominal aortic aneurysm, without rupture; G30.9 Alzheimer's disease, unspecified; S01.01XA Laceration without foreign body of scalp, initial encounter; D64.9 Anemia, unspecified; I12.9 Hypertensive chronic kidney disease with stage 1 through stage 4 chronic kidney disease, or unspecified chronic kidney disease; I48.2 Chronic atrial fibrillation; E78.5 Hyperlipidemia, unspecified; W01.0XXA Fall on same level from slipping, tripping and stumbling without subsequent striking against object, initial encounter; Y92.129 Unspecified place in nursing home as the place of occurrence of the external cause; N18.9 Chronic kidney disease, unspecified; G89.29 Other chronic pain; I25.10 Atherosclerotic heart disease of native coronary artery without angina pectoris; I71.4 Abdominal aortic aneurysm, without rupture; J44.9 Chronic obstructive pulmonary disease, unspecified; M19.90 Unspecified osteoarthritis, unspecified site; S51.812A Laceration without foreign body of left forearm, initial encounter; F17.210 Nicotine dependence, cigarettes, uncomplicated; Z66 Do not resuscitate; Z79.891 Long term (current) use of opiate analgesic; M79.673 Pain in unspecified foot; Z85.46 Personal history of malignant neoplasm of prostate; Z85.51 Personal history of malignant neoplasm of bladder; Z87.01 Personal history of pneumonia (recurrent); Z87.442 Personal history of urinary calculi; Z92.3 Personal history of irradiation; Z95.0 Presence of cardiac pacemaker; Z95.1 Presence of aortocoronary bypass graft; Z95.5 Presence of coronary angioplasty implant and graft; Z95.2 Presence of prosthetic heart valve; Z79.82 Long term (current) use of aspirin
CPT/HCPCS: 12002; 36430; 70450; 71010; 71275; 72125; 73502; 73552; 73700; 74174; 76000; 80048; 80053; 80307; 81001; 85025; 85027; 85610; 85730; 86850; 86900; 86901; 86920; 93005; 94150; 96374; 96376; C1713; J0360; J0690; J1170; J1580; J1650; J1940; J2270; J2370; J3010; J3370; J7030; J7050; J7120; P9016; Q9967

== ENCOUNTER 2017-06-12 19:58 | Observation (INO) | payer MEDICARE, OTHER ==
[~2017-06-12] VITALS: Ht 195.6 cm; Wt 74.9 kg
[~2017-06-12 19:58] MED LIST changes: +AMIT10TA6 PO; -DOLO10TA PO; +DULO1CAP PO; +ENOX40P SQ; -FERR325T PO; -FURO40TA PO; +HYDR-3801 PO; -HYDR10TA23 PO; -LEVA750T PO; -LIPI10TA PO; -LORA10TA PO; -NORC5TAB PO; -PRED20 PO
[2017-06-12 20:29] VITALS: BP 122/59; PULSE 61; RESP 18; TEMP 98.4; O2SAT 93
[2017-06-12] MEDS ORDERED: SODIUM CHLORIDE 0.9% FLUSH 10 ML FLUSH IVF PRN (20:30)
--- NOTE | 2017-06-12 20:38 | PD ---
HPI Chief Complaint: Abnormal Results Time Seen by Provider: 20:09 Travel History International Travel<30 days: No Contact w/Intl Traveler<30days: No Traveled to known affect area: No History of Present Illness HPI Patient is a 78-year-old male sent to the emergency room by group home facility for abnormal blood work. As per group home paperwork, patient's hemoglobin dropped from 6.8-6.4 today. Patient is status post right ORIF of left femur fracture. Patient is pleasantly demented, patient is unable to provide history of present illness this time. Patient with no complaints. PFSH Past Medical History Alzheimer's Disease: Yes Arthritis: Yes Depression: Yes Heart Rhythm Problems: Yes (AFIB) Cancer: Yes (PROSTATE) Cardiac Catheterization: Yes Cardiovascular Problems: Yes (PACEMAKER, valves replaced , CABG, Aortic aneurysms ) High Cholesterol: Yes Chest Pain: No Congestive Heart Failure: No COPD: Yes Dementia: Yes Diminished Hearing: No Endocrine: No Genitourinary: Yes (IMPLANT TO L ARM TO DECREASE TESTOSTERONE LEVELS S/P PROSTATE CA) Hypertension: Yes Immune Disorder: No Kidney Stones: Yes Musculoskeletal: Yes Neurologic: No Psychiatric: Yes Reproductive: No Respiratory: Yes Immunizations Current: Yes Radiation Therapy: Yes (Seed implants ) Past Surgical History Body Medical Devices: PACEMAKER Cardiac Surgery: Yes (VALVE REPLACED 2005, STENTS, PACEMAKER) Coronary Artery Bypass Graft: Yes Genitourinary Surgery: Yes (Radioactive Tx on prostate ) Pacemaker: Yes (left pacemaker ) Other Surgery: Yes (Pacemaker, valves replaced , CABG) Social History Alcohol Use: No Tobacco Use: No Substance Use: Yes (History of oxycodone abuse, last used 2013) Allergies-Medications (Allergen,Severity, Reaction): Coded Allergies: No Known Allergies (Unverified , 06/12/17) Reported Meds & Prescriptions Reported Meds & Active Scripts Active Hydrocodone-Acetaminophen 5-325 mg Tab 1 Tab PO Q6HR PRN 10 Days Lovenox Inj (Enoxaparin Sodium) 40 Mg/0.4 Ml Syr 40 Mg SQ Q24H Aspirin 325 Mg Tab 325 Mg PO DAILY 30 Days start after Lovenox completed Reported Amitriptyline (Amitriptyline HCl) 10 Mg Tab 10 Mg PO HS Hydralazine (Hydralazine HCl) 100 Mg Tab 100 Mg PO BID Take with meals Duloxetine DR (Duloxetine HCl) 20 Mg Capdr 20 Mg PO DAILY Gabapentin 300 Mg Cap 300 Mg PO TID Ditropan (Oxybutynin Chloride) 5 Mg Tab 5 Mg PO Q12HR Carvedilol 25 Mg Tab 25 Mg PO BID Sertraline (Sertraline HCl) 100 Mg Tab 100 Mg PO DAILY Protonix (Pantoprazole Sodium) 40 Mg Tab 40 Mg PO DAILY Review of Systems ROS Limitations: Poor Historian (patient with history of Alzheimer's dementia) General / Constitutional: No: Fever Eyes: No: Visual changes HENT: No: Headaches Cardiovascular: No: Chest Pain or Discomfort Respiratory: No: Shortness of Breath Gastrointestinal: No: Abdominal Pain Genitourinary: No: Dysuria Musculoskeletal: No: Pain Skin: No Rash Neurologic: No: Weakness Psychiatric: No: Depression Endocrine: No: Polydipsia Hematologic/Lymphatic: No: Easy Bruising Physical Exam Narrative GENERAL: No acute distress, presently demented SKIN: Focused skin assessment warm/dry and pale HEAD: Atraumatic. Normocephalic. EYES: Pupils equal and round. No scleral icterus. No injection or drainage. ENT: No nasal bleeding or discharge. Mucous membranes pink and moist. NECK: Trachea midline. No JVD. CARDIOVASCULAR: Regular rate and rhythm. No murmur appreciated. RESPIRATORY: No accessory muscle use. Clear to auscultation. Breath sounds equal bilaterally. GASTROINTESTINAL: Abdomen soft, non-tender, nondistended. Hepatic and splenic margins not palpable. MUSCULOSKELETAL: No obvious deformities. No clubbing. No cyanosis. No edema. NEUROLOGICAL: Awake and alert to person only. No obvious cranial nerve deficits. Motor grossly within normal limits. Normal speech. Data Data Last Documented VS Vital Signs Date Time Temp Pulse Resp B/P (MAP) Pulse Ox O2 Delivery O2 Flow Rate FiO2 06/12/17 20:40 65 18 99 Nasal Cannula 2.00 06/12/17 20:29 98.4 122/59 (80) Orders Orders Basic Metabolic Panel (Bmp) (06/12/17 20:20) Complete Blood Count With Diff (06/12/17 20:20) Prothrombin Time / Inr (Pt) (06/12/17 20:20) Act Partial Throm Time (Ptt) (06/12/17 20:20) Type And Screen (06/12/17 20:20) Iv Access Insert/Monitor (06/12/17 20:20) Ecg Monitoring (06/12/17 20:20) Oxygen Administration (06/12/17 20:20) Sodium Chloride 0.9% Flush (Ns Flush) (06/12/17 20:30) Red Blood Cells (Rbc) (06/12/17 20:51) Blood Product Administration (06/12/17 20:51) Sodium Chlor 0.9% 250 Ml Inj (Ns 250 Ml (06/12/17 21:00) Labs Laboratory Tests Test 06/12/17 20:30 White Blood Count 9.7 TH/MM3 Red Blood Count 2.43 MIL/MM3 Hemoglobin 6.7 GM/DL Hematocrit 20.2 % Mean Corpuscular Volume 83.0 FL Mean Corpuscular Hemoglobin 27.5 PG Mean Corpuscular Hemoglobin Concent 33.1 % Red Cell Distribution Width 15.0 % Platelet Count 130 TH/MM3 Mean Platelet Volume 8.3 FL Neutrophils (%) (Auto) 73.9 % Lymphocytes (%) (Auto) 11.1 % Monocytes (%) (Auto) 12.2 % Eosinophils (%) (Auto) 2.6 % Basophils (%) (Auto) 0.2 % Neutrophils # (Auto) 7.2 TH/MM3 Lymphocytes # (Auto) 1.1 TH/MM3 Monocytes # (Auto) 1.2 TH/MM3 Eosinophils # (Auto) 0.3 TH/MM3 Basophils # (Auto) 0.0 TH/MM3 CBC Comment DIFF FINAL Differential Comment Prothrombin Time 11.6 SEC Prothromb Time International Ratio 1.0 RATIO Activated Partial Thromboplast Time 26.8 SEC Blood Urea Nitrogen 36 MG/DL Creatinine 1.24 MG/DL Random Glucose 116 MG/DL Calcium Level 8.5 MG/DL Sodium Level 144 MEQ/L Potassium Level 4.0 MEQ/L Chloride Level 110 MEQ/L Carbon Dioxide Level 27.8 MEQ/L Anion Gap 6 MEQ/L Estimat Glomerular Filtration Rate 56 ML/MIN [facility] Medical Decision Making Medical Screen Exam Complete: Yes Emergency Medical Condition: Yes Medical Record Reviewed: Yes Interpretation(s) Vital Signs Date Time Temp Pulse Resp B/P (MAP) Pulse Ox O2 Delivery O2 Flow Rate FiO2 06/12/17 20:31 99 Nasal Cannula 2.00 06/12/17 20:29 98.4 61 18 122/59 (01) 93 Differential Diagnosis Differential includes anemia, thoracic aneurysm, GI bleed Narrative Course Patient is a 78 year old male who presents to the ER from [place] facility for evaluation of anemia. As per [place] records, pt's hemoglobin dropped from 6.8 to 6.4. Patient is s/p left ORIF 4 days ago. Patient with no complaints at this time, will obtain blood work and type and screen and monitor patient Vital Signs Date Time Temp Pulse Resp B/P (MAP) Pulse Ox O2 Delivery O2 Flow Rate FiO2 06/12/17 20:40 65 18 99 Nasal Cannula 2.00 06/12/17 20:31 99 Nasal Cannula 2.00 06/12/17 20:29 98.4 61 18 122/59 (80) 93 CBC & BMP Diagram 06/12/17 20:30 Patient's hemoglobin is 6.7, hemoglobin 06/10/17 was 7.0, hemoglobin 06/11/17 was 8.0. Plan to administer 1 until of blood. Patient's vital signs are stable at this time. Patient will require admission to the hospital. Case reviewed with Ion FRANK who accepts pt to service Diagnosis Primary Impression: Anemia Qualified Codes: D64.9 - Anemia, unspecified Additional Impression: Thrombocytopenia Admitting Information Admitting Physician Requests: Observation Melva Quijano DO Jun 12, 2017 20:38
[2017-06-12 20:42] LABS: AUTOMATED NEUTROPHIL # 7.2 TH/MM3 (1.8-7.7); BASOPHIL % 0.2 % (0.0-2.0); EOSINOPHIL # 0.3 TH/MM3 (0-0.4); EOSINOPHIL % 2.6 % (0.0-4.0); LYMPH % 11.1 % (9.0-44.0); LYMPHOCYTE # 1.1 TH/MM3 (1.0-4.8); MEAN CORPUSCULAR HEMOGLOBIN 27.5 PG (27.0-34.0); MEAN CORPUSCULAR HGB CONC 33.1 % (32.0-36.0); MONO % 12.2 % (0.0-8.0); NEUT % 73.9 % (16.0-70.0); PLATELET COUNT 130 TH/MM3 (150-450); RED BLOOD COUNT 2.43 MIL/MM3 (4.50-5.90); WHITE BLOOD COUNT 9.7 TH/MM3 (4.0-11.0)
[2017-06-12 20:44] LABS: HEMO FLAGS DIFF FINAL
[2017-06-12 20:47] LABS: HEMATOCRIT 20.2 % (39.0-51.0)
[2017-06-12 20:54] LABS: BICARBONATE 27.8 MEQ/L (21.0-32.0)
[2017-06-12] MEDS ORDERED: SODIUM CHLOR 0.9% 250 ML INJ 250 ML IV ONE (21:00)
[2017-06-12 21:01] LABS: APTT (PATIENT) 26.8 SEC (24.3-30.1); PROTHROMBIN TIME - PATIENT 11.6 SEC (9.8-11.6)
[2017-06-12 22:11] VITALS: BP 125/58; PULSE 69; RESP 16; TEMP 98.2; O2SAT 99
[2017-06-12 22:21] VITALS: BP 120/57; PULSE 63; RESP 18; TEMP 98.4; O2SAT 100
[2017-06-12 22:35] VITALS: BP 133/63; PULSE 72; RESP 18; O2SAT 100
[2017-06-12] MEDS ORDERED: NALOXONE HCL 0.4 MG/ML AMP IV PUSH PRN (22:45)
[2017-06-12] MEDS ORDERED: SODIUM CHLORIDE 0.9% FLUSH 10 ML FLUSH IV FLUSH PRN (22:45)
[2017-06-12] MEDS ORDERED: MAGNESIUM HYDROXIDE SUSP 30 ML CUP PO PRN (22:45)
[2017-06-12] MEDS ORDERED: ONDANSETRON HCL 4 MG/2 ML VIAL IVP PRN (22:45)
[2017-06-12] MEDS ORDERED: SENNOSIDES 8.6 MG TAB PO PRN (22:45)
[2017-06-12] MEDS ORDERED: BISACODYL 10 MG SUPP RECTAL PRN (22:45)
[2017-06-12] MEDS ORDERED: LACTULOSE SYRUP 20 GM/30 ML CUP PO PRN (22:45)
[2017-06-12 23:00] VITALS: BP 124/60; PULSE 64; RESP 18; TEMP 98.2; O2SAT 99
[2017-06-12 23:01] VITALS: O2SAT 99
[2017-06-12] MEDS ORDERED: FAMOTIDINE 20 MG TAB PO SCH (23:15)
[2017-06-13] VITALS (11 sets, daily range): BP systolic 103–137; BP diastolic 53–76; PULSE 62–71; RESP 16–18; TEMP 95.8–98.4; O2SAT 95–99
--- NOTE | 2017-06-13 | MH ---
cc: SHAMIR TILLEY DATE OF ADMISSION: 06/12/2017 CHIEF COMPLAINT: Anemia. HISTORY OF PRESENT ILLNESS: This is a 78 year-old male with dementia who resides at a local year-old male with emergency room with a local senior care facility. The patient apparently sustained a fall on 06/08/17 and had a fractured left femur. The patient underwent surgery. He tolerated the surgery well. He was started on Lovenox for DVT prophylaxis and he received two units of packed red blood cells on 06/10/17 for anemia. He was released to the senior care yesterday. Routine labs were done and his hemoglobin was around 6.4, thus he was sent back to the hospital. The patient has not complained of chest pain or shortness of breath. He has no pain in the leg except when he tries to move and has no nausea or vomiting. He thinks he may have seen some blood with his stool, otherwise he has no complaints. MEDICATIONS ON ADMISSION: Please see chart. ALLERGIES: NONE. PAST MEDICAL HISTORY: 1. Hypertension. 2. Hyperlipidemia. 3. Coronary artery disease. 4. Atrial fibrillation. 5. COPD. 6. Prostate cancer. 7. Thoracic aortic aneurysm. 8. Alzheimer's disease. PAST SURGICAL HISTORY: 1. Permanent pacemaker. 2. Coronary artery bypass graft. 3. Radiation seed implants for the prostate. 4. Cardiac stents. 5. Prostatic aortic valve. SOCIAL HISTORY: The patient has over 50 pack-year smoking history. He states he still smokes a few cigarettes a day. No alcohol or drug abuse. He lives in a nursing facility at this time. FAMILY HISTORY: Mother in her 60s from stroke complications. Father at 80. REVIEW OF SYSTEMS: The patient is a poor historian because of the Alzheimer's disease. He does not know his age. He denies any other specific changes in his overall health, for 10 point review of systems. PHYSICAL EXAMINATION: VITAL SIGNS: The patient is afebrile. Heart rate 64, respiratory rate 18, blood pressure 124/60. O2 sat is 99% on two liters. GENERAL: This is a 78 year-old male, resting comfortably in bed. He is in no distress. HEENT: Mucous membranes are moist. There is no jaundice. NECK: Supple. No JVD. No bruits. CARDIOVASCULAR: Heart is irregular. There is a holosystolic murmur heard. RESPIRATORY: No distress. No accessory muscle use. LUNGS: Clear. GASTROINTESTINAL: Bowel sounds are present. No point tenderness, guarding or rebound. GENITOURINARY: No suprapubic tenderness. No CVA tenderness. MUSCULOSKELETAL: Swelling around the incision sites, on the left lateral femur. The area is not erythematous. There is no obvious drainage (the actual incisions are bandaged, this was not removed). The area is tender appropriately. EXTREMITIES: Bilateral lower extremities without edema. Homans' sign is negative. Strength appears symmetrical with dorsi and plantar flexion. NEUROLOGIC: The patient is awake, alert, generally oriented. He believes his age to be 82. He is actually 78. He is able to tell me the month but not the year or the day. He follows basic commands. He has no facial asymmetry. Tongue is midline. Nuclear Medicine Technician is 5/5 and equal. INVESTIGATIONS: White count 5.7, hemoglobin 6.7, hematocrit 20.2, platelet count 130. INR is 1. Sodium 144, potassium 4, BUN 36, creatinine 1.24. Glucose 116. IMPRESSION: 1. Anemia, likely postoperative. Possible GI bleed. 2. Dementia. 3. Recent fall, left femur fracture, status post surgery. 4. Thrombocytopenia, mild. 5. Chronic kidney disease, apparently stage III. 6. History of A-fib. 7. History of coronary artery disease. 8. History of pacemaker. 9. History of COPD. DISCUSSION: The patient is being placed on observation status to Dr. Tilley's service. He has been ordered one unit of packed red blood cells to the emergency room. We will check further labs including iron studies, B12 and folate. Will check a stool for blood. Will continue DVT prophylaxis if the stool is negative for blood, will place him on GI prophylaxis. Patient's home medications will be resumed as indicated. Labs will be monitored. Further recommendations will be made as his case progresses. Anticipated length of stay is less than two days. Anticipated discharge is back to the senior care facility. Dictated by: Lonnie Hearn PA-C MD ALEXANDRA Berman/PATRICIO /11:05 PM /11:42 PM
[2017-06-13 00:08] LABS: FERRITIN 162 NG/ML (26-388); LDH SERUM 193 U/L (87-241); TRANSFERRIN IRON PROFILE 134 MG/DL (200-360)
[2017-06-13] MEDS ORDERED: ACETAMINOPHEN/HYDROcodone 325 MG/5 MG TAB PO ONE (04:30)
[2017-06-13 07:30] LABS: AUTOMATED NEUTROPHIL # 6.6 TH/MM3 (1.8-7.7); BASOPHIL % 0.2 % (0.0-2.0); EOSINOPHIL # 0.2 TH/MM3 (0-0.4); EOSINOPHIL % 2.8 % (0.0-4.0); HEMATOCRIT 21.4 % (39.0-51.0); HEMO FLAGS DIFF FINAL; LYMPH % 11.4 % (9.0-44.0); MEAN CELL VOLUME 83.5 FL (80.0-100.0); MEAN CORPUSCULAR HEMOGLOBIN 28.5 PG (27.0-34.0); MEAN CORPUSCULAR HGB CONC 34.1 % (32.0-36.0); MONO % 12.2 % (0.0-8.0); NEUT % 73.4 % (16.0-70.0); PLATELET COUNT 122 TH/MM3 (150-450); RED BLOOD COUNT 2.56 MIL/MM3 (4.50-5.90); RED CELL DISTRIBUTION WIDTH 14.9 % (11.6-17.2)
--- NOTE | 2017-06-13 08:54 | HHI.PR ---
Subjective Subjective Remarks awake, oriented to self demented calm at this time denies pain when asked no abd. pain unable to obtain ROS Review of Systems Constitutional Constitutional Remarks unable to obtain ROS Vitals/Results Vital Signs Vital Signs Date Time Temp Pulse Resp B/P (MAP) Pulse Ox O2 Delivery O2 Flow Rate FiO2 06/13/17 06:05 66 16 132/62 (85) 98 06/13/17 06:04 18 06/13/17 03:48 64 18 121/67 (85) 97 06/13/17 01:07 98.4 62 18 125/60 98 06/13/17 00:00 68 18 126/73 (90) 99 Nasal Cannula 2.00 06/12/17 23:01 99 Nasal Cannula 2.00 06/12/17 23:00 98.2 64 18 124/60 99 06/12/17 22:35 72 18 133/63 100 06/12/17 22:21 98.4 63 18 120/57 100 06/12/17 22:11 98.2 69 16 125/58 99 06/12/17 20:40 65 18 99 Nasal Cannula 2.00 06/12/17 20:31 99 Nasal Cannula 2.00 06/12/17 20:29 98.4 61 18 122/59 (80) 93 CBC/BMP: 06/13/17 0530 06/12/17 2030 Lab Results Laboratory Tests Test 06/12/17 20:30 06/13/17 05:30 White Blood Count 9.7 TH/MM3 9.0 TH/MM3 Red Blood Count 2.43 MIL/MM3 2.56 MIL/MM3 Hemoglobin 6.7 GM/DL 7.3 GM/DL Hematocrit 20.2 % 21.4 % Mean Corpuscular Volume 83.0 FL 83.5 FL Mean Corpuscular Hemoglobin 27.5 PG 28.5 PG Mean Corpuscular Hemoglobin Concent 33.1 % 34.1 % Red Cell Distribution Width 15.0 % 14.9 % Platelet Count 130 TH/MM3 122 TH/MM3 Mean Platelet Volume 8.3 FL 8.6 FL Neutrophils (%) (Auto) 73.9 % 73.4 % Lymphocytes (%) (Auto) 11.1 % 11.4 % Monocytes (%) (Auto) 12.2 % 12.2 % Eosinophils (%) (Auto) 2.6 % 2.8 % Basophils (%) (Auto) 0.2 % 0.2 % Neutrophils # (Auto) 7.2 TH/MM3 6.6 TH/MM3 Lymphocytes # (Auto) 1.1 TH/MM3 1.0 TH/MM3 Monocytes # (Auto) 1.2 TH/MM3 1.1 TH/MM3 Eosinophils # (Auto) 0.3 TH/MM3 0.2 TH/MM3 Basophils # (Auto) 0.0 TH/MM3 0.0 TH/MM3 CBC Comment DIFF FINAL DIFF FINAL Differential Comment Prothrombin Time 11.6 SEC Prothromb Time International Ratio 1.0 RATIO Activated Partial Thromboplast Time 26.8 SEC Blood Urea Nitrogen 36 MG/DL Creatinine 1.24 MG/DL Random Glucose 116 MG/DL Calcium Level 8.5 MG/DL Sodium Level 144 MEQ/L Potassium Level 4.0 MEQ/L Chloride Level 110 MEQ/L Carbon Dioxide Level 27.8 MEQ/L Anion Gap 6 MEQ/L Estimat Glomerular Filtration Rate 56 ML/MIN Iron Level 11 MCG/DL Total Iron Binding Capacity 188 MCG/DL Percent Iron Saturation 5.9 % Ferritin 162 NG/ML Lactate Dehydrogenase 193 U/L Vitamin B12 Level 338 PG/ML Folate 15.9 NG/ML Physical Exam General General Appearance: Well Developed, No Acute Distress, Comfortable, Pale Eyes Eye Exam: Pupils Equal, Pupils Reactive Ears & Nose Ears & Nose Exam: Nasal Mucosa [place] Th[place] Throat Exam: Oral Mucosa [place] & Moist Neck Neck Exam: Neck Supple, Trachea Midline Pulmonary Resp Exam: Breath Sounds Equal Cardiology CV Exam: Irregular, Pacemaker Gastrointestinal/Abdomen GI Exam: Soft, Non-Tender, Bowel Sounds Present, Non-Distended Musculoskeletal MS Remarks Left hip incision Integumentary Skin Exam: Warm, Dry Extremeties Extremities Exam: Pedal Pulses Palpable, Trace Edema Neurologic Neuro Exam: Alert, Awake, Oriented, Speech Clear, Moving All Extremities, No Focal Deficits VTE Prophylaxis VTE Prophylaxis Meds: Lovenox PUD Prophylasis PUD Prophylaxis: Protonix Assessment/Plan Problem List: (1) Anemia ICD Codes: D64.9 - Anemia, unspecified Status: Acute (2) AAA (abdominal aortic aneurysm) without rupture ICD Codes: I71.4 - Abdominal aortic aneurysm, without rupture Status: Chronic (3) Hypertension ICD Codes: I10 - Hypertension Status: Chronic (4) History of prostate cancer ICD Codes: Z85.46 - Personal history of malignant neoplasm of prostate Status: Chronic (5) Thoracic aortic aneurysm ICD Codes: I71.2 - Thoracic aortic aneurysm, without rupture Status: Chronic (6) Hyperlipidemia ICD Codes: E78.5 - Hyperlipidemia Status: Chronic (7) Dementia ICD Codes: F03.90 - Dementia Status: Chronic (8) CAD (coronary artery disease) ICD Codes: I25.10 - Coronary artery disease Status: Chronic (9) COPD (chronic obstructive pulmonary disease) ICD Codes: J44.9 - Chronic obstructive pulmonary disease, unspecified Status: Chronic (10) Recent fall, left femur fracture, status post surgery (11) History of atrial fibrillation ICD Codes: Z86.79 - Personal history of other diseases of the circulatory system (12) CKD (chronic kidney disease) stage 3, GFR 30-59 ml/min ICD Codes: N18.3 - Chronic kidney disease, stage 3 (moderate) Status: Acute Assessment/Plan S/P fall, accidental at the SNF, with a laceration to the scalp and left hip fracture, had ORIF left hip 06/09. Was brought back to ED with anemia, Hgb 6.7 Anemia, likely post op. Had recent ORIF left hip -has received 1 unit PRBC, Hgb 7.3 -will given one more unit -repeat CBC in am -iron studies noted, low iron stores. Start PO Iron -stool OB pending S/P fall, accidental at the SNF, with a laceration to the scalp and left hip fracture, had ORIF left hip 06/09 -consult PT for evaluation -order appropriate pain management -wound care -Scalp laceration stable, no bleeding, CARL AAA (abdominal aortic aneurysm) and thoracic abdominal aneurysm -evaluated by cardiothoracic surgery during recent admission. Recommends no surgery, advance age, no appropriate due to comorbidities, advanced age. Recommended BP control. Family did not want surgery -BP stable, resume meds Dementia -continue home meds Afib PPM HTN Hyperlipidemia -stable, continue with med management Chronic pain -cont. with pain management COPD,stable -Duonebs PRN Hx Prostate cancer/bladder, stable -continue to monitor Continue with Lovenox for DVT prophylaxis Continue with PT DNR status CM for dc planning, possible discharge to SNF tomorrow Labs in am D/W RN D/W Dr. Tilley D/W pt This patient was seen by myself and Dr. Tilley, this note is written on his behalf. Problem Qualifiers (1) Anemia: Qualified Codes: D64.9 - Anemia, unspecified (2) Hyperlipidemia: Qualified Codes: E78.5 - Hyperlipidemia, unspecified (3) Dementia: (4) CAD (coronary artery disease): Qualified Codes: I25.10 - Atherosclerotic heart disease of [place] coronary artery without angina pectoris (5) COPD (chronic obstructive pulmonary disease): Qualified Codes: J44.9 - Chronic obstructive pulmonary disease, unspecified Antionette Jacobson Jun 13, 2017 08:54
[2017-06-13] MEDS ORDERED: ENOXAPARIN SODIUM 40 MG/0.4 ML SYRINGE SQ SCH (09:00)
[2017-06-13] MEDS ORDERED: SODIUM CHLOR 0.9% 250 ML INJ 250 ML IV ONE (09:15)
[2017-06-13] MEDS: CARVEDILOL 12.5 MG TAB PO SCH ×2 (11:35→22:55)
[2017-06-13] MEDS: SERTRALINE HCL 100 MG TAB PO SCH (11:35)
[2017-06-13] MEDS: hydrALAZINE HCL 100 MG TAB PO SCH ×2 (11:36→22:54)
[2017-06-13] MEDS: ENOXAPARIN SODIUM 40 MG/0.4 ML SYRINGE SQ SCH (11:36)
[2017-06-13] MEDS: PANTOPRAZOLE SOD 40 MG DELAYED RELEASE TAB PO SCH (11:36)
[2017-06-13] MEDS: DULoxetine HCl DR 20 MG CAP PO SCH (11:36)
[2017-06-13] MEDS: GABAPENTIN 300 MG CAP PO SCH ×4 (11:37→18:14)
[2017-06-13] MEDS: OXYBUTYNIN CHLORIDE 5 MG TAB PO SCH ×2 (11:37→22:55)
[2017-06-13] MEDS: SODIUM CHLORIDE 0.9% FLUSH 10 ML FLUSH IV FLUSH SCH ×2 (11:38→22:55)
[2017-06-13] MEDS: FERROUS FUMARATE 325 MG TAB (106 MG ELEMENTAL IRON) PO SCH ×2 (11:47→22:55)
[2017-06-13] MEDS ORDERED: RESP: ALBUTEROL 2.5 MG/IPRATROPIUM 0.5 MG NEB (PRN) NEB (16:00)
[2017-06-13] MEDS ORDERED: AMITRIPTYLINE HCL 10 MG TAB PO SCH (21:00)
[2017-06-14] VITALS: BP 130/69; PULSE 62; RESP 17; TEMP 98; O2SAT 97
[2017-06-14] MEDS: ACETAMINOPHEN 325 MG TAB PO PRN ×2 (05:33→12:15)
[2017-06-14 07:02] LABS: HEMATOCRIT 24.3 % (39.0-51.0); MEAN CELL VOLUME 84.2 FL (80.0-100.0); MEAN CORPUSCULAR HEMOGLOBIN 28.9 PG (27.0-34.0); MEAN CORPUSCULAR HGB CONC 34.4 % (32.0-36.0); PLATELET COUNT 153 TH/MM3 (150-450); RED BLOOD COUNT 2.89 MIL/MM3 (4.50-5.90); RED CELL DISTRIBUTION WIDTH 15.1 % (11.6-17.2); REVIEW FLAG FINAL; WHITE BLOOD COUNT 8.4 TH/MM3 (4.0-11.0)
[2017-06-14 07:12] LABS: POTASSIUM 3.7 MEQ/L (3.5-5.1)
[2017-06-14 08:00] VITALS: BP 98/56; PULSE 65; RESP 18; TEMP 97.1; O2SAT 97
[2017-06-14] MEDS ORDERED: HYDR-3516 PO (08:12)
--- NOTE | 2017-06-14 08:12 | HHI.DCPOC ---
Discharge Care Plan Diagnosis: (1) Anemia Your Health Problems Are: Chest Pain Shortness of Breath Goals to Promote Your Health * To prevent worsening of your condition and complications * To maintain your health at the optimal level Directions to Meet Your Goals Take your medications as prescribed Follow your dietary instruction Follow activity as directed Keep your appointments as scheduled Take your immunizations and boosters as scheduled If your symptoms worsen call your PCP, if no PCP go to Urgent Care Center or Emergency Room Smoking is Dangerous to Your Health. Avoid second hand smoke Call the 24-hour hour crisis hotline for domestic abuse at Antionette Jacobson Jun 14, 2017 08:12
[2017-06-14] MEDS: SERTRALINE HCL 100 MG TAB PO SCH (08:22)
[2017-06-14] MEDS: OXYBUTYNIN CHLORIDE 5 MG TAB PO SCH (08:22)
[2017-06-14] MEDS: DULoxetine HCl DR 20 MG CAP PO SCH (08:22)
[2017-06-14] MEDS: hydrALAZINE HCL 100 MG TAB PO SCH (08:22)
[2017-06-14] MEDS: GABAPENTIN 300 MG CAP PO SCH ×2 (08:22→12:15)
[2017-06-14] MEDS: FERROUS FUMARATE 325 MG TAB (106 MG ELEMENTAL IRON) PO SCH (08:22)
[2017-06-14] MEDS: ENOXAPARIN SODIUM 40 MG/0.4 ML SYRINGE SQ SCH (08:22)
[2017-06-14] MEDS: PANTOPRAZOLE SOD 40 MG DELAYED RELEASE TAB PO SCH (08:22)
--- NOTE | 2017-06-14 10:12 | HHI.PR ---
Subjective Subjective Remarks awake, oriented to self and place pleasant demented has no pain no abd. pain ROS limited Review of Systems Constitutional Constitutional Remarks unable to obtain ROS Vitals/Results Vital Signs Vital Signs Date Time Temp Pulse Resp B/P (MAP) Pulse Ox O2 Delivery O2 Flow Rate FiO2 06/14/17 00:00 98.0 62 17 130/69 (89) 97 06/13/17 20:30 97.2 66 18 103/53 (70) 98 06/13/17 18:20 95.8 63 18 126/65 (85) 95 06/13/17 18:00 97 21 06/13/17 12:43 97.8 67 18 117/67 97 06/13/17 12:41 97.8 67 18 117/67 97 06/13/17 12:17 97.6 66 18 137/76 CBC/BMP: 06/14/17 0514 06/14/17 0544 Lab Results Laboratory Tests Test 06/14/17 05:14 06/14/17 05:44 White Blood Count 8.4 TH/MM3 Red Blood Count 2.89 MIL/MM3 Hemoglobin 8.4 GM/DL Hematocrit 24.3 % Mean Corpuscular Volume 84.2 FL Mean Corpuscular Hemoglobin 28.9 PG Mean Corpuscular Hemoglobin Concent 34.4 % Red Cell Distribution Width 15.1 % Platelet Count 153 TH/MM3 Mean Platelet Volume 8.4 FL Blood Urea Nitrogen 31 MG/DL Creatinine 0.98 MG/DL Random Glucose 105 MG/DL Calcium Level 8.4 MG/DL Sodium Level 143 MEQ/L Potassium Level 3.7 MEQ/L Chloride Level 109 MEQ/L Carbon Dioxide Level 29.0 MEQ/L Anion Gap 5 MEQ/L Estimat Glomerular Filtration Rate 74 ML/MIN Physical Exam General General Appearance: Well Developed, No Acute Distress, Comfortable, Pale Eyes Eye Exam: Pupils Equal, Pupils Reactive Ears & Nose Ears & Nose Exam: Nasal Mucosa [place] Throat Throat Exam: Oral Mucosa [place] & Moist Neck Neck Exam: Neck Supple, Trachea Midline Pulmonary Resp Exam: Breath Sounds Equal Cardiology CV Exam: Irregular, Pacemaker Gastrointestinal/Abdomen GI Exam: Soft, Non-Tender, Bowel Sounds Present, Non-Distended Musculoskeletal MS Remarks Left hip incision Integumentary Skin Exam: Warm, Dry Extremeties Extremities Exam: Pedal Pulses Palpable, Trace Edema Neurologic Neuro Exam: Alert, Awake, Oriented, Speech Clear, Moving All Extremities, No Focal Deficits VTE Prophylaxis VTE Prophylaxis Meds: Lovenox PUD Prophylasis PUD Prophylaxis: Protonix Assessment/Plan Problem List: (1) Anemia ICD Codes: D64.9 - Anemia, unspecified Status: Acute (2) AAA (abdominal aortic aneurysm) without rupture ICD Codes: I71.4 - Abdominal aortic aneurysm, without rupture Status: Chronic (3) Hypertension ICD Codes: I10 - Hypertension Status: Chronic (4) History of prostate cancer ICD Codes: Z85.46 - Personal history of malignant neoplasm of prostate Status: Chronic (5) Thoracic aortic aneurysm ICD Codes: I71.2 - Thoracic aortic aneurysm, without rupture Status: Chronic (6) Hyperlipidemia ICD Codes: E78.5 - Hyperlipidemia Status: Chronic (7) Dementia ICD Codes: F03.90 - Dementia Status: Chronic (8) CAD (coronary artery disease) ICD Codes: I25.10 - Coronary artery disease Status: Chronic (9) COPD (chronic obstructive pulmonary disease) ICD Codes: J44.9 - Chronic obstructive pulmonary disease, unspecified Status: Chronic (10) Recent fall, left femur fracture, status post surgery (11) History of atrial fibrillation ICD Codes: Z86.79 - Personal history of other diseases of the circulatory system (12) CKD (chronic kidney disease) stage 3, GFR 30-59 ml/min ICD Codes: N18.3 - Chronic kidney disease, stage 3 (moderate) Status: Acute Assessment/Plan S/P fall, accidental at the SNF, with a laceration to the scalp and left hip fracture, had ORIF left hip 06/09. Was brought back to ED with anemia, Hgb 6.7 Anemia, likely post op. Had recent ORIF left hip -has received 1 unit PRBC, Hgb 7.3 -will given one more unit -iron studies noted, low iron stores. Continue PO Iron -stool OB pending -Hgb 8.4/Hct 24/. -Stable, no active bleeding S/P fall, accidental at the SNF, with a laceration to the scalp and left hip fracture, had ORIF left hip 06/09 -consult PT for evaluation -order appropriate pain management -wound care -Scalp laceration stable, no bleeding, CARL AAA (abdominal aortic aneurysm) and thoracic abdominal aneurysm -evaluated by cardiothoracic surgery during recent admission. Recommends no surgery, advance age, no appropriate due to comorbidities, advanced age. Recommended BP control. Family did not want surgery -BP stable, resume meds Dementia -continue home meds Afib PPM HTN Hyperlipidemia -stable, continue with med management Chronic pain -cont. with pain management COPD,stable -Duonebs PRN Hx Prostate cancer/bladder, stable -continue to monitor Continue with Lovenox for DVT prophylaxis Continue with PT DNR status CM for dc planning HH stable Discharge to SNF today F/U ortho, pcp Activity-per ortho Diet-heart healthy D/W RN D/W Dr. Tilley D/W pt This patient was seen by myself and Dr. Tilley, this note is written on his behalf. Discharge Minutes: 45 Problem Qualifiers (1) Anemia: Qualified Codes: D64.9 - Anemia, unspecified (2) Hyperlipidemia: Qualified Codes: E78.5 - Hyperlipidemia, unspecified (3) Dementia: (4) CAD (coronary artery disease): Qualified Codes: I25.10 - Atherosclerotic heart disease of [place] coronary artery without angina pectoris (5) COPD (chronic obstructive pulmonary disease): Qualified Codes: J44.9 - Chronic obstructive pulmonary disease, unspecified Antionette Jacobson Jun 14, 2017 10:12
[2017-06-14] MEDS ORDERED: HEMO324T PO (10:14)
[2017-06-14 10:20] VITALS: O2SAT 97
[2017-06-14 11:55] VITALS: BP 102/59; PULSE 61; RESP 18; TEMP 97.7; O2SAT 94
== END 2017-06-14 17:32 ==
LOC: NEPC 19:58 → NEDA 21:24 → NEDH 06-13 01:42 → N06B 06-13 09:53 → N06A 06-13 20:10
PROVIDERS: ADMIT Specialist; ATTEND Specialist
DX: D64.9 Anemia, unspecified (principal); D69.6 Thrombocytopenia, unspecified; I71.6 Thoracoabdominal aortic aneurysm, without rupture; I12.9 Hypertensive chronic kidney disease with stage 1 through stage 4 chronic kidney disease, or unspecified chronic kidney disease; N18.3 Chronic kidney disease, stage 3 (moderate); E78.5 Hyperlipidemia, unspecified; M19.90 Unspecified osteoarthritis, unspecified site; F32.9 Major depressive disorder, single episode, unspecified; I48.91 Unspecified atrial fibrillation; I25.10 Atherosclerotic heart disease of native coronary artery without angina pectoris; J44.9 Chronic obstructive pulmonary disease, unspecified; G89.29 Other chronic pain; F02.80 Dementia in other diseases classified elsewhere, unspecified severity, without behavioral disturbance, psychotic disturbance, mood disturbance, and anxiety; G30.9 Alzheimer's disease, unspecified; Z85.46 Personal history of malignant neoplasm of prostate; Z95.1 Presence of aortocoronary bypass graft; Z87.442 Personal history of urinary calculi; F17.210 Nicotine dependence, cigarettes, uncomplicated; Z95.5 Presence of coronary angioplasty implant and graft; Z95.0 Presence of cardiac pacemaker; Z66 Do not resuscitate
CPT/HCPCS: 36430; 80048; 82607; 82728; 82746; 83540; 83550; 83615; 85025; 85027; 85610; 85730; 86850; 86900; 86901; 86920; 96360; 96361; 96372; 97162; 97530; 99285; G0378; G8987; G8988; J1650; J7050; P9016

== ENCOUNTER 2017-11-12 22:12 | Inpatient (IN) | payer MEDICARE, OTHER ==
[~2017-11-12] VITALS: Ht 185.4 cm; Wt 76.5 kg
[~2017-11-12 22:12] MED LIST changes: +ASPI-183 PO; -ASPI325T PO; +HEMO324T PO; -OXYB5TAB10 PO; +OXYB5TAB8 PO
[2017-11-12 22:18] VITALS: BP 147/77; PULSE 62; RESP 22; TEMP 97.9; O2SAT 94
[2017-11-12] MEDS: RESP: ALBUTEROL 2.5 MG/IPRATROPIUM 0.5 MG NEB (SCH) INH ×2 (22:24→22:25)
[2017-11-12 22:27] VITALS: RESP 22; O2SAT 97; O2SAT 98
[2017-11-12] MEDS ORDERED: SODIUM CHLORIDE 0.9% FLUSH 10 ML FLUSH IVF PRN (22:30)
[2017-11-12 23:09] LABS: BASOPHIL % 0.3 % (0.0-2.0); EOSINOPHIL # 0.1 TH/MM3 (0-0.4); EOSINOPHIL % 0.6 % (0.0-4.0); HEMATOCRIT 29.8 % (39.0-51.0); HEMOGLOBIN 9.9 GM/DL (13.0-17.0); LYMPH % 5.6 % (9.0-44.0); LYMPHOCYTE # 0.8 TH/MM3 (1.0-4.8); MEAN CELL VOLUME 85.3 FL (80.0-100.0); MEAN CORPUSCULAR HEMOGLOBIN 28.4 PG (27.0-34.0); MEAN CORPUSCULAR HGB CONC 33.3 % (32.0-36.0); MEAN PLATELET VOLUME 7.5 FL (7.0-11.0); MONO % 8.3 % (0.0-8.0); MONOCYTE # 1.2 TH/MM3 (0-0.9); NEUT % 85.2 % (16.0-70.0); PLATELET COUNT 186 TH/MM3 (150-450); RED BLOOD COUNT 3.49 MIL/MM3 (4.50-5.90); RED CELL DISTRIBUTION WIDTH 14.6 % (11.6-17.2); WHITE BLOOD COUNT 14.1 TH/MM3 (4.0-11.0)
--- NOTE | 2017-11-12 23:24 | RADRPT ---
EXAM DATE/TIME: 11/12/2017 23:07 [facility] COMPARISON: CHEST SINGLE AP, June 08, 2017, 15:25. INDICATIONS : Short of breath. MEDICAL HISTORY : Cardiovascular disease. SURGICAL HISTORY : Pacemaker. CABG. ENCOUNTER: Initial ACUITY: 1 day PAIN SCORE: 0/10 LOCATION: Bilateral chest FINDINGS: Mild indistinctness of the central bronchopulmonary markings similar to prior examination May 11. No focal infiltrates seen. Tortuosity of the descending thoracic aorta. The heart is upper li mits normal size stop prior median sternotomy and valve replacement. Cardiac pacer leads in place. CONCLUSION: No focal infiltrates seen. Mild indistinctness of the central bronchopulmonary markings stable from prior. Delvis Cage MD on November 12, 2017 at 23:22 Board Certified Radiologist. This report was verified electronically.
[2017-11-12] MEDS ORDERED: PIPERACIL-TAZO 3.375 GM PREMIX 50 ML IV ONE (23:30)
[2017-11-12 23:42] LABS: ALBUMIN 3.4 GM/DL (3.4-5.0); ALT (GPT) 12 U/L (12-78); AST (GOT) 16 U/L (15-37); BICARBONATE 30.6 MEQ/L (21.0-32.0); BLOOD UREA NITROGEN 22 MG/DL (7-18); CALCIUM 8.4 MG/DL (8.5-10.1); CHLORIDE 103 MEQ/L (98-107); CREATININE 1.03 MG/DL (0.60-1.30); GLOMERULAR FILTRATION RATE 69 ML/MIN (>89); GLUCOSE,RANDOM 116 MG/DL (74-106); SODIUM (NA) 138 MEQ/L (136-145)
[2017-11-12 23:45] LABS: ALKALINE PHOSPHATASE 73 U/L (45-117); TOTAL BILIRUBIN ADULT 0.8 MG/DL (0.2-1.0); TROPONIN I LESS THAN 0.02 NG/ML (0.02-0.05)
[2017-11-13] VITALS (9 sets, daily range): BP systolic 128–182; BP diastolic 67–92; PULSE 61–68; RESP 12–22; TEMP 97.9–98.5; O2SAT 93–98
[2017-11-13 00:01] LABS: INTERNATIONAL NORMALIZED RATIO 1.1 RATIO; PROTHROMBIN TIME - PATIENT 11.6 SEC (9.8-11.6)
[2017-11-13 00:02] LABS: D-DIMER 9.98 MG/L FEU (0.00-0.50)
[2017-11-13] MEDS ORDERED: METH5TAB PO (00:15)
[2017-11-13] MEDS ORDERED: LORA0.5T PO (00:15)
[2017-11-13] MEDS ORDERED: IOHEXOL 350 MG/ML 10 ML VIAL (for RAD DIAG) IVCONTRAST ONE (01:39)
--- NOTE | 2017-11-13 02:13 | RADRPT ---
EXAM DATE/TIME: 11/13/2017 01:39 [facility] COMPARISON: CTA THORACIC ABDOMINAL AORTA W 3D RECON, June 08, 2017, 14:39. CHEST SINGLE AP, June 08, 017, 15:25. CT ABDOMEN & PELVIS W/O CONTRAST, December 07, 2015, 10:17. CT PULMONARY ANGIOGRAM, Apple2015, 16:06. INDICATIONS : Shortness of breath. IV CONTRAST: 75 cc Omnipaque 350 (iohexol) IV RADIATION DOSE: 8.28 CTDIvol (mGy) MEDICAL HISTORY : Cardiovascular disease. Dementia. AAA SURGICAL HISTORY : CABG Pacemaker. ENCOUNTER: Initial ACUITY: 1 day PAIN SCALE: 3/10 LOCATION: Bilateral chest TECHNIQUE: Volumetric scanning of the chest was performed using a pulmonary embolism protocol MIP images were re constructed. Using automated exposure control and adjustment of the mA and/or kV according to patien t size, radiation dose was kept as low as reasonably achievable to obtain optimal diagnostic quality images. DICOM format image data is available electronically for review and comparison. Follow-up recommendations for detected pulmonary nodules are based at a minimum on nodule size and pa tient risk factors according to Fleischner Society Guidelines. FINDINGS: PULMONARY ARTERIES: No filling defects are seen in the pulmonary arteries through the segmental level. LUNGS: There is mild patchy airspace consolidation in the right upper lobe, primarily in the posterior segme nt. In the right lower lobe there is chronic subpleural parenchymal opacity characteristic of scar ra ther atelectasis. There are calcifications within the lungs bilaterally. No pneumothorax is present. PLEURAE: There is chronic pleural thickening with calcification in the posterior mid and inferior right hemith orax. No pleural effusion is present. MEDIASTINUM: There is mild enlargement of the heart. Patient is post aortic valve replacement. There is enlargemen t of the aortic root with mild wall thickening. The distal ascending arch measures up to 4.8 cm and t he descending thoracic aorta measures up to 4 cm. 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 No lymphadenopathy is seen. MUSCULOSKELETAL: There are degenerative changes of the thoracic spine. Median sternotomy wires are present. MISCELLANEOUS: There is an aneurysm of the proximal infrarenal aorta measuring up to 5.7 cm which measures slightly larger than the prior study. More distally it measures up to 6 cm. There is bilateral hypermastia. Le ft chest wall cardiac cardiac pacing device is present. CONCLUSION: 1. No PE is identified. 2. Patchy airspace consolidation in the right upper lobe suggesting an infectious or inflammatory pro cess. 3. 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 The pre sumed penetrating atherosclerotic ulcer adjacent to the distal ascending arch is stable. There is a s table aneurysm of the descending thoracic aorta and the aneurysm and the upper abdomen is similar to the most recent prior study. 4. Stable right lower lobe round atelectasis versus parenchymal scar and chronic pleural thickening w ith calcification. Ion Jones MD on November 13, 2017 at 2:01 Board Certified Radiologist. This report was verified electronically.
--- NOTE | 2017-11-13 02:22 | PD ---
HPI . Respiratory symptoms Chief Complaint: Respiratory Symptoms Time Seen by Provider: 22:21 Travel History International Travel<30 days: No Contact w/Intl Traveler<30days: No Traveled to known affect area: No History of Present Illness HPI 82-year-old male presents with significant dyspnea from a shelter facility brought in by EMS who administered DuoNeb and albuterol nebulized treatments as well as Cymetra 125 IV push for market dyspnea. Patient has significant improvement by presentation as per laundry agent. Patient denies any fever chills sweats. Somewhat limited historian secondary to Alzheimer's. [facility] Past Medical History Narrative Medical Past medical history reviewed Alzheimer's Disease: Yes Arthritis: Yes Depression: Yes Heart Rhythm Problems: Yes (AFIB) Cancer: Yes (PROSTATE) Cardiac Catheterization: Yes Cardiovascular Problems: Yes (PACEMAKER, valves replaced , CABG, Aortic aneurysms ) High Cholesterol: Yes Chest Pain: No Congestive Heart Failure: No COPD: Yes Coronary Artery Disease: No Dementia: Yes Diabetes: No Diminished Hearing: No Endocrine: No Gastrointestinal Disorders: No Glaucoma: No Genitourinary: Yes (IMPLANT TO L ARM TO DECREASE TESTOSTERONE LEVELS S/P PROSTATE CA) Headaches: No Hepatitis: No Hiatal Hernia: No Hypertension: Yes Immune Disorder: No Implanted Vascular Access Dvce: Yes Kidney Stones: Yes Musculoskeletal: Yes Neurologic: No Psychiatric: Yes Reproductive: No Respiratory: Yes Integumentary: No Immunizations Current: Yes Radiation Therapy: Yes (Seed implants ) Seizures: No Thyroid Disease: No Past Surgical History Body Medical Devices: PACEMAKER Cardiac Surgery: Yes (VALVE REPLACED 2005, STENTS, PACEMAKER) Coronary Artery Bypass Graft: Yes Genitourinary Surgery: Yes (Radioactive Tx on prostate ) Pacemaker: Yes (left pacemaker ) Other Surgery: Yes (Pacemaker, valves replaced , CABG) Social History Alcohol Use: No Tobacco Use: No Substance Use: Yes (History of oxycodone abuse, last used 2013) Allergies-Medications (Allergen,Severity, Reaction): Coded Allergies: No Known Allergies (Unverified , 06/12/17) Reported Meds & Prescriptions Reported Meds & Active Scripts Active Aspirin 325 Mg Tab 325 Mg PO DAILY 30 Days start after Lovenox completed Reported Lorazepam 0.5 Mg Tab 0.5 Mg PO Q6H PRN Methadone (Methadone HCl) 5 Mg Tab 2.5 Mg PO TID Ditropan (Oxybutynin Chloride) 5 Mg Tab 5 Mg PO Q12HR Carvedilol 25 Mg Tab 25 Mg PO BID Sertraline (Sertraline HCl) 100 Mg Tab 100 Mg PO DAILY Narrative Medication Allergies and medications reviewed Review of Systems ROS Limitations: Poor Historian Except as stated in HPI: all other systems reviewed are Neg General / Constitutional: No: Fever Eyes: No: Visual changes HENT: No: Headaches Cardiovascular: No: Chest Pain or Discomfort Respiratory: Positive: Shortness of Breath, Wheezing Gastrointestinal: No: Abdominal Pain Genitourinary: No: Dysuria Musculoskeletal: No: Pain Skin: No Rash Neurologic: No: Weakness Psychiatric: No: Depression Endocrine: No: Polydipsia Hematologic/Lymphatic: No: Easy Bruising Physical Exam Narrative GENERAL: Awake and alert, acutely dyspneic, confused baseline. SKIN: Warm and dry. Slightly sallow appearing, no diaphoresis cyanosis or pallor no rashes HEAD: Atraumatic. Normocephalic. EYES: Pupils equal and round. No scleral icterus. No injection or drainage. ENT: No nasal bleeding or discharge. Mucous membranes pink and moist. NECK: Trachea midline. No JVD. Supple nontender full range of motion CARDIOVASCULAR: Regular rate and rhythm. S1-S2 no murmurs rubs or gallop RESPIRATORY: No accessory muscle use. Clear to auscultation. Breath sounds equal bilaterally. GASTROINTESTINAL: Abdomen soft, non-tender, nondistended. Hepatic and splenic margins not palpable. MUSCULOSKELETAL: Extremities without clubbing, cyanosis, or edema. No obvious deformities. NEUROLOGICAL: Awake and alert. No obvious focal deficits. Difficult exam secondary to patient's Alzheimer's and compliance PSYCHIATRIC: Pleasant Data Data Last Documented VS Vital Signs Date Time Temp Pulse Resp B/P (MAP) Pulse Ox O2 Delivery O2 Flow Rate FiO2 11/13/17 00:07 64 22 128/67 (87) 97 Nasal Cannula 2.00 11/12/17 22:18 97.9 Orders Orders Complete Blood Count With Diff (11/12/17 22:21) Comprehensive Metabolic Panel (11/12/17 22:21) B-Type Natriuretic Peptide (11/12/17 22:21) D-Dimer (11/12/17 22:21) Act Partial Throm Time (Ptt) (11/12/17 22:21) Prothrombin Time / Inr (Pt) (11/12/17 22:21) Magnesium (Mg) (11/12/17 22:21) Ckmb (Isoenzyme) Profile (11/12/17 22:21) Troponin I (11/12/17 22:21) Urinalysis - C+S If Indicated (11/12/17 22:21) Influenzae A/B Antigen (11/12/17 22:21) Blood Culture (11/12/17 22:21) Iv Access Insert/Monitor (11/12/17 22:21) Electrocardiogram (11/12/17 22:21) Ecg Monitoring (11/12/17 22:21) Oximetry (11/12/17 22:21) Oxygen Administration (11/12/17 22:21) Chest, Single Ap (11/12/17 22:21) Sodium Chloride 0.9% Flush (Ns Flush) (11/12/17 22:30) Albuterol-Ipratropium Neb (Duoneb Neb) (11/12/17 22:30) Arterial Blood Gas (Abg) (11/12/17 ) Blood Culture (11/12/17 23:18) Piperacil-Tazo 3.375 Gm Premix (Zosyn 3. (11/12/17 23:30) Ct Pulmonary Angiogram (11/13/17 ) Labs Laboratory Tests Test 11/12/17 22:20 11/12/17 22:30 White Blood Count 14.1 TH/MM3 Red Blood Count 3.49 MIL/MM3 Hemoglobin 9.9 GM/DL Hematocrit 29.8 % Mean Corpuscular Volume 85.3 FL Mean Corpuscular Hemoglobin 28.4 PG Mean Corpuscular Hemoglobin Concent 33.3 % Red Cell Distribution Width 14.6 % Platelet Count 186 TH/MM3 Mean Platelet Volume 7.5 FL Neutrophils (%) (Auto) 85.2 % Lymphocytes (%) (Auto) 5.6 % Monocytes (%) (Auto) 8.3 % Eosinophils (%) (Auto) 0.6 % Basophils (%) (Auto) 0.3 % Neutrophils # (Auto) 12.0 TH/MM3 Lymphocytes # (Auto) 0.8 TH/MM3 Monocytes # (Auto) 1.2 TH/MM3 Eosinophils # (Auto) 0.1 TH/MM3 Basophils # (Auto) 0.0 TH/MM3 CBC Comment DIFF FINAL Differential Comment Prothrombin Time 11.6 SEC Prothromb Time International Ratio 1.1 RATIO Activated Partial Thromboplast Time 28.5 SEC D-Dimer Quantitative (PE/DVT) 9.98 MG/L FEU Blood Urea Nitrogen 22 MG/DL Creatinine 1.03 MG/DL Random Glucose 116 MG/DL Total Protein 7.0 GM/DL Albumin 3.4 GM/DL Calcium Level 8.4 MG/DL Magnesium Level 2.0 MG/DL Alkaline Phosphatase 73 U/L Aspartate Amino Transf (AST/SGOT) 16 U/L Alanine Aminotransferase (ALT/SGPT) 12 U/L Total Bilirubin 0.8 MG/DL Sodium Level 138 MEQ/L Potassium Level 4.2 MEQ/L Chloride Level 103 MEQ/L Carbon Dioxide Level 30.6 MEQ/L Anion Gap 4 MEQ/L Estimat Glomerular Filtration Rate 69 ML/MIN Total Creatine Kinase 51 U/L Troponin I LESS THAN 0.02 NG/ML B-Type Natriuretic Peptide 929 PG/ML Blood Gas Puncture Site RT RADIAL Blood Gas Patient Temperature 98.6 Blood Gas HCO3 28 mmol/L Blood Gas Base Excess 2.4 mmol/L Blood Gas Oxygen Saturation 94 % Arterial Blood pH 7.33 Arterial Blood Partial Pressure CO2 55 mmHg Arterial Blood Partial Pressure O2 95 mmHG Arterial Blood Oxygen Content 12.3 Vol % Arterial Blood Carboxyhemoglobin 2.8 % Arterial Blood Methemoglobin 0.3 % Blood Gas Hemoglobin 9.1 G/DL Oxygen Delivery Device NASAL CANNULA Blood Gas Liter Flow 2 L/M [facility] Medical Decision Making Medical Screen Exam Complete: Yes Emergency Medical Condition: Yes Medical Record Reviewed: Yes Differential Diagnosis Pneumonia, emphysema, COPD exacerbation, influenza Narrative Course Chest x-ray reveals right-sided infiltrate. Patient has elevated white blood cell count 14.1. Patient pancultured, administered Zosyn IV piggyback. Markedly elevated d-dimer. Patient also has a history of thoracic aortic aneurysm. CT pulmonary angiogram revealed stable thoracic aneurysm, and no obvious pulmonary embolism. Emphysema and infiltrate as noted above corroborated by CT Discussed with hospitalist service Dr. Thorpe, admitted Diagnosis Primary Impression: Pneumonia Qualified Codes: J18.1 - Lobar pneumonia, unspecified organism Additional Impression: Thoracic aortic aneurysm Admitting Information Admitting Physician Requests: Admit Jonah Ascencio MD Nov 13, 2017 02:22
[2017-11-13] MEDS ORDERED: ACETAMINOPHEN 325 MG TAB PO PRN (02:30)
[2017-11-13] MEDS ORDERED: NALOXONE HCL 0.4 MG/ML AMP IV PUSH PRN (02:30)
[2017-11-13] MEDS ORDERED: FUROSEMIDE 40 MG/4 ML VIAL IV PUSH ONE (02:30)
[2017-11-13] MEDS ORDERED: ONDANSETRON HCL 4 MG/2 ML VIAL IVP PRN (02:30)
[2017-11-13] MEDS ORDERED: SENNOSIDES 8.6 MG TAB PO PRN (02:30)
[2017-11-13] MEDS ORDERED: BISACODYL 10 MG SUPP RECTAL PRN (02:30)
[2017-11-13] MEDS ORDERED: SODIUM CHLORIDE 0.9% FLUSH 10 ML FLUSH IV FLUSH PRN (02:30)
[2017-11-13] MEDS ORDERED: MAGNESIUM HYDROXIDE SUSP 30 ML CUP PO PRN (02:30)
[2017-11-13] MEDS ORDERED: Vancomycin Consult Pharmacy 1 EA OTHER SCH (02:30)
[2017-11-13] MEDS ORDERED: LACTULOSE SYRUP 20 GM/30 ML CUP PO PRN (02:30)
[2017-11-13 02:38] LABS: BILIRUBIN, URINE NEG (NEG); BLOOD, URINE MOD (NEG); GLUCOSE,URINE NEG (NEG); HYALINE CAST, URINE 1 /lpf (RARE); KETONE, URINE NEG (NEG); MUCUS URINE FEW /lpf (OCC); NITRITE,URINE NEG (NEG); PH, URINE 5.5 (5.0-8.5); SQUAMOUS EPITHELIAL CELL URINE <1 /hpf (0-5); URINE COLOR YELLOW (YELLW/STRAW); URINE LEUKOCYTE ESTERASE NEG (NEG)
[2017-11-13] MEDS ORDERED: VANCOMYCIN INJ 1,000 MG in SODIUM CHLOR 0.9% 250 ML INJ 250 ML IV ONE (03:00)
[2017-11-13] MEDS: HEPARIN SODIUM - SQ 10,000 UNITS/ML VIAL SQ SCH ×2 (06:16→18:49)
[2017-11-13] MEDS: PIPERACIL-TAZO 4.5 GM PREMIX 100 ML IV SCH ×3 (06:17→18:49)
[2017-11-13] MEDS: DOCUSATE SODIUM 50 MG/SENNA 8.6 MG TAB PO SCH ×2 (09:00→22:45)
[2017-11-13] MEDS ORDERED: OXYBUTYNIN CHLORIDE 5 MG TAB PO SCH (09:00)
[2017-11-13] MEDS ORDERED: CARVEDILOL 12.5 MG TAB PO SCH (09:00)
[2017-11-13] MEDS ORDERED: METHADONE HCL 10 MG TAB PO SCH (09:00)
[2017-11-13] MEDS ORDERED: ASPIRIN 325 MG TAB PO SCH (09:00)
[2017-11-13] MEDS: SODIUM CHLORIDE 0.9% FLUSH 10 ML FLUSH IV FLUSH SCH ×2 (09:00→23:34)
[2017-11-13] MEDS: LORazepam 0.5 MG TAB PO PRN ×3 (10:23→22:46)
--- NOTE | 2017-11-13 11:03 | EKG ---
Date Performed: 11/12/2017 Time Performed: 22:38:09 PTAGE: 82 years EKG: ELECTRONIC VENTRICULAR PACEMAKER NO APPARENT P WAVES (POSSIBLE ATRIAL FIBRILLATION) ABNORMA L RHYTHM ECG PREVIOUS TRACING : 06/08/2017 08.41 DOCTOR: Jan Castro Interpretating Date/Time 11/13/2017 11:01:56
[2017-11-13] MEDS: SERTRALINE HCL 100 MG TAB PO SCH (11:19)
--- NOTE | 2017-11-13 13:32 | MB ---
cc: Ortega Wu MD DATE OF CONSULT: REASON FOR CONSULTATION: Evaluation of shortness of breath. HISTORY OF PRESENT ILLNESS: Avelino Giacomo is an 82-year-old man from an assisted living facility who comes in with dyspnea. Patient is a longstanding smoker and has known COPD. He has also had a wet cough. Denies any chest pain. Denies orthopnea, PND or edema. He has a history of atrial fibrillation that has been present. No ICD check since 04/03. He is not on warfarin as he was in September. It is not clear how this was stopped and daughter could not shed any light on that. He does not give me any history of chest pain or syncope. He is known to have a dual-chamber Medtronic pacemaker that is functioning normally for chronic AFib. He has smoked right up until the time of this admission. MEDICATIONS PRIOR TO ADMISSION: Include carvedilol 25 b.i.d., aspirin. There are no other cardiac meds. He is also on Ditropan. PAST MEDICAL HISTORY: Includes aortic and thoracic aortic aneurysms, being managed conservatively due to his dementia, chronic AFib, COPD, hyperlipidemia, hypothyroidism, neuropathy, prostate cancer, bovine prosthetic aortic valve. There is mention of past cardiomyopathy with resolution of his LV dysfunction. PAST SURGICAL HISTORY: Includes bovine aortic valve replacement 02/2006, Medtronic pacemaker. ALLERGIES: NO KNOWN. FAMILY HISTORY: Positive for stroke in the mother and father and prostate cancer in a brother and father. SOCIAL HISTORY: Notable for lifelong smoking. REVIEW OF SYSTEMS: Negative for bleeding. PHYSICAL EXAMINATION: Shows a thin elderly white male. He is alert. He has a wet cough. His vital signs are charted. HEENT: Unremarkable. NECK: Showed absence of JVD. CHEST: Shows severely diminished breath sounds throughout. I do not hear any rales. CARDIAC: Shows S1, S2. Regular rate and rhythm with a II/ early peaking systolic ejection murmur. ABDOMEN: Soft, nontender. EXTREMITIES: Reveal no peripheral edema. Chest x-ray on my look shows findings consistent with COPD, is interpreted as no focal infiltrates. Chest CTA shows chronic pleural thickening, patchy airspace consolidation right upper lobe. LABORATORIES: Creatinine is 1.03. Troponin is normal. BNP 929. IMPRESSION: I do not see evidence for congestive heart failure this admission. Looks like a chronic obstructive pulmonary disease exacerbation with some bronchitis with tobacco addiction. He is on carvedilol, which is a nonspecific beta zoraida, which probably is not helping his chronic obstructive pulmonary disease. I am changing that to metoprolol. He has chronic atrial fibrillation and not on anticoagulation. I am switching his aspirin to Eliquis 5 b.i.d. I was not going to order any additional diuretic at this point. He has got an echocardiogram ordered by me to look at his LV function. It may benefit from having pulmonary see him, since I do not think this is a primary cardiac admit. MD CARLTON Kraus/LAZ , 01:11 PM , 01:31 PM
--- NOTE | 2017-11-13 21:01 | HHI.HP ---
[facility] Ki Brambila MD Admission Diagnosis Pneumonia, COPD Exacerbation, CHF Diagnoses: Travel History International Travel<30 Days: No Contact w/Intl Traveler <30 Da: No Traveled to Known Affected Are: No History of Present Illness 82 yo Male with dementia who sent in from half-way facility sent in for shortness of breath. History is severely limited by what appears to be chronic dementia. Patient is pleasant but is uncertain why he is here. Patient says he does feel short of breath, deduces that he must be here in a hospital because of his shortness of breath. He denies any chest pain.he has no other complaintsat the time of examination. Denies any nausea, vomiting, lightheadedness, dizziness, fevers, chills. Review of Systems Except as stated in HPI: all other systems reviewed are Neg Past Family Social History Past Medical History Hypertension Hyperlipidemia Coronary artery disease Atrial fibrillation COPD Prostate cancer Thoracic aortic aneurysm Alzheimer's Past Surgical History . Pacemaker placement Coronary artery bypass Radiation implants of prostate Cardiac catheterization with stenting History of prosthetic aortic valve Reported Medications Reported Meds & Active Scripts Active Aspirin 325 Mg Tab 325 Mg PO DAILY 30 Days start after Lovenox completed Reported Lorazepam 0.5 Mg Tab 0.5 Mg PO Q6H PRN Methadone (Methadone HCl) 5 Mg Tab 2.5 Mg PO TID Ditropan (Oxybutynin Chloride) 5 Mg Tab 5 Mg PO Q12HR Carvedilol 25 Mg Tab 25 Mg PO BID Sertraline (Sertraline HCl) 100 Mg Tab 100 Mg PO DAILY Allergies: Coded Allergies: No Known Allergies (Unverified , 06/12/17) Family History patient is unable to tell me his family history. Social History nonsmoker. Nondrinker. No illicit drugs. Physical Exam Vital Signs Vital Signs Date Time Temp Pulse Resp B/P (MAP) Pulse Ox O2 Delivery O2 Flow Rate FiO2 11/13/17 18:52 98.5 64 12 144/79 (100) 93 11/13/17 14:06 63 20 167/75 (105) 98 Room Air 3/7/18 09:32 68 20 148/78 (101) 97 Nasal Cannula 2.00 11/13/17 06:00 61 20 142/79 (100) 96 Nasal Cannula 2.00 11/13/17 04:57 63 20 169/79 (109) 96 Nasal Cannula 2.00 11/13/17 02:00 68 20 155/76 (102) 97 Nasal Cannula 2.00 11/13/17 00:07 64 22 128/67 (87) 97 Nasal Cannula 2.00 11/12/17 22:27 98 Nasal Cannula 2.00 11/12/17 22:27 22 97 Nasal Cannula 2.00 11/12/17 22:27 98 Nasal Cannula 2.00 11/12/17 22:23 22 93 Room Air 11/12/17 22:18 97.9 62 22 147/77 (100) 94 Physical Exam GENERAL: This is a well-nourished, well-developed patient, in no apparent distress.disoriented but pleasant. SKIN: No rashes, ecchymoses or lesions. Cool and dry. HEAD: Atraumatic. Normocephalic. No temporal or scalp tenderness. EYES: Pupils equal round and reactive. Extraocular motions intact. No scleral icterus. No injection or drainage. ENT: Nose without bleeding, purulent drainage or septal hematoma. Throat without erythema, tonsillar hypertrophy or exudate. Uvula midline. Airway patent. NECK: Trachea midline. No JVD or lymphadenopathy. Supple, nontender, no meningeal signs. CARDIOVASCULAR: Regular rate and rhythm without murmurs, gallops, or rubs. RESPIRATORY: Clear to auscultation. Breath sounds equal bilaterally. crackles and rhonchi bilaterally. GASTROINTESTINAL: Abdomen soft, non-tender, nondistended. No hepato-splenomegaly , or palpable masses. No guarding. MUSCULOSKELETAL: Extremities without clubbing, cyanosis, or edema. No joint tenderness, effusion, or edema noted. No calf tenderness. Negative Homans sign bilaterally. NEUROLOGICAL: Awake and alert. Cranial nerves II through XII intact. Motor and sensory grossly within normal limits. Five out of 5 muscle strength in all muscle groups. Normal speech. Laboratory Laboratory Tests Test 11/12/17 22:20 11/12/17 22:30 11/13/17 01:50 White Blood Count 14.1 Red Blood Count 3.49 Hemoglobin 9.9 Hematocrit 29.8 Mean Corpuscular Volume 85.3 Mean Corpuscular Hemoglobin 28.4 Mean Corpuscular Hemoglobin Concent 33.3 Red Cell Distribution Width 14.6 Platelet Count 186 Mean Platelet Volume 7.5 Neutrophils (%) (Auto) 85.2 Lymphocytes (%) (Auto) 5.6 Monocytes (%) (Auto) 8.3 Eosinophils (%) (Auto) 0.6 Basophils (%) (Auto) 0.3 Neutrophils # (Auto) 12.0 Lymphocytes # (Auto) 0.8 Monocytes # (Auto) 1.2 Eosinophils # (Auto) 0.1 Basophils # (Auto) 0.0 CBC Comment DIFF FINAL Differential Comment Prothrombin Time 11.6 Prothromb Time International Ratio 1.1 Activated Partial Thromboplast Time 28.5 D-Dimer Quantitative (PE/DVT) 9.98 Blood Urea Nitrogen 22 Creatinine 1.03 Random Glucose 116 Total Protein 7.0 Albumin 3.4 Calcium Level 8.4 Magnesium Level 2.0 Alkaline Phosphatase 73 Aspartate Amino Transf (AST/SGOT) 16 Alanine Aminotransferase (ALT/SGPT) 12 Total Bilirubin 0.8 Sodium Level 138 Potassium Level 4.2 Chloride Level 103 Carbon Dioxide Level 30.6 Anion Gap 4 Estimat Glomerular Filtration Rate 69 Total Creatine Kinase 51 Troponin I LESS THAN 0.02 B-Type Natriuretic Peptide 929 Blood Gas Puncture Site RT RADIAL Blood Gas Patient Temperature 98.6 Blood Gas HCO3 28 Blood Gas Base Excess 2.4 Blood Gas Oxygen Saturation 94 Arterial Blood pH 7.33 Arterial Blood Partial Pressure CO2 55 Arterial Blood Partial Pressure O2 95 Arterial Blood Oxygen Content 12.3 Arterial Blood Carboxyhemoglobin 2.8 Arterial Blood Methemoglobin 0.3 Blood Gas Hemoglobin 9.1 Oxygen Delivery Device NASAL CANNULA Blood Gas Liter Flow 2 Urine Color YELLOW Urine Turbidity CLEAR Urine pH 5.5 Urine Specific Mcgregor 1.015 Urine Protein TRACE Urine Glucose (UA) NEG Urine Ketones NEG Urine Occult Blood MOD Urine Nitrite NEG Urine Bilirubin NEG Urine Urobilinogen LESS THAN 2.0 Urine Leukocyte Esterase NEG Urine RBC 2 Urine WBC 1 Urine Squamous Epithelial Cells <1 Urine Hyaline Casts 1 Urine Mucus FEW Microscopic Urinalysis Comment CULT NOT INDICATED Date/Time Source Procedure Growth Status 11/12/17 23:40 Blood Peripheral Aerobic Blood Culture - Preliminary NO GROWTH IN 1 DAY Resulted 11/12/17 23:40 Blood Peripheral Anaerobic Blood Culture - Preliminary NO GROWTH IN 1 DAY Resulted 11/13/17 01:55 Nasal Washing Influenza Types A,B Antigen ([facility]) - Final Positive For Flu A Antigen Complete Result Diagram: 11/12/17221911/12/172219 Imaging Last Impressions CT Angiography 11/13/17 0000 Signed Impressions: Service Date/Time: Monday, November 13, 2017 01:39 - CONCLUSION: 1. No PE is identified. 2. Patchy airspace consolidation in the right upper lobe suggesting an infectious or inflammatory process. 3. 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 The presumed penetrating atherosclerotic ulcer adjacent to the distal ascending arch is stable. 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 4. Stable right lower lobe round atelectasis versus parenchymal scar and chronic pleural thickening with calcification. Ion Jones MD Chest X-Ray 11/12/172220 Signed Impressions: Service Date/Time: Sunday, November 12, 2017 23:07 - CONCLUSION: No focal infiltrates seen. Mild indistinctness of the central bronchopulmonary markings stable from prior. Delvis Cage MD Capchristiano VTE Risk Assessment Caprini VTE Risk Assessment: Mod/High Risk (score >= 2) Caprini Risk Assessment Model Point Value = 1 Point Value = 2 Point Value = 3 Point Value = 5 Age 41-60 Minor surgery BMI > 25 kg/m2 Swollen legs Varicose veins or History of unexplained or recurrent spontaneous Oral contraceptives or hormone replacement Sepsis (< 1 month) Serious lung disease, including pneumonia (< 1 month) Abnormal pulmonary function Acute myocardial infarction Congestive heart failure (< 1 month) History of inflammatory bowel disease Medical patient at bed rest Age 61-74 Arthroscopic surgery Major open surgery (> 45 min) Laparoscopic surgery (> 45 min) Malignancy Confined to bed (> 72 hours) Immobilizing plaster cast Central venous access Age >= 75 History of VTE Family history of VTE Factor V Leiden Prothrombin [id number] Lupus anticoagulant Anticardiolipin antibodies Elevated serum homocysteine Heparin-induced thrombocytopenia Other congenital or acquired thrombophilia Stroke (< 1 month) Elective arthroplasty Hip, pelvis, or leg fracture Acute spinal cord injury (< 1 month) Prophylaxis Regimen Total Risk Factor Score Risk Level Prophylaxis Regimen 0-1 Low Early ambulation 2 Moderate Order ONE of the following: *Sequential Compression Device (SCD) *Heparin 5000 units SQ BID 3-4 Higher Order ONE of the following medications: *Heparin 5000 units SQ TID *Enoxaparin/Lovenox 40 mg SQ daily (WT < 150 kg, CrCl > 30 mL/min) *Enoxaparin/Lovenox 30 mg SQ daily (WT < 150 kg, CrCl > 10-29 mL/min) *Enoxaparin/Lovenox 30 mg SQ BID (WT < 150 kg, CrCl > 30 mL/min) AND/OR *Sequential Compression Device (SCD) 5 or more Highest Order ONE of the following medications: *Heparin 5000 units SQ TID (Preferred with Epidurals) *Enoxaparin/Lovenox 40 mg SQ daily (WT < 150 kg, CrCl > 30 mL/min) *Enoxaparin/Lovenox 30 mg SQ daily (WT < 150 kg, CrCl > 10-29 mL/min) *Enoxaparin/Lovenox 30 mg SQ BID (WT < 150 kg, CrCl > 30 mL/min) AND *Sequential Compression Device (SCD) Assessment and Plan Assessment and Plan //Influenza pneumonia //COPD exacerbation //Hypercapnic respiratory failure -Positive influenza. =CO2 in the 50s on ABG on admission = Discontinue chronic narcotics = Continue antibiotics -duo nebs. -prednisone 20 twice daily = Monitor for improvement. //Possible CHF exacerbation //History of CAD BNP in the 900s on admission. -Continue aspirin, beta zoraida = Monitor fluid status closely. -QRS complex is 208, and if ejection fraction is down and patient thought to be symptomatic from this, could benefit from AV optimization. Follow-up echocardiogram. Appreciate cardiology assistance. //Atrial fibrillation with pacer Continue beta zoraida, switched to metoprolol by cardiology Anticoagulation as per cardiology. //Chronic pain. With hypercapnia respiratory failure will hold off on methadone for now. Watch for signs of withdrawal. //Chronic anxiety. Continue lorazepam as needed. //Apparent history of frequent urination = Elderly males should not be on oxybutynin. will stop this. //Chronic dementia. Reorient frequently. Would consider quetiapine if becomes agitated. //DVT prophylaxis. Patient has been placed on the Apixaban Discussed Condition With patient, nurse Physician Certification 2 Midnight Certification Type: Admission for Inpatient Services Order for Inpatient Services The services are ordered in accordance with Medicare regulations or non- Medicare payer requirements, as applicable. In the case of services not specified as inpatient-only, they are appropriately provided as inpatient services in accordance with the 2-midnight benchmark. Estimated LOS (days): 3 days is the estimated time the patient will need to remain in the hospital, assuming treatment plan goals are met and no additional complications. Post-Hospital Plan: SNF Yemi Morales MD Nov 13, 2017 21:01
[2017-11-13] MEDS: RESP: ALBUTEROL 2.5 MG/IPRATROPIUM 0.5 MG NEB (SCH) NEB (21:07)
[2017-11-13] MEDS: APIXABAN 5 MG TABLET PO SCH (22:44)
[2017-11-13] MEDS: predniSONE 20 MG TAB PO SCH (22:45)
[2017-11-13] MEDS: OSELTAMIVIR PHOSPHATE 75 MG CAP PO SCH (22:45)
[2017-11-13] MEDS: VANCOMYCIN INJ 1,500 MG in SODIUM CHLORID 0.9% 500 ML INJ 500 ML IV SCH (23:35)
[2017-11-14] VITALS (13 sets, daily range): BP systolic 126–209; BP diastolic 70–98; PULSE 67–76; RESP 16–30; TEMP 98.6–98.8; O2SAT 80–100
[2017-11-14] MEDS: PIPERACIL-TAZO 4.5 GM PREMIX 100 ML IV SCH ×4 (00:54→17:23)
[2017-11-14] MEDS: RESP: ALBUTEROL 2.5 MG/IPRATROPIUM 0.5 MG NEB (SCH) NEB ×4 (03:10→21:17)
[2017-11-14] MEDS ORDERED: RESP: ALBUTEROL 2.5 MG/IPRATROPIUM 0.5 MG NEB (SCH) NEB ONE (05:45)
--- NOTE | 2017-11-14 06:23 | RADRPT ---
EXAM DATE/TIME: 11/14/2017 05:54 [place] COMPARISON: CT PULMONARY ANGIOGRAM, November 13, 2017, 1:39. CHEST SINGLE AP, November 12, 2017, 23:07. INDICATIONS : Shortness of breath. MEDICAL HISTORY : Cardiovascular disease. SURGICAL HISTORY : Pacemaker. CABG. ENCOUNTER: Subsequent ACUITY: 3 days PAIN SCORE: 0/10 LOCATION: Bilateral chest FINDINGS: Portable AP view of the chest demonstrates a normal-sized cardiac silhouette in this patient post med chasity sternotomy and valve replacement. There is severe calcification of a tortuous descending thoracic aorta. Left chest wall cardiac pacing device remains present. There is stable elevation of the right hemidiaphragm. No effusion or pneumothorax is appreciated. There is mild patchy airspace opacity in the right mid and lower lung zone. Bones demonstrate no acute finding. CONCLUSION: Stable chest x-ray with subtle patchy airspace opacities in the mid and lower lung zone on the right. Ion Jones MD on November 14, 2017 at 6:19 Board Certified Radiologist. This report was verified electronically.
[2017-11-14 07:59] LABS: AUTOMATED NEUTROPHIL # 13.7 TH/MM3 (1.8-7.7); BASOPHIL % 0.1 % (0.0-2.0); HEMATOCRIT 28.8 % (39.0-51.0); HEMOGLOBIN 9.5 GM/DL (13.0-17.0); LYMPH % 2.2 % (9.0-44.0); LYMPHOCYTE # 0.3 TH/MM3 (1.0-4.8); MEAN CELL VOLUME 85.7 FL (80.0-100.0); MEAN CORPUSCULAR HEMOGLOBIN 28.2 PG (27.0-34.0); MEAN CORPUSCULAR HGB CONC 32.9 % (32.0-36.0); MEAN PLATELET VOLUME 7.6 FL (7.0-11.0); MONO % 6.9 % (0.0-8.0); NEUT % 90.8 % (16.0-70.0); PLATELET COUNT 181 TH/MM3 (150-450); RED BLOOD COUNT 3.36 MIL/MM3 (4.50-5.90); WHITE BLOOD COUNT 15.1 TH/MM3 (4.0-11.0)
[2017-11-14 08:20] LABS: BICARBONATE 35.4 MEQ/L (21.0-32.0); CALCIUM 8.4 MG/DL (8.5-10.1); CREATININE 1.26 MG/DL (0.60-1.30)
[2017-11-14] MEDS: DOCUSATE SODIUM 50 MG/SENNA 8.6 MG TAB PO SCH ×2 (09:35→20:09)
[2017-11-14] MEDS: SERTRALINE HCL 100 MG TAB PO SCH (09:35)
[2017-11-14] MEDS: predniSONE 20 MG TAB PO SCH ×2 (09:35→20:09)
[2017-11-14] MEDS: APIXABAN 5 MG TABLET PO SCH ×2 (09:35→20:11)
[2017-11-14] MEDS: SODIUM CHLORIDE 0.9% FLUSH 10 ML FLUSH IV FLUSH SCH ×2 (09:36→20:10)
--- NOTE | 2017-11-14 09:50 | ECHRPT ---
Indication: SHORTNESS OF BREATH CONCLUSIONS The left ventricular systolic function is normal with an estimated ejection fraction in the range of 60%.normal left ventricular size. Mild concentric left ventricular hypertrophy. No regional wall motion abnormalities are present. Trace mitral valve regurgitation. Moderate thickening of the aortic valve leaflets. Mild-moderate aortic valve regurgitation. Mild aortic valve stenosis. Aortic valve area is 1.7 cm. Aortic valve mean gradient is 15 mmHg. There is mild to moderate tricuspid valve regurgitation. The estimated pulmonary arterial pressure is 69 mmHg. BP: 167 / 75 HR: 63 Rhythm: Sinus MEASUREMENTS (Male / Female) Normal Values Technical Quality:Good 2D ECHO LV Diastolic Diameter PLAX 4.8 cm 4.2 - 5.9 / 3.9 - 5.3 cm LV Systolic Diameter PLAX 3.4 cm IVS Diastolic Thickness 1.3 cm 0.6 - 1.0 / 0.6 - 0.9 cm LVPW Diastolic Thickness 1.3 cm 0.6 - 1.0 / 0.6 - 0.9 cm LV Relative Wall Thickness 0.5 RV Internal Dim ED PLAX 3.2 cm LVOT Diameter 2.2 cm LA Systolic Diameter LX 4.0 cm 3.0 - 4.0 / 2.7 - 3.8 cm LV Ejection Fraction MOD 4C 60.9 % LV Cardiac Index MOD 4C 1801.1 cm/minm LV Ejection Fraction 4C AL 63.9 % LV Cardiac Index 4C AL 1978.0 cm/minm DOPPLER AV Peak Velocity 259.5 cm/s AV Peak Gradient 26.9 mmHg AV Mean Gradient 15.0 mmHg AV Velocity Time Integral 49.4 cm AI Peak Velocity 555.5 cm/s AI Peak Gradient 123.4 mmHg AI Pressure Half Time 647.5 ms LVOT Peak Velocity 130.0 cm/s LVOT Peak Gradient 6.8 mmHg LVOT Velocity Time Integral 22.3 cm LVOT Cardiac Index 2726.4 cm/minm AV Area Cont Eq vti 1.7 cm AV Area Cont Eq pk 1.9 cm MV Area PHT 5.6 cm Mitral E Point Velocity 123.0 cm/s Mitral A Point Velocity 37.5 cm/s Mitral E to A Ratio 3.3 TR Peak Velocity 384.0 cm/s TR Peak Gradient 59.0 mmHg Right Atrial Pressure 10.0 mmHg Pulmonary Artery Systolic Pressu 69.0 mmHg Right Ventricular Systolic Press 69.0 mmHg PV Peak Velocity 92.3 cm/s PV Peak Gradient 3.4 mmHg FINDINGS LEFT VENTRICLE The left ventricular systolic function is normal with an estimated ejection fraction in the range of 60%.normal left ventricular size. Mild concentric left ventricular hypertrophy. No regional wall motion abnormalities are present. RIGHT VENTRICLE A pacemaker wire is noted. LEFT ATRIUM The left atrial size is normal. RIGHT ATRIUM There is a pacemaker wire present in the right atrial cavity. ATRIAL SEPTUM Normal atrial septal thickness without atrial level shunting by limited color doppler interrogation. AORTA The aortic root and proximal ascending aorta are normal in size on limited imaging. MITRAL VALVE Structurally normal mitral valve. Trace mitral valve regurgitation. AORTIC VALVE Trileaflet aortic valve. Moderate thickening of the aortic valve leaflets. Mild-moderate aortic valve regurgitation. Mild aortic valve stenosis. Aortic valve area is 1.7 cm. Aortic valve mean gradient is 15 mmHg. TRICUSPID VALVE Structurally normal tricuspid valve. There is mild to moderate tricuspid valve regurgitation. The estimated pulmonary arterial pressure is 69 mmHg. PULMONARY VALVE No pulmonary valve regurgitation or stenosis. VESSELS The inferior vena cava is normal in size. PERICARDIUM No pericardial effusion. Ortega Wu MD (Electronically Signed) Final Date:14 November 2017 09:49
[2017-11-14] MEDS: OSELTAMIVIR PHOSPHATE 75 MG CAP PO SCH ×2 (09:58→20:09)
--- NOTE | 2017-11-14 14:36 | HHI.PR ---
Subjective Remarks Follow-up for COPD exacerbation, possible pneumonia, atrial fibrillation. Patient is currently on BiPAP. He is tolerating BiPAP well. However he would like to take it off to eat. Per RN, whenever they take the BiPAP off his oxygen saturation dips down in the 70s and 80s. Objective Vitals Vital Signs Date Time Temp Pulse Resp B/P (MAP) Pulse Ox O2 Delivery O2 Flow Rate FiO2 11/14/17 12:00 69 11/14/17 12:00 98.7 71 19 126/70 (88) 94 11/14/17 10:49 93 30 11/14/17 10:34 97 Nasal Cannula 1.00 11/14/17 10:00 74 11/14/17 09:00 100 40 11/14/17 09:00 98.6 70 23 135/70 (91) 99 11/14/17 08:30 98 Bi-Pap 40 11/14/17 06:12 93 60 11/14/17 05:44 24 160/84 (109) 98 11/14/17 05:33 70 28 209/98 (135) 80 11/14/17 04:59 98.8 67 16 157/93 (114) 97 11/14/17 01:59 Nasal Cannula 3.00 11/13/17 23:05 97.9 67 16 182/92 (122) 93 11/13/17 21:09 98 Nasal Cannula 3.00 11/13/17 18:52 98.5 64 12 144/79 (100) 93 I/O 11/13/17 11/13/17 11/13/17 11/14/17 11/14/17 11/14/17 07:00 15:00 23:00 07:00 15:00 23:00 Intake Total 500 ml 100 ml 300 ml 100 ml Output Total 1700 ml Balance -1200 ml 100 ml 300 ml 100 ml Intake Oral 200 ml 200 ml IV Total 300 ml 100 ml 100 ml 100 ml Output Urine Total 1700 ml # Voids 1 Result Diagram: 11/14/17 0744 11/14/17 0744 Imaging Last Impressions Chest X-Ray 11/14/17 0000 Signed Impressions: Service Date/Time: November 05:54 - CONCLUSION: Stable chest x-ray with subtle patchy airspace opacities in the mid and lower lung zone on the right. Ion Jones MD CT Angiography 11/13/17 0000 Signed Impressions: Service Date/Time: Monday, November 13, 2017 01:39 - CONCLUSION: 1. No PE is identified. 2. Patchy airspace consolidation in the right upper lobe suggesting an infectious or inflammatory process. 3. 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 The presumed penetrating atherosclerotic ulcer adjacent to the distal ascending arch is stable. 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 4. Stable right lower lobe round atelectasis versus parenchymal scar and chronic pleural thickening with calcification. Ion Jones MD Objective Remarks GENERAL: Alert, NAD. Currently on BiPAP machine. SKIN: Warm and dry. HEAD: Normocephalic. EYES: No scleral icterus. No injection or drainage. NECK: Supple, trachea midline. No JVD or lymphadenopathy. CARDIOVASCULAR: Regular rate and rhythm without murmurs, gallops, or rubs. RESPIRATORY: Poor air entry, no appreciable wheezing or crackles. No accessory muscle use. GASTROINTESTINAL: Abdomen soft, non-tender, nondistended. MUSCULOSKELETAL: No cyanosis, or edema. BACK: Nontender without obvious deformity. No CVA tenderness. Procedures Echocardiogram 11/13/2017 The left ventricular systolic function is normal with an estimated ejection fraction in the range of 60%.normal left ventricular size. Mild concentric left ventricular hypertrophy. No regional wall motion abnormalities are present. Trace mitral valve regurgitation. Moderate thickening of the aortic valve leaflets. Mild-moderate aortic valve regurgitation. Mild aortic valve stenosis. Aortic valve area is 1.7 cm. Aortic valve mean gradient is 15 mmHg. There is mild to moderate tricuspid valve regurgitation. The estimated pulmonary arterial pressure is 69 mmHg. A/P Problem List: (1) COPD exacerbation ICD Code: J44.1 - Chronic obstructive pulmonary disease with (acute) exacerbation Status: Acute (2) PNA (pneumonia) ICD Code: J18.9 - Pneumonia, unspecified organism Status: Acute Assessment and Plan Mr. Gooden is a pleasant 82-year-old male with a history of coronary artery disease, aortic aneurysm, dual-chamber AICD who was admitted to the hospital from group home due to shortness of breath. Patient also has history of Alzheimer's dementia. Patient denied any chest pain, orthopnea, leg edema. Blood gas on 11/14/2017 shows PCO2 increased from 55---> 88. -Acute hypercapnic respiratory failure -Probable pneumonia right lung -Acute COPD exacerbation -Pulmonary hypertension likely due to COPD -Patient is currently on Zosyn and vancomycin. -Continue DuoNeb, BiPAP as needed. -Prednisone 20 mg p.o. twice daily -Supplemental oxygen to keep O2 saturation above 90% -Long use of BiPAP is concerning. -We will consult palliative care for end-stage COPD, dementia. - Influenza type A -Continue Tamiflu 75 mg twice daily. -Atrial fibrillation -Cardiology indicated initiating metoprolol tartrate. We will start metoprolol 25 mg every 12 hours -Patient is currently on apixaban 5 mg twice daily. However patient is above 80, weight 65.6 kg and creatinine 1.26. -We can probably reduce apixaban to 2.5 mg twice daily. -Anxiety/Depression -Continue Zoloft and Ativan as needed. DNR. Apixaban. Anderson Domínguez DO Nov 14, 2017 14:36
[2017-11-14] MEDS: VANCOMYCIN INJ 1,500 MG in SODIUM CHLORID 0.9% 500 ML INJ 500 ML IV SCH (23:35)
[2017-11-14] MEDS: METOPROLOL TARTRATE 25 MG TAB PO SCH (23:35)
[2017-11-15 00:28] VITALS: BP 148/72; PULSE 71; RESP 20; TEMP 97.6; O2SAT 95
[2017-11-15] MEDS: LORazepam 0.5 MG TAB PO PRN ×2 (00:42→07:49)
[2017-11-15] MEDS: PIPERACIL-TAZO 4.5 GM PREMIX 100 ML IV SCH ×3 (02:21→11:21)
[2017-11-15] MEDS: RESP: ALBUTEROL 2.5 MG/IPRATROPIUM 0.5 MG NEB (SCH) NEB ×3 (02:25→15:13)
[2017-11-15 05:08] VITALS: BP 147/67; PULSE 76; RESP 20; TEMP 98; O2SAT 95
[2017-11-15] MEDS: SODIUM CHLORIDE 0.9% FLUSH 10 ML FLUSH IV FLUSH SCH (07:48)
[2017-11-15] MEDS: METOPROLOL TARTRATE 25 MG TAB PO SCH (07:49)
[2017-11-15] MEDS: APIXABAN 5 MG TABLET PO SCH (07:49)
[2017-11-15] MEDS: predniSONE 20 MG TAB PO SCH (07:50)
[2017-11-15] MEDS: SERTRALINE HCL 100 MG TAB PO SCH (07:50)
[2017-11-15] MEDS: DOCUSATE SODIUM 50 MG/SENNA 8.6 MG TAB PO SCH (07:50)
[2017-11-15 08:00] VITALS: BP 184/97; PULSE 75; RESP 20; TEMP 98; O2SAT 92
--- NOTE | 2017-11-15 08:07 | PD.CARD.PN ---
Subjective Subjective Remarks Patient is very confused - loud talking that makes no sense Objective Medications Current Medications Medications (Trade) Dose Ordered Sig/Renetta Route Start Time Stop Time Status Last Admin Piperacillin Sod/ Tazobactam Sod 100 ml @ 200 mls/hr Q6H IV 11/13/17 06:00 11/15/17 05:55 Pharmacy Profile Note 0 ml @ 0 mls/hr UNSCH OTHER 11/13/17 02:30 (NS Flush) 2 ml UNSCH PRN IV FLUSH 11/13/17 02:30 (NS Flush) 2 ml BID IV FLUSH 11/13/17 09:00 11/14/17 20:10 (Tylenol) 650 mg Q4H PRN PO 11/13/17 02:30 11/14/17 20:10 (Zofran Inj) 4 mg Q6H PRN IVP 11/13/17 02:30 (Narcan Inj) 0.4 mg UNSCH PRN IV PUSH 11/13/17 02:30 (Natividad-Colace) 1 tab BID PO 11/13/17 09:00 11/15/17 07:50 (Milk Of Magnesia Liq) 30 ml Q12H PRN PO 11/13/17 02:30 (Senokot) 17.2 mg Q12H PRN PO 11/13/17 02:30 (Dulcolax Supp) 10 mg DAILY PRN RECTAL 11/13/17 02:30 (Lactulose Liq) 30 ml DAILY PRN PO 11/13/17 02:30 (Ativan) 0.5 mg Q6H PRN PO 11/13/17 02:30 11/15/17 07:49 (Zoloft) 100 mg DAILY PO 11/13/17 09:00 11/15/17 07:50 Vancomycin HCl 1500 mg/Sodium Chloride 515 ml @ 257.5 mls/ hr Q24H IV 11/13/17 21:00 11/14/17 23:35 Miscellaneous Information SPECIFIC LAB TO BE [facility]... ONCE ONCE .XX 11/15/17 20:45 11/15/17 20:46 (Eliquis) 5 mg BID PO 11/13/17 21:00 11/15/17 07:49 (Tamiflu) 75 mg BID PO 11/13/17 21:00 11/14/17 20:09 (Duoneb Neb) 1 ampule Q6HR NEB NEB 11/13/17 22:00 11/15/17 02:25 (Deltasone) 20 mg BID PO 11/13/17 21:00 11/15/17 07:50 (Lopressor) 25 mg Q12HR PO 11/14/17 21:00 11/15/17 07:49 Vital Signs / I&O Vital Signs Date Time Temp Pulse Resp B/P (MAP) Pulse Ox O2 Delivery O2 Flow Rate FiO2 11/15/17 05:08 98.0 76 20 147/67 (93) 95 11/15/17 00:28 97.6 71 20 148/72 (97) 95 11/14/17 21:17 96 Nasal Cannula 2.00 11/14/17 21:15 76 30 169/88 (115) 96 11/14/17 20:50 Nasal Cannula 2.00 11/14/17 16:13 97 Nasal Cannula 2.00 11/14/17 16:00 98.6 69 20 160/76 (104) 95 11/14/17 16:00 69 11/14/17 12:00 69 11/14/17 12:00 98.7 71 19 126/70 (88) 94 11/14/17 10:49 93 30 11/14/17 10:34 97 Nasal Cannula 1.00 11/14/17 10:00 74 11/14/17 09:00 100 40 11/14/17 09:00 98.6 70 23 135/70 (91) 99 11/14/17 08:30 98 Bi-Pap 40 I/O 11/14/17 11/14/17 11/14/17 11/15/17 11/15/17 11/15/17 07:00 15:00 23:00 07:00 15:00 23:00 Intake Total 100 ml Output Total 600 ml Balance 100 ml -600 ml IV Total 100 ml Output Urine Total 600 ml # Voids 1 Physical Exam alert Chest B/L rhonchi CV S1S2 RRR, not on tele Abd soft Ext no edema Laboratory Microbiology Date/Time Source Procedure Growth Status 11/12/17 23:40 Blood Peripheral Aerobic Blood Culture - Preliminary NO GROWTH IN 2 DAYS Resulted 11/12/17 23:40 Blood Peripheral Anaerobic Blood Culture - Preliminary NO GROWTH IN 2 DAYS Resulted 11/13/17 01:55 Nasal Washing Influenza Types A,B Antigen ([facility]) - Final Positive For Flu A Antigen Complete Imaging Last 48 hours Impressions Chest X-Ray 11/14/17 0000 Signed Impressions: Service Date/Time: November 05:54 - CONCLUSION: Stable chest x-ray with subtle patchy airspace opacities in the mid and lower lung zone on the right. Ion Jones MD Assessment and Plan Problem List: (1) COPD (chronic obstructive pulmonary disease) ICD Codes: J44.9 - Chronic obstructive pulmonary disease, unspecified Status: Chronic (2) CAD (coronary artery disease) ICD Codes: I25.10 - Coronary artery disease Status: Chronic (3) History of atrial fibrillation ICD Codes: Z86.79 - Personal history of other diseases of the circulatory system Plan: Cont Eliquis 5mg bid Assessment and Plan I will sign off/ see Ortega Larsen MD Nov 15, 2017 08:07
[2017-11-15] MEDS ORDERED: RESP: ALBUTEROL 1.25 MG/3 ML NEB (PRN) NEB (08:15)
--- NOTE | 2017-11-15 08:17 | HHI.PR ---
Subjective Remarks awake but confused. with some sob and at times tachypneic. no fever. d/w the RN. Objective Vitals Vital Signs Date Time Temp Pulse Resp B/P (MAP) Pulse Ox O2 Delivery O2 Flow Rate FiO2 11/15/17 05:08 98.0 76 20 147/67 (93) 95 11/15/17 00:28 97.6 71 20 148/72 (97) 95 11/14/17 21:17 96 Nasal Cannula 2.00 11/14/17 21:15 76 30 169/88 (115) 96 11/14/17 20:50 Nasal Cannula 2.00 11/14/17 16:13 97 Nasal Cannula 2.00 11/14/17 16:00 98.6 69 20 160/76 (104) 95 11/14/17 16:00 69 11/14/17 12:00 69 11/14/17 12:00 98.7 71 19 126/70 (88) 94 11/14/17 10:49 93 30 11/14/17 10:34 97 Nasal Cannula 1.00 11/14/17 10:00 74 11/14/17 09:00 100 40 11/14/17 09:00 98.6 70 23 135/70 (91) 99 11/14/17 08:30 98 Bi-Pap 40 I/O 11/14/17 11/14/17 11/14/17 11/15/17 11/15/17 11/15/17 07:00 15:00 23:00 07:00 15:00 23:00 Intake Total 100 ml Output Total 600 ml Balance 100 ml -600 ml IV Total 100 ml Output Urine Total 600 ml # Voids 1 Result Diagram: 11/14/17 0744 11/14/17 0744 Imaging Last Impressions Chest X-Ray 11/14/17 0000 Signed Impressions: Service Date/Time: November 05:54 - CONCLUSION: Stable chest x-ray with subtle patchy airspace opacities in the mid and lower lung zone on the right. Ion Jones MD CT Angiography 11/13/17 0000 Signed Impressions: Service Date/Time: Monday, November 13, 2017 01:39 - CONCLUSION: 1. No PE is identified. 2. Patchy airspace consolidation in the right upper lobe suggesting an infectious or inflammatory process. 3. 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 The presumed penetrating atherosclerotic ulcer adjacent to the distal ascending arch is stable. 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 4. Stable right lower lobe round atelectasis versus parenchymal scar and chronic pleural thickening with calcification. Ion Jones MD Objective Remarks GENERAL: elderly male, in no apparent distress. CARDIOVASCULAR: Regular rate and regular rhythm without murmurs, gallops, or rubs. RESPIRATORY: bilateral rales GASTROINTESTINAL: Abdomen soft, non-tender, nondistended. Normal, active bowel sounds MUSCULOSKELETAL: Extremities without clubbing, cyanosis, or edema. NEURO: awake but confused. Procedures Echocardiogram 11/13/2017 The left ventricular systolic function is normal with an estimated ejection fraction in the range of 60%.normal left ventricular size. Mild concentric left ventricular hypertrophy. No regional wall motion abnormalities are present. Trace mitral valve regurgitation. Moderate thickening of the aortic valve leaflets. Mild-moderate aortic valve regurgitation. Mild aortic valve stenosis. Aortic valve area is 1.7 cm. Aortic valve mean gradient is 15 mmHg. There is mild to moderate tricuspid valve regurgitation. The estimated pulmonary arterial pressure is 69 mmHg. Medications and IVs Inpatient Medications Acetaminophen (Tylenol) 650 mg Q4H PRN PO TEMP > 100.4 Last administered on 11/14at 20:10; Start 11/13/17 at 02:30 Albuterol/ Ipratropium (Duoneb Neb) 1 ampule ONCE ONCE NEB Last administered on 11/14/17 05:42; Start 11/14/17 at 05:45; Stop 11/14/17 at 05:46; Status DC Apixaban (Eliquis) 5 mg BID PO Last administered on 11/15/17at 07:49; Start at 21:00 Aspirin (Aspirin) 325 mg DAILY PO Last administered on 11/13/17at 11:19; Start at 09:00; Stop 11/13/17 at 13:06; Status DC Bisacodyl (Dulcolax Supp) 10 mg DAILY PRN RECTAL SEVERE CONSITIPATION; Start at 02:30 Carvedilol (Coreg) 25 mg BID PO Last administered on 11/13/17at 11:21; Start 11/13 at 09:00; Stop 11/13/17 at 13:06; Status DC Furosemide (Lasix Inj) 40 mg ONCE ONCE IV PUSH Last administered on 11/13/17at 02:52; Start 11/13/17 at 02:30; Stop 11/13/17 at 02:42; Status DC Heparin Sodium (Porcine) (Heparin Inj) 5,000 units Q12H SQ Last administered on 11/13/17at 18:49; Start 11/13/17 at 06:00; Stop 11/13/17 at 20:55; Status DC Lactulose (Lactulose Liq) 30 ml DAILY PRN PO SEVERE CONSITIPATION; Start at 02:30 Lorazepam (Ativan) 0.5 mg Q6H PRN PO ANXIETY Last administered on 11/15/17at 07: 49; Start 11/13/17 at 02:30 Magnesium Hydroxide (Milk Of Magnesia Liq) 30 ml Q12H PRN PO Mild constipation ; Start 11/13/17 at 02:30 Methadone HCl (Dolophine) 2.5 mg TID PO ; Start 11/13/17 at 09:00; Stop 11/13/17 at 09:00; Status DC Metoprolol Tartrate (Lopressor) 25 mg Q12HR PO Last administered on 11/15/17at 07 :49; Start 11/14/17 at 21:00 Miscellaneous Information SPECIFIC LAB TO BE [facility]... ONCE ONCE .XX ; Start at 20:45; Stop 11/15/17 at 20:46 Naloxone HCl (Narcan Inj) 0.4 mg UNSCH PRN IV PUSH SEE LABEL COMMENTS; Start at 02:30 Ondansetron HCl (Zofran Inj) 4 mg Q6H PRN IVP NAUSEA OR VOMITING; Start at 02:30 Oseltamivir Phosphate (Tamiflu) 75 mg BID PO Last administered on 11/14/17at 20: 09; Start 11/13/17 at 21:00 Oxybutynin Chloride (Ditropan) 5 mg Q12HR PO ; Start 11/13/17 at 09:00; Stop 11/13 at 09:00; Status DC Pharmacy Profile Note 0 ml @ 0 mls/hr UNSCH OTHER ; Start 11/13/17 at 02:30 Piperacillin Sod/ Tazobactam Sod 100 ml @ 200 mls/hr Q6H IV Last administered on 11/15/17at 05:55; Start 11/13/17 at 06:00 Prednisone (Deltasone) 20 mg BID PO Last administered on 11/15/17at 07:50; Start 11/13/17 at 21:00 Senna/Docusate Sodium (Natividad-Colace) 1 tab BID PO Last administered on 11/15/17at 07:50; Start 11/13/17 at 09:00 Sennosides (Senokot) 17.2 mg Q12H PRN PO Moderate constipation; Start 11/13/17 at 02:30 Sertraline HCl (Zoloft) 100 mg DAILY PO Last administered on 11/15/17at 07:50; Start 11/13/17 at 09:00 Sodium Chloride (NS Flush) 2 ml BID IV FLUSH Last administered on 11/14/17at 20: 10; Start 11/13/17 at 09:00 Vancomycin HCl 1000 mg/Sodium Chloride 250 ml @ 250 mls/hr ONCE ONCE IV Last administered on 11/13/17at 03:16; Start 11/13/17 at 03:00; Stop 11/13/17 at 03:59; Status DC Vancomycin HCl 1500 mg/Sodium Chloride 515 ml @ 257.5 mls/ hr Q24H IV Last administered on 11/14/17at 23:35; Start 11/13/17 at 21:00 A/P Problem List: (1) COPD exacerbation ICD Code: J44.1 - Chronic obstructive pulmonary disease with (acute) exacerbation Status: Acute (2) PNA (pneumonia) ICD Code: J18.9 - Pneumonia, unspecified organism Status: Acute Assessment and Plan -Acute hypercapnic respiratory failure -Probable pneumonia right lung -Acute COPD exacerbation -Pulmonary hypertension likely due to COPD -Patient is currently on Zosyn and vancomycin. -Continue DuoNeb, BiPAP as needed. -Prednisone 20 mg p.o. twice daily -Supplemental oxygen to keep O2 saturation above 90% -repeat ABG today. - consulted palliative care for end-stage COPD, dementia. - Influenza type A -Continue Tamiflu 75 mg twice daily. -Atrial fibrillation - started on metoprolol 25 mg every 12 hours -Patient is currently on apixaban 5 mg twice daily. However patient is above 80, weight 65.6 kg and creatinine 1.26. -Anxiety/Depression -Continue Zoloft and Ativan as neede Discharge Planning d/w the palliative care. plan to dc back to [facility] hospice. d/w the RN and case management. time spent 35 min. Rinku Chew MD Nov 15, 2017 08:17
[2017-11-15] MEDS: OSELTAMIVIR PHOSPHATE 75 MG CAP PO SCH (09:06)
[2017-11-15 09:40] VITALS: O2SAT 92
[2017-11-15] MEDS ORDERED: METO25TA3 PO (11:32)
[2017-11-15] MEDS ORDERED: Albuterol-Ipratropium Neb NEB (11:32)
[2017-11-15] MEDS ORDERED: OSEL75 PO (11:32)
[2017-11-15] MEDS ORDERED: APIX2.5T PO (11:37)
[2017-11-15] MEDS ORDERED: PRED5TAB PO (11:37)
[2017-11-15] MEDS ORDERED: LEVA500T33 PO (11:39)
--- NOTE | 2017-11-15 11:42 | HHI.DS ---
Discharge Summary Admission Date Nov 13, 2017 at 02:29 Discharge Date: Nov 15, 2017 Admitting Diagnosis Pneumonia, COPD Exacerbation, CHF (1) COPD exacerbation ICD Code: J44.1 - Chronic obstructive pulmonary disease with (acute) exacerbation Diagnosis: Principal Status: Acute (2) PNA (pneumonia) ICD Code: J18.9 - Pneumonia, unspecified organism Diagnosis: Principal Status: Acute Procedures Echocardiogram 11/13/2017 The left ventricular systolic function is normal with an estimated ejection fraction in the range of 60%.normal left ventricular size. Mild concentric left ventricular hypertrophy. No regional wall motion abnormalities are present. Trace mitral valve regurgitation. Moderate thickening of the aortic valve leaflets. Mild-moderate aortic valve regurgitation. Mild aortic valve stenosis. Aortic valve area is 1.7 cm. Aortic valve mean gradient is 15 mmHg. There is mild to moderate tricuspid valve regurgitation. The estimated pulmonary arterial pressure is 69 mmHg. Brief History - From Admission 82 yo Male with dementia who sent in from [facility] facility sent in for shortness of breath. History is severely limited by what appears to be chronic dementia. Patient is pleasant but is uncertain why he is here. Patient says he does feel short of breath, deduces that he must be here in a hospital because of his shortness of breath. He denies any chest pain.he has no other complaintsat the time of examination. Denies any nausea, vomiting, lightheadedness, dizziness, fevers, chills. CBC/BMP: 11/14/17 0744 11/14/17 0744 Significant Findings Laboratory Tests Test 11/12/17 22:20 11/12/17 22:30 11/13/17 01:50 11/14/17 05:41 White Blood Count 14.1 TH/MM3 (4.0-11.0) Red Blood Count 3.49 MIL/MM3 (4.50-5.90) Hemoglobin 9.9 GM/DL (13.0-17.0) Hematocrit 29.8 % (39.0-51.0) Neutrophils (%) (Auto) 85.2 % (16.0-70.0) Lymphocytes (%) (Auto) 5.6 % (9.0-44.0) Monocytes (%) (Auto) 8.3 % (0.0-8.0) Neutrophils # (Auto) 12.0 TH/MM3 (1.8-7.7) Lymphocytes # (Auto) 0.8 TH/MM3 (1.0-4.8) Monocytes # (Auto) 1.2 TH/MM3 (0-0.9) D-Dimer Quantitative (PE/DVT) 9.98 MG/L FEU (0.00-0.50) Blood Urea Nitrogen 22 MG/DL (7-18) Random Glucose 116 MG/DL (74-106) Calcium Level 8.4 MG/DL (8.5-10.1) Anion Gap 4 MEQ/L (5-15) Estimat Glomerular Filtration Rate 69 ML/MIN (>89) Troponin I LESS THAN 0.02 NG/ML B-Type Natriuretic Peptide 929 PG/ML (0-100) Blood Gas HCO3 28 mmol/L (22-26) 34 mmol/L (22-26) Blood Gas Base Excess 2.4 mmol/L (-2-2) 6.1 mmol/L (-2-2) Arterial Blood pH 7.33 (7.380-7.420) 7.21 (7.380-7.420) Arterial Blood Partial Pressure CO2 55 mmHg (38-42) 88 mmHg (38-42) Blood Gas Hemoglobin 9.1 G/DL (12.0-16.0) 9.7 G/DL (12.0-16.0) Urine Occult Blood MOD (NEG) Urine Mucus FEW /lpf (OCC) Arterial Blood Partial Pressure O2 127 mmHG (61-120) Test 11/14/17 07:44 11/15/17 10:00 White Blood Count 15.1 TH/MM3 (4.0-11.0) Red Blood Count 3.36 MIL/MM3 (4.50-5.90) Hemoglobin 9.5 GM/DL (13.0-17.0) Hematocrit 28.8 % (39.0-51.0) Neutrophils (%) (Auto) 90.8 % (16.0-70.0) Lymphocytes (%) (Auto) 2.2 % (9.0-44.0) Neutrophils # (Auto) 13.7 TH/MM3 (1.8-7.7) Lymphocytes # (Auto) 0.3 TH/MM3 (1.0-4.8) Monocytes # (Auto) 1.0 TH/MM3 (0-0.9) Blood Urea Nitrogen 37 MG/DL (7-18) Random Glucose 135 MG/DL (74-106) Calcium Level 8.4 MG/DL (8.5-10.1) Carbon Dioxide Level 35.4 MEQ/L (21.0-32.0) Estimat Glomerular Filtration Rate 55 ML/MIN (>89) Blood Gas HCO3 34 mmol/L (22-26) Blood Gas Base Excess 7.5 mmol/L (-2-2) Blood Gas Oxygen Saturation 89 % (90-100) Arterial Blood pH 7.30 (7.380-7.420) Arterial Blood Partial Pressure CO2 71 mmHg (38-42) Blood Gas Hemoglobin 10.1 G/DL (12.0-16.0) Imaging Last Impressions Chest X-Ray 11/14/17 0000 Signed Impressions: Service Date/Time: November 05:54 - CONCLUSION: Stable chest x-ray with subtle patchy airspace opacities in the mid and lower lung zone on the right. Ion Jones MD CT Angiography 11/13/17 0000 Signed Impressions: Service Date/Time: Monday, November 13, 2017 01:39 - CONCLUSION: 1. No PE is identified. 2. Patchy airspace consolidation in the right upper lobe suggesting an infectious or inflammatory process. 3. 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 The presumed penetrating atherosclerotic ulcer adjacent to the distal ascending arch is stable. 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 4. Stable right lower lobe round atelectasis versus parenchymal scar and chronic pleural thickening with calcification. Ion Jones MD PE at Discharge GENERAL: elderly male, in no apparent distress. CARDIOVASCULAR: Regular rate and regular rhythm without murmurs, gallops, or rubs. RESPIRATORY: bilateral rales GASTROINTESTINAL: Abdomen soft, non-tender, nondistended. Normal, active bowel sounds MUSCULOSKELETAL: Extremities without clubbing, cyanosis, or edema. NEURO: awake but confused. Hospital Course -Acute hypercapnic respiratory failure -Probable pneumonia right lung -Acute COPD exacerbation -Pulmonary hypertension likely due to COPD -will switch to po antibiotics upon discharge. -will taper off prednisone. -Supplemental oxygen to keep O2 saturation above 90% - Influenza type A -Continue Tamiflu 75 mg twice daily. -Atrial fibrillation - started on metoprolol 25 mg every 12 hours -continue Eliquis. -Anxiety/Depression -Continue Zoloft and Ativan as neede Pt Condition on Discharge: Deteriorating Discharge Disposition: [facility] (with hospice.) Discharge Time: > 30 minutes Discharge Instructions DIET: Follow Instructions for: Heart Healthy Diet Activities you can perform: Regular-No Restrictions Rinku Chew MD Nov 15, 2017 11:42
[2017-11-15 12:00] VITALS: BP 185/98; PULSE 77; RESP 20; TEMP 97.8; O2SAT 91
--- NOTE | 2017-11-15 13:21 | PD.CONS ---
Consult Service Palliative Care Consult Requested By Dr. Catrachita MD. Primary Care Physician Ki Brambila MD Reason for Consultation a. To assist with evaluation and management of symptoms including: Shortness of breath, restlessness. b. To assist medical decision maker(s) with: better understanding of current medical conditions; weighing benefits/burdens of medical treatment options; making medical treatment decisions. . HPI History of Present Illness Mr. Gooden is an 81-year-old correction [facility] resident with a known history of Alzheimer's disease with behavioral disturbances, hypertension, hyperlipidemia, coronary artery disease, atrial fibrillation, pacemaker, COPD, prostate cancer, bladder cancer, abdominal aortic aneurysm, and thoracic aortic aneurysm. Patient was brought to the [facility] Emergency Department on 11/12/17 from [facility] via EMS with reports of worsening dyspnea. Laboratory workup revealing leukocytosis of 14.1, Hgb 9.9. BUN/creatinine 22/1.03. UA negative for nitrites or leukocyte. CTA negative for PE. However, revealing patchy airspace consolidation in the right upper lobe suggesting infection. Severe atherosclerotic disease with stable AAA measuring up to 4.9 cm. Flu A positive. Patient was admitted for further management. Cardiology, Dr. Wu consulted on 11/14/17. Patient with significant history of cardiac disease to include atrial fibrillation. Patient was placed on Eliquis. Clinical course further complicated by persistent respiratory failure requiring intermittent BiPAP use. Overall prognosis is very poor given end- stage COPD, significant cardiac history, advanced dementia, acute illness to include pneumonia, advanced age and physical deconditioning. Palliative care consulted for further clarification so goals of care given the above. Reviewed past medical history and hospitalizations. Most recent hospitalization from 06/08/17 to 06/11/17 for to left hip fracture secondary to mechanical fall. Patient underwent ORIF on 06/09/17 without major complications. Palliative care was consulted for goals of care, he was seen by Dr. Lopez. At that time, patient's son Elder reported that the patient had a good [facility] life at the [facility] that gave him meaning and purpose. They feel he would want to continue to fight for this quality of life short of resuscitation. Therefore, family elected for rehabilitation and ultimately return to his [facility] where patient has a "girlfriend." Patient was discharged to [facility] for physical strengthening. Patient sitting in his room. In bed in moderate distress secondary to increased work of breathing. Paused speech secondary to dyspnea. Patient alert to self and situation. Denies shortness of breath, pain, nausea or vomiting. However, audible wheezing and increased work of breathing noted. Patient restless, trying to get off the bed. Poor safety awareness. Following simple commands. Blood gas today with O2 sat 89, PCO2 71. Patient was placed on BiPAP, however, discontinued given his increased restlessness and agitation. Patient pulling facemask off. He is afebrile, stable hemodynamically. He was placed back on 3 L nasal cannula. Most recent chest x-ray 11/14 revealing stable chest with patchy airspace opacities in the mid and lower right lung zone. Case discussed with Dr. Chew. Telephone conversation with patient's son Avelino Phillips (Elder). Medical update provided. Reviewed patient's past medical history and psychosocial history. Reviewed events leading to this hospitalization, clinical course and current medical management. Shared concerns of patient's worsening respiratory status given end-stage COPD, active pneumonia and flu. Reviewed overall poor prognosis given end-stage COPD, significant cardiac history, advanced dementia, acute illness to include pneumonia, advanced age and physical deconditioning. Hospice philosophy and benefits reviewed at length. Patient's son electing to transition patient to comfort-directed care with hospice given overall poor prognosis and pt known wishes. Family requesting for patient to be returned to his long-term facility with [facility] hospice. Referral sent, case discussed with case folder. . Function/Cognitive Trajectory The patient has suffered from dementia for many years. Because of his dementia he has been in his [facility] facility for approximately 4 years. He has had behavioral problems associated with his dementia and as a result he has been in several different facilities and has required a prolonged psychiatric hospitalization under the [place] Act. As per family, patient ambulating short distances with a walker. Multiple falls. Right hip fracture with ORIF in June 2017 secondary to mechanical fall. Patient requiring assistance with all ADLs besides feedings. . Review of Systems ROS Limitations: Clinical Condition, Altered Mental Status Constitutional: COMPLAINS OF: Pain, Generalized weakness, DENIES: Fever, Chills , Change in appetite Endocrine: DENIES: Heat/cold intolerance Eyes: DENIES: Eye pain Ears, nose, mouth, throat: DENIES: Nasal discharge, Oral lesions, Running Nose , Epistaxis Respiratory: COMPLAINS OF: Cough, Wheezing, Shortness of breath Cardiovascular: COMPLAINS OF: Dyspnea on Exertion, DENIES: Chest pain, Lower Extremity Edema Gastrointestinal: DENIES: Bloody stools, Nausea, Vomiting, Difficulty Swallowing Genitourinary: COMPLAINS OF: Urinary incontinence Musculoskeletal: COMPLAINS OF: Stiffness, Decreased range of motion Integumentary: DENIES: Rash, Tumors Hematologic/Lymphatics: COMPLAINS OF: Bruising Immunologic/Allergic: DENIES: Eczema Neurologic: DENIES: Headache, Localized weakness, Seizures, Tremor Psychiatric: COMPLAINS OF: Anxiety, Confusion, Agitation, DENIES: Hallucinations Past Family Social History Coded Allergies: No Known Allergies (Unverified , 06/12/17) Past Medical History * Alzheimer's disease with behavioral disturbances * COPD * Coronary artery disease status post bypass surgery * 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 Past Surgical History * Left hip ORIF 2016 * Permanent pacemaker implantation 2005 * Coronary artery bypass surgery * Coronary artery stents * Radiation seed implantation for prostate cancer * Bovine prosthetic valve placement 2005 . Reported Medications Levaquin (Levofloxacin) 500 Mg Tablet 500 Mg PO DAILY 5 Days Prednisone 5 Mg Tab 5 Mg PO DIRECTED 8 Days Eliquis (Apixaban) 2.5 Mg Tab 2.5 Mg PO BID 30 Days Metoprolol Tartrate 25 Mg Tab 25 Mg PO Q12HR 30 Days [Albuterol-Ipratropium Neb] 1 AMPULE Nebu 1 Ampule NEB Q6HR NEB PRN 14 Days Tamiflu (Oseltamivir Phosphate) 75 Mg Cap 75 Mg PO BID 3 Days Aspirin 325 Mg Tab 325 Mg PO DAILY 30 Days Lorazepam 0.5 Mg Tab 0.5 Mg PO Q6H PRN Methadone (Methadone HCl) 5 Mg Tab 2.5 Mg PO TID Ditropan (Oxybutynin Chloride) 5 Mg Tab 5 Mg PO Q12HR Carvedilol 25 Mg Tab 25 Mg PO BID Sertraline (Sertraline HCl) 100 Mg Tab 100 Mg PO DAILY . Current Medications Medications (Trade) Dose Ordered Sig/Renetta Route Start Time Stop Time Status Last Admin Piperacillin Sod/ Tazobactam Sod 100 ml @ 200 mls/hr Q6H IV 11/13/17 06:00 11/15/17 11:21 Pharmacy Profile Note 0 ml @ 0 mls/hr UNSCH OTHER 11/13/17 02:30 (NS Flush) 2 ml UNSCH PRN IV FLUSH 11/13/17 02:30 (NS Flush) 2 ml BID IV FLUSH 11/13/17 09:00 11/14/17 20:10 (Tylenol) 650 mg Q4H PRN PO 11/13/17 02:30 11/14/17 20:10 (Zofran Inj) 4 mg Q6H PRN IVP 11/13/17 02:30 (Narcan Inj) 0.4 mg UNSCH PRN IV PUSH 11/13/17 02:30 (Natividad-Colace) 1 tab BID PO 11/13/17 09:00 11/15/17 07:50 (Milk Of Magnesia Liq) 30 ml Q12H PRN PO 11/13/17 02:30 (Senokot) 17.2 mg Q12H PRN PO 11/13/17 02:30 (Dulcolax Supp) 10 mg DAILY PRN RECTAL 11/13/17 02:30 (Lactulose Liq) 30 ml DAILY PRN PO 11/13/17 02:30 (Ativan) 0.5 mg Q6H PRN PO 11/13/17 02:30 11/15/17 07:49 (Zoloft) 100 mg DAILY PO 11/13/17 09:00 11/15/17 07:50 Vancomycin HCl 1500 mg/Sodium Chloride 515 ml @ 257.5 mls/ hr Q24H IV 11/13/17 21:00 11/14/17 23:35 Miscellaneous Information SPECIFIC LAB TO BE [facility]ODERICK... ONCE ONCE .XX 11/15/17 20:45 11/15/17 20:46 (Eliquis) 5 mg BID PO 11/13/17 21:00 11/15/17 07:49 (Tamiflu) 75 mg BID PO 11/13/17 21:00 11/15/17 09:06 (Duoneb Neb) 1 ampule Q6HR NEB NEB 11/13/17 22:00 11/15/17 09:39 (Deltasone) 20 mg BID PO 11/13/17 21:00 11/15/17 07:50 (Lopressor) 25 mg Q12HR PO 11/14/17 21:00 11/15/17 07:49 (Albuterol Neb) 1.25 mg Q2HR NEB PRN NEB 11/15/17 08:15 Family History The patient's father of a traumatic brain injury. The patient's mother of a stroke when in her 60s. There is a daughter with liver cancer. . Substance Use Tobacco: Patient smoked approximately 1.5 packs per day of cigarettes for 45-50 years. He continues to smoke an occasional cigarette in his facility on a daily basis. Alcohol: No current use and no known history of abuse. Prescription med abuse: Patient has chronic pain and has been a chronic prescription opiate user. No known history of abuse. Illicits: No known history of illicits. . Psychosocial History Patient is originally from [place], [place]. He has been living in [place] since about 2011. The patient completed grade school. He is a [place] having served in the [place]. 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 The patient was twice. His second of 36 years approximately 6 -7 years ago. The patient has 3 children from his first marriage -- Avelino ( who goes by Elder); Nika; and Etelvina. They all live locally. There is a son by the second named Luis Miguel. The patient has been living in an [facility] facility due to his Alzheimer's disease for approximately 4 years. Family reports that he has a "girlfriend" at the facility. Her name is Flores Atwood , and the patient is very close to her. . Spiritual/Cultural Factors [employer] shanice. . Living Will: Copy in medical record Health Care Surrogate: Copy in medical record Date completed: 03/09/2013. . Health Care Surrogate(s): Patient's son Avelino Phillips (Elder) Listed as healthcare surrogate decision maker , alone or jointly with his Litzy Gooden. Documented care wishes: The patient has a living will which indicates he would not want life prolonging measures if he had a terminal illness, end-stage condition, or persistent vegetative state. It also states she would not want life prolonging measures if it were felt he could not be returned to a meaningful existence. Advance directives indicate that should the health care [facility] of Atty. disagree with what is stated in the living will, that the living will should be honored. . Family/friends goals: Comfort directed care with hospice. . Ethical and Legal Issues No ethical legal issues identified. . Physical Exam Vital Signs Date Time Temp Pulse Resp B/P (MAP) Pulse Ox O2 Delivery O2 Flow Rate FiO2 11/15/17 09:40 92 Nasal Cannula 3.00 11/15/17 09:30 92 Nasal Cannula 3.00 11/15/17 08:00 98.0 75 20 184/97 (126) 92 11/15/17 05:08 98.0 76 20 147/67 (93) 95 11/15/17 00:28 97.6 71 20 148/72 (97) 95 11/14/17 21:17 96 Nasal Cannula 2.00 11/14/17 21:15 76 30 169/88 (115) 96 11/14/17 20:50 Nasal Cannula 2.00 11/14/17 16:13 97 Nasal Cannula 2.00 11/14/17 16:00 98.6 69 20 160/76 (104) 95 11/14/17 16:00 69 11/15/17 11/16/17 19:00 07:00 Intake Total 100 ml Balance 100 ml IV Total 100 ml Exam CONSTITUTIONAL/GENERAL: This is an elderly male in bed in moderate distress secondary to increased work of breathing. TUBES/LINES/DRAINS: Nasal cannula, PAB. SKIN: No jaundice, rashes, or lesions. large areas of ecchymoses on upper extremities. No wounds seen anteriorly. Skin temperature appropriate. Not diaphoretic. HEAD: Atraumatic. Normocephalic. EYES: Pupils equal and round and reactive. Extraocular motions intact. No scleral icterus. No injection or drainage. ENT: Hearing grossly normal. Nose without bleeding or purulent drainage. Moist oral mucosa. NECK: Trachea midline. Supple, nontender. CARDIOVASCULAR: Irregular rate and rhythm. No JVD. RESPIRATORY/CHEST: Symmetric, increased work of breathing. Expiratory wheezes bilaterally. Paused speech secondary to dyspnea. GASTROINTESTINAL: Abdomen soft, non-tender, nondistended. No guarding. Bowel sounds present. GENITOURINARY: Without palpable bladder distension. MUSCULOSKELETAL: Extremities without clubbing, cyanosis, or edema. Muscle atrophy to all 4 extremities. NEUROLOGICAL: Awake and alert self and situation. Follows commands. Moves all extremities. PSYCHIATRIC: Restless. . Diagnostic Tests Laboratory Laboratory Tests Test 11/12/17 22:20 11/12/17 22:30 11/13/17 01:50 11/14/17 05:41 White Blood Count 14.1 TH/MM3 (4.0-11.0) Red Blood Count 3.49 MIL/MM3 (4.50-5.90) Hemoglobin 9.9 GM/DL (13.0-17.0) Hematocrit 29.8 % (39.0-51.0) Mean Corpuscular Volume 85.3 FL (80.0-100.0) Mean Corpuscular Hemoglobin 28.4 PG (27.0-34.0) Mean Corpuscular Hemoglobin Concent 33.3 % (32.0-36.0) Red Cell Distribution Width 14.6 % (11.6-17.2) Platelet Count 186 TH/MM3 (150-450) Mean Platelet Volume 7.5 FL (7.0-11.0) Neutrophils (%) (Auto) 85.2 % (16.0-70.0) Lymphocytes (%) (Auto) 5.6 % (9.0-44.0) Monocytes (%) (Auto) 8.3 % (0.0-8.0) Eosinophils (%) (Auto) 0.6 % (0.0-4.0) Basophils (%) (Auto) 0.3 % (0.0-2.0) Neutrophils # (Auto) 12.0 TH/MM3 (1.8-7.7) Lymphocytes # (Auto) 0.8 TH/MM3 (1.0-4.8) Monocytes # (Auto) 1.2 TH/MM3 (0-0.9) Eosinophils # (Auto) 0.1 TH/MM3 (0-0.4) Basophils # (Auto) 0.0 TH/MM3 (0-0.2) CBC Comment DIFF FINAL Differential Comment Prothrombin Time 11.6 SEC (9.8-11.6) Prothromb Time International Ratio 1.1 RATIO Activated Partial Thromboplast Time 28.5 SEC (24.3-30.1) D-Dimer Quantitative (PE/DVT) 9.98 MG/L FEU (0.00-0.50) Blood Urea Nitrogen 22 MG/DL (7-18) Creatinine 1.03 MG/DL (0.60-1.30) Random Glucose 116 MG/DL (74-106) Total Protein 7.0 GM/DL (6.4-8.2) Albumin 3.4 GM/DL (3.4-5.0) Calcium Level 8.4 MG/DL (8.5-10.1) Magnesium Level 2.0 MG/DL (1.5-2.5) Alkaline Phosphatase 73 U/L (45-117) Aspartate Amino Transf (AST/SGOT) 16 U/L (15-37) Alanine Aminotransferase (ALT/SGPT) 12 U/L (12-78) Total Bilirubin 0.8 MG/DL (0.2-1.0) Sodium Level 138 MEQ/L (136-145) Potassium Level 4.2 MEQ/L (3.5-5.1) Chloride Level 103 MEQ/L (98-107) Carbon Dioxide Level 30.6 MEQ/L (21.0-32.0) Anion Gap 4 MEQ/L (5-15) Estimat Glomerular Filtration Rate 69 ML/MIN (>89) Total Creatine Kinase 51 U/L (39-308) Troponin I LESS THAN 0.02 NG/ML B-Type Natriuretic Peptide 929 PG/ML (0-100) Blood Gas Puncture Site RT RADIAL RT RADIAL Blood Gas Patient Temperature 98.6 98.6 Blood Gas HCO3 28 mmol/L (22-26) 34 mmol/L (22-26) Blood Gas Base Excess 2.4 mmol/L (-2-2) 6.1 mmol/L (-2-2) Blood Gas Oxygen Saturation 94 % (90-100) 97 % (90-100) Arterial Blood pH 7.33 (7.380-7.420) 7.21 (7.380-7.420) Arterial Blood Partial Pressure CO2 55 mmHg (38-42) 88 mmHg (38-42) Arterial Blood Partial Pressure O2 95 mmHG (61-120) 127 mmHG (61-120) Arterial Blood Oxygen Content 12.3 Vol % (12.0-20.0) 13.4 Vol % (12.0-20.0) Arterial Blood Carboxyhemoglobin 2.8 % (0-4) 1.5 % (0-4) Arterial Blood Methemoglobin 0.3 % (0-2) 0.4 % (0-2) Blood Gas Hemoglobin 9.1 G/DL (12.0-16.0) 9.7 G/DL (12.0-16.0) Oxygen Delivery Device NASAL CANNULA NASAL CANNULA Blood Gas Liter Flow 2 L/M Urine Color YELLOW (YELLW/STRAW) Urine Turbidity CLEAR (CLEAR) Urine pH 5.5 (5.0-8.5) Urine Specific [employer] 1.015 (1.002-1.035) Urine Protein TRACE mg/dL (NEG-TRACE) Urine Glucose (UA) NEG mg/dL (NEG) Urine Ketones NEG mg/dL (NEG) Urine Occult Blood MOD (NEG) Urine Nitrite NEG (NEG) Urine Bilirubin NEG (NEG) Urine Urobilinogen LESS THAN 2.0 MG/DL (LESS Urine Leukocyte Esterase NEG (NEG) Urine RBC 2 /hpf (0-3) Urine WBC 1 /hpf (0-5) Urine Squamous Epithelial Cells <1 /hpf (0-5) Urine Hyaline Casts 1 /lpf (RARE) Urine Mucus FEW /lpf (OCC) Microscopic Urinalysis Comment CULT NOT INDICATED Blood Gas Inspired Oxygen 3 % Test 11/14/17 07:44 11/15/17 10:00 White Blood Count 15.1 TH/MM3 (4.0-11.0) Red Blood Count 3.36 MIL/MM3 (4.50-5.90) Hemoglobin 9.5 GM/DL (13.0-17.0) Hematocrit 28.8 % (39.0-51.0) Mean Corpuscular Volume 85.7 FL (80.0-100.0) Mean Corpuscular Hemoglobin 28.2 PG (27.0-34.0) Mean Corpuscular Hemoglobin Concent 32.9 % (32.0-36.0) Red Cell Distribution Width 15.0 % (11.6-17.2) Platelet Count 181 TH/MM3 (150-450) Mean Platelet Volume 7.6 FL (7.0-11.0) Neutrophils (%) (Auto) 90.8 % (16.0-70.0) Lymphocytes (%) (Auto) 2.2 % (9.0-44.0) Monocytes (%) (Auto) 6.9 % (0.0-8.0) Eosinophils (%) (Auto) 0.0 % (0.0-4.0) Basophils (%) (Auto) 0.1 % (0.0-2.0) Neutrophils # (Auto) 13.7 TH/MM3 (1.8-7.7) Lymphocytes # (Auto) 0.3 TH/MM3 (1.0-4.8) Monocytes # (Auto) 1.0 TH/MM3 (0-0.9) Eosinophils # (Auto) 0.0 TH/MM3 (0-0.4) Basophils # (Auto) 0.0 TH/MM3 (0-0.2) CBC Comment DIFF FINAL Differential Comment Blood Urea Nitrogen 37 MG/DL (7-18) Creatinine 1.26 MG/DL (0.60-1.30) Random Glucose 135 MG/DL (74-106) Calcium Level 8.4 MG/DL (8.5-10.1) Sodium Level 140 MEQ/L (136-145) Potassium Level 3.9 MEQ/L (3.5-5.1) Chloride Level 100 MEQ/L (98-107) Carbon Dioxide Level 35.4 MEQ/L (21.0-32.0) Anion Gap 5 MEQ/L (5-15) Estimat Glomerular Filtration Rate 55 ML/MIN (>89) Blood Gas Puncture Site RT RADIAL Blood Gas Patient Temperature 98.6 Blood Gas HCO3 34 mmol/L (22-26) Blood Gas Base Excess 7.5 mmol/L (-2-2) Blood Gas Oxygen Saturation 89 % (90-100) Arterial Blood pH 7.30 (7.380-7.420) Arterial Blood Partial Pressure CO2 71 mmHg (38-42) Arterial Blood Partial Pressure O2 68 mmHg (61-120) Arterial Blood Oxygen Content 12.7 Vol % (12.0-20.0) Arterial Blood Carboxyhemoglobin 1.7 % (0-4) Arterial Blood Methemoglobin 0.8 % (0-2) Blood Gas Hemoglobin 10.1 G/DL (12.0-16.0) Oxygen Delivery Device NASAL CANNULA Result Diagram: 11/14/17 0744 11/14/17 0744 Microbiology Microbiology Date/Time Source Procedure Growth Status 11/12/17 23:40 Blood Peripheral Aerobic Blood Culture - Preliminary NO GROWTH IN 3 DAYS Resulted 11/12/17 23:40 Blood Peripheral Anaerobic Blood Culture - Preliminary NO GROWTH IN 3 DAYS Resulted 11/12/17 23:35 Blood Peripheral Aerobic Blood Culture - Preliminary NO GROWTH IN 3 DAYS Resulted 11/12/17 23:35 Blood Peripheral Anaerobic Blood Culture - Preliminary NO GROWTH IN 3 DAYS Resulted 11/12/17 22:35 Blood Peripheral Aerobic Blood Culture - Preliminary NO GROWTH IN 3 DAYS Resulted 11/12/17 22:35 Blood Peripheral Anaerobic Blood Culture - Preliminary NO GROWTH IN 3 DAYS Resulted 11/12/17 22:25 Blood Peripheral Aerobic Blood Culture - Preliminary NO GROWTH IN 3 DAYS Resulted 11/12/17 22:25 Blood Peripheral Anaerobic Blood Culture - Preliminary NO GROWTH IN 3 DAYS Resulted 11/13/17 01:55 Nasal Washing Influenza Types A,B Antigen (CHER) - Final Positive For Flu A Antigen Complete Imaging Last Impressions Chest X-Ray 11/14/17 0000 Signed Impressions: Service Date/Time: November 05:54 - CONCLUSION: Stable chest x-ray with subtle patchy airspace opacities in the mid and lower lung zone on the right. Ion Jones MD CT Angiography 11/13/17 0000 Signed Impressions: Service Date/Time: Monday, November 13, 2017 01:39 - CONCLUSION: 1. No PE is identified. 2. Patchy airspace consolidation in the right upper lobe suggesting an infectious or inflammatory process. 3. 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 The presumed penetrating atherosclerotic ulcer adjacent to the distal ascending arch is stable. 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 4. Stable right lower lobe round atelectasis versus parenchymal scar and chronic pleural thickening with calcification. Ion Jones MD Patient/Family Conference Present at Family Conference: son Elder. Family Conference Time (mins): 34 Family Conference Location: Telephone Issues Discussed: * Palliative care role, purpose, approach * Additional medical, psychosocial, and spiritual history * Patients general health, functional status, and cognitive changes in the months leading up to the current hospitalization * Patient/family understanding of the current medical problems * Patient/family understanding of prognosis * Patients goals of care as best understood from advance directives and/or conversations and/or values * Current medical treatment options and benefits/burdens of those options * Likely scenarios comparing ongoing aggressive care with a transition to comfort measures only * Questions answered to the best of my ability * Palliative care contact information provided * Hospice philosophy and benefits . Assessment and Plan Disease Oriented Problem List: (1) Respiratory failure (2) COPD exacerbation (3) Influenza (4) Pneumonia (5) Thoracic aortic aneurysm (6) History of atrial fibrillation (7) Dementia Symptom Scale: (1) Pain 0-10 Scale: Unable to quantify (2) Agitation 0-10 Scale: Unable to quantify (3) Dyspnea 0-10 Scale: Unable to quantify Pertinent Non-Medical Issues Psychosocial: Originally from [place]. 4 yr resident of [facility]. 3 children live in area. [place] . Spiritual: [employer] shanice. Legal: Health care POA and Living Will entered into [facility] EMR Ethical issues impacting care: None known. . Important Contacts Patient's son Avelino Powers) , . . Prognosis Mr. Gooden is an 81-year-old correction [facility] resident with a known history of Alzheimer's disease with behavioral disturbances, hypertension, hyperlipidemia, coronary artery disease, atrial fibrillation, pacemaker, COPD, prostate cancer, bladder cancer, abdominal aortic aneurysm, and thoracic aortic aneurysm who was brought to the [facility] Emergency Department from [facility] via EMS. Patient admitted for management of pneumonia, flu positive. Clinical course complicated by persistent respiratory with increased oxygen requirement failure requiring BiPAP. Patient with progressive decline as evidenced by multiple recent hospitalizations. Overall prognosis is poor. Patient at high risk for further complications, continued decline and . Patient hospice appropriate given end-stage COPD should family elects comfort-directed care. . Code Status: No Code Plan * CODE STATUS: No code. DNR/DNI. * HEALTHCARE DECISION-MAKING: Patient unable to participate in medical decision making secondary to advanced dementia. He will not regain medical decision- making capacity given progressive disease. Advance directives completed, patient's son Avelino Powers) is healthcare surrogate decision maker, alone or jointly with his Litzy Gooden. Son Elder has accepted this role. * GOALS OF CARE: Patient's son Avelino Powers) acting as healthcare surrogate decision maker, has elected to transition patient to comfort-directed care with hospice given overall poor prognosis and known wishes as stated in patient's living will. Family wishing for patient to be discharge to his long- term facility with [facility]. Case discussed with case management, [facility] hospice referral made. * SYMPTOMS: * Dyspnea: Patient has known ES COPD. He still smokes at his facility when he can get access to cigarettes. He is not normally on 02 at the facility, but family reports he is SOB with any exertion. Currently admitted for pneumonia, positive flu. Intermittent BiPAP and [place]. * Patient is a chronic pain patient. Family says his complaints are primarily his feet and in the past they have been told these are arthritic pains. 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 * Agitation/delirium: Patient has a long history of behavioral problems associated with his dementia. He has been combative and has been discharged from facilities for these behaviors. [place] [facility] unit for these problems. Family reports that patient is prone to acute delirium when taken out of his familiar environment. He frequently ends up needing restraints and additional medication when in for an acute hospitalization. He was noted restless during my visit. Lorazepam 0.5mg every 6 hours available as needed. * Case discussed with Dr. Chew and bedside RN. * Palliative care contact information has been provided to patient and family. * Palliative care will continue to follow up for further clarification of goals of care as patient's clinical course continues to evolve. . Time Spent Total Floor Time (mins): 67 (Total time to include review of summarization of available medical records to include prior acute hospitalizations and multiple ED visits, physical exam, goals of care conversation with patient's son, case discussion with attending and bedside RN.) >50% Counseling/Coord of Care: Yes Thank you for the opportunity to participate in the care of Mr. Gooden. Attestation To help prompt me to consider important information that might be impacting today's encounter and assessment, information from prior notes written by myself or my colleagues may have been "brought forward" into today's note. My signature on this note, however, is an attestation that I personally performed the exam, history, and/or decision-making noted today, and, unless otherwise indicated, the interactions with patient, family, and staff as well as the review of records all occurred today. I also attest that the listed assessment and stated plan reflect my best clinical judgment today based on the combination of historical information, prior notes, and today's exam/ interactions. When time spent is documented, it refers only to time spent today by the signer, or if indicated, combined time spent today by collaborating physician/nurse practitioner. Flores Holt Nov 15, 2017 13:21
[2017-11-15 15:13] VITALS: O2SAT 91
[2017-11-15] MEDS ORDERED: PHARMACY ORDERED LAB ONE (20:45)
== END 2017-11-15 16:05 | DRG 193 ==
LOC: EDBD 22:12 → NEPE 22:12 → NEDA 11-13 02:29 → NEDH 11-13 06:40 → NEPGCP 11-13 18:31 → N03B 11-14 08:18 → N05A 11-14 20:29
PROVIDERS: ADMIT Internal Medicine; ATTEND Internal Medicine
PROC: 4B02XSZ Measurement of Cardiac Pacemaker, External Approach (ICD-10-PCS; 2017-11-13)
PROC: 5A09357 Assistance with Respiratory Ventilation, Less than 24 Consecutive Hours, Continuous Positive Airway Pressure (ICD-10-PCS; principal; 2017-11-14)
DX: J09.X1 Influenza due to identified novel influenza A virus with pneumonia (principal); J96.02 Acute respiratory failure with hypercapnia; J44.0 Chronic obstructive pulmonary disease with (acute) lower respiratory infection; F02.81 Dementia in other diseases classified elsewhere, unspecified severity, with behavioral disturbance; J44.1 Chronic obstructive pulmonary disease with (acute) exacerbation; I27.20 Pulmonary hypertension, unspecified; I25.10 Atherosclerotic heart disease of native coronary artery without angina pectoris; G30.9 Alzheimer's disease, unspecified; F41.8 Other specified anxiety disorders; E78.5 Hyperlipidemia, unspecified; F17.210 Nicotine dependence, cigarettes, uncomplicated; G89.29 Other chronic pain; I48.2 Chronic atrial fibrillation; I71.2 Thoracic aortic aneurysm, without rupture; I71.4 Abdominal aortic aneurysm, without rupture; E03.9 Hypothyroidism, unspecified; R29.6 Repeated falls; Z51.5 Encounter for palliative care; I50.9 Heart failure, unspecified; I11.0 Hypertensive heart disease with heart failure; Z95.5 Presence of coronary angioplasty implant and graft; Z85.46 Personal history of malignant neoplasm of prostate; Z85.51 Personal history of malignant neoplasm of bladder; Z92.3 Personal history of irradiation; Z95.3 Presence of xenogenic heart valve; Z95.1 Presence of aortocoronary bypass graft; Z95.0 Presence of cardiac pacemaker
CPT/HCPCS: 36600; 71045; 71275; 80048; 80053; 81001; 82550; 82805; 83735; 83880; 84484; 85025; 85379; 85610; 85730; 87040; 87804; 93005; 93306; 94002; 94003; 94640; 94664; 96365; 96366; J1644; J1940; J2543; J3370; J7040; J7050; J7512; Q9967